=== PATIENT | female | born 1935 | race Caucasian/White ===

== ENCOUNTER 2016-05-29 17:43 | Inpatient (IN) | payer OTHER, MEDICARE ==
[2016-05-29 17:51] VITALS: BMI 26.1
--- NOTE | 2016-05-29 17:51 | PDOC ---
History of Present Illness <ValenteAmeliadiana Soria - Last Filed: 05/29/16 22:59> <Courtney Weaver - Last Filed: 06/02/16 21:48> - General Chief Complaint: Pain Stated Complaint: PCP SENT/BLOOD CLOT IN LT LEG Time Seen by Provider: 05/29/16 17:46 Past History <Amelia Victor - Last Filed: 05/29/16 22:59> <Courtney Weaver - Last Filed: 06/02/16 21:48> - Past Medical History Allergies/Adverse Reactions: Allergies Allergy/AdvReac Type Severity Reaction Status Date / Time No Known Allergies Allergy Verified 05/29/16 17:46 Home Medications: Ambulatory Orders Furosemide [Lasix -] 40 mg PO DAILY 05/29/16 Metoprolol Succinate [Toprol Xl -] 25 mg PO DAILY 05/29/16 Pantoprazole Sodium [Protonix] 40 mg PO DAILY 05/29/16 Potassium Chloride 8 meq PO DAILY 05/29/16 Zolpidem Tartrate [Ambien] 10 mg PO HS PRN 05/29/16 *Physical Exam - Vital Signs Last Vital Signs Temp Pulse Resp BP Pulse Ox 97.0 F L 63 18 119/71 97 05/29/16 17:46 05/29/16 17:46 05/29/16 17:46 05/29/16 17:46 05/29/16 17:46 <ValenteAmeliadiana Soria - Last Filed: 05/29/16 22:59> ED Treatment Course - LABORATORY CBC & Chemistry Diagram: 05/29/16 18:45 05/29/16 18:45 - ADDITIONAL ORDERS Additional order review: Laboratory Results 05/29/16 05/29/16 05/29/16 18:45 18:45 17:48 INR Cancelled 0.96 PTT (Actin FS) 33.8 Sodium 143 Potassium 4.1 Chloride 108 H Carbon Dioxide 26 Anion Gap 9 BUN 16 Creatinine 1.3 H Creat Clearance w eGFR 39.12 Random Glucose 76 Calcium 8.3 L Total Bilirubin 0.7 AST 15 ALT 13 Alkaline Phosphatase 111 Total Protein 6.6 Albumin 3.3 L 05/29/16 18:45 RBC 4.06 MCV 77.8 L MCHC 31.0 L RDW 21.0 H MPV 7.7 Neutrophils % 62.7 Lymphocytes % 21.1 Monocytes % 10.3 H Eosinophils % 3.6 Basophils % 2.3 H - RADIOLOGY Radiology Studies Ordered: Category Date Time Status CHEST CTA [CT] Stat CT Scan 05/29/16 20:43 Ordered <Amelia Victor - Last Filed: 05/29/16 22:59> - LABORATORY CBC & Chemistry Diagram: 06/02/16 07:05 06/01/16 06:30 <Courtney Weaver - Last Filed: 06/02/16 21:48> Medical Decision Making - Medical Decision Making 05/29/16 17:47 RAPID MEDICAL TRIAGE: Pt was found to have a DVT on ultrasound today. Dr. Tripathi sent her for the sono. She has left leg pain and swelling. She has complaint of SOB. 05/29/16 17:[address] Melendez, and her pulonologist is Dr. Cisneros PSHx: knee operation bilat; Left hip operation; Left shoulder operation; cholecystectomy, hysterectomy. <Courteny Weaver - Last Filed: 06/02/16 21:48> *DC/Admit/Observation/Transfer - Discharge Dispostion Admit: Yes <Amelia Victor - Last Filed: 05/29/16 22:59> <Courtney Weaver - Last Filed: 06/02/16 21:48> Diagnosis at time of Disposition: Deep venous thrombosis of left popliteal vein Qualifiers: Chronicity: acute Qualified Code(s): I82.432 - Acute embolism and thrombosis of left popliteal vein
[2016-05-29 19:17] LABS: BASOPHIL 2.3 % (0-2.0); EOSINOPHIL 3.6 % (0-4.5); MCH 24.1 pg (25.7-33.7); MEAN CELL VOLUME 77.8 fl (80-96); MEAN PLT VOLUME 7.7 fl (7.5-11.1); NEUTROPHILS 62.7 % (42.8-82.8); PLATELET COUNT 171 K/MM3 (134-434); WHITE BLOOD COUNT 4.4 K/mm3 (4.0-10.0)
[2016-05-29 19:52] LABS: ALBUMIN 3.3 g/dl (3.4-5.0); BILIRUBIN,TOTAL 0.7 mg/dL (0.2-1.0); CALCIUM 8.3 mg/dL (8.5-10.1); CREATININE 1.3 mg/dL (0.55-1.02); TOT PROT 6.6 g/dl (6.4-8.2)
[2016-05-29 20:11] LABS: INR 0.96 (0.82-1.09); PROTHROMBIN TIME (PATIENT) 10.6 SEC (9.98-11.88)
[2016-05-29 20:13] LABS: ACTIVATED PTT 33.8 SECONDS (26.9-34.4)
[2016-05-29 20:47] LABS: ANISOCYTOSIS 2+
[2016-05-29] MEDS ORDERED: HEPARIN NA (PORCINE) 5,000 UNITS/ML 1ML VIAL IVPUSH PRN ×2 (21:32)
[2016-05-29] MEDS ORDERED: SODIUM CHLORIDE 250 ML IV STA (21:54)
[2016-05-29] MEDS ORDERED: SODIUM CHLORIDE 1,000 ML IV SCH (22:00)
[2016-05-29] MEDS ORDERED: HEPARIN NA (PORCINE) 5,000 UNITS/ML 1ML VIAL ONE (22:16)
[2016-05-29] MEDS ORDERED: HEPARIN INFUSION - 500 ML IVPB ONE (22:16)
[2016-05-29] MEDS: HEPARIN - 25,000 UNIT in SODIUM CHLORIDE 495 ML IV SCH (22:26)
--- NOTE | 2016-05-29 22:59 | PDOC ---
History of Present Illness <Amelia Victor - Last Filed: 05/29/16 22:59> - General History Source: Patient Exam Limitations: No Limitations - History of Present Illness Initial Comments: 05/29/16 23:07 The patient is an 81 year old female, with a significant past medical history of significant GI bleeds(transfusion of 18 units), who presents to the emergency department s/p diagnosis of left popliteal DVT during an ultrasound earlier today. The patient reports she has been short of breath for several days. She reports a history of a left ankle fracture with associated chronic swelling at site of fracture. She states, at first she did not pay much attention to her swelling, because her SOB was progressively worsening and was of greater concern. She reports visiting her body team member, Dr. Tripathi who did a cardiac workup and referred her to administrative support associate Dr. Cisneros. The patient reports Dr. Tripathi has sent her to the ED for follow-up on lower extremity edema and SOB. The patient reports associated dyspnea on exertion. The patient denies any chest pain, palpitations, or diaphoresis. The patient denies any fever, chills, headache, or dizziness. Allergies: None reported. Past Surgical History: Bilateral knee repair, left hip repair, left shoulder repair, cholecystectomy, hysterectomy Social History: Non-smoker. Denies alcohol or drug use. PCP: Dr. Tracey Section Cutter: Dr. Tripathi Licensed Acupuncturist: Dr. Cisneros <Elda Scruggs - Last Filed: 05/29/16 23:18> - General Chief Complaint: Pain Stated Complaint: PCP SENT/BLOOD CLOT IN LT LEG Time Seen by Provider: 05/29/16 17:46 Past History - Past Medical History Other medical history: ARITHIS - Surgical History Cholecystectomy: Yes - Psycho/Social/Smoking Cessation Hx Anxiety: No Suicidal Ideation: No Smoking History: Never smoked Have you smoked in the past 12 months: No Information on smoking cessation initiated: No Hx Alcohol Use: No Drug/Substance Use Hx: No Substance Use Type: None <Amelia Victor Estella - Last Filed: 05/29/16 22:59> <Elda Scruggs - Last Filed: 05/29/16 23:18> - Past Medical History Allergies/Adverse Reactions: Allergies Allergy/AdvReac Type Severity Reaction Status Date / Time No Known Allergies Allergy Verified 05/29/16 17:46 Home Medications: Ambulatory Orders Furosemide [Lasix -] 40 mg PO DAILY 05/29/16 Metoprolol Succinate [Toprol Xl -] 25 mg PO DAILY 05/29/16 Pantoprazole Sodium [Protonix] 40 mg PO DAILY 05/29/16 Potassium Chloride 8 meq PO DAILY 05/29/16 Zolpidem Tartrate [Ambien] 10 mg PO HS PRN 05/29/16 Review of Systems - Review of Systems Able to Perform ROS?: Yes Comments:: 05/29/16 23:07 CONSTITUTIONAL: Absent: fever, chills, diaphoresis, generalized weakness, malaise, loss of appetite HEENT: Absent: rhinorrhea, nasal congestion, throat pain, throat swelling, difficulty swallowing, mouth swelling, ear pain, eye pain, visual Changes CARDIOVASCULAR: Absent: chest pain, syncope, palpitations, irregular heart rate, lightheadedness , peripheral edema RESPIRATORY: Present: +shortness of breath, +dyspnea with exertion Absent: orthopnea, wheezing, stridor, hemoptysis GASTROINTESTINAL: Absent: abdominal pain, abdominal distension, nausea, vomiting, diarrhea, constipation, melena, hematochezia GENITOURINARY: Absent: dysuria, frequency, urgency, hesitancy, hematuria, flank pain, genital pain MUSCULOSKELETAL: Present: +Left lower extremity edema Absent: myalgia, arthralgia SKIN: Absent: rash, itching, pallor HEMATOLOGIC/IMMUNOLOGIC: Absent: easy bruising, lymphadenopathy, frequent infections ENDOCRINE: Absent: unexplained weight gain, unexplained weight loss, heat intolerance, cold intolerance NEUROLOGIC: Absent: headache, focal weakness or paresthesias, dizziness, unsteady gait, seizure, mental status changes, bladder or bowel incontinence PSYCHIATRIC: Absent: anxiety, depression, suicidal or homicidal ideation, hallucinations. <Elda Scruggs - Last Filed: 05/29/16 23:18> *Physical Exam - Vital Signs Last Vital Signs Temp Pulse Resp BP Pulse Ox 97.3 F L 71 20 110/64 95 05/29/16 22:28 05/29/16 22:28 05/29/16 22:28 05/29/16 22:28 05/29/16 22:28 <Amelia Victor - Last Filed: 05/29/16 22:59> - Vital Signs Last Vital Signs Temp Pulse Resp BP Pulse Ox 97.3 F L 71 20 110/64 95 05/29/16 22:28 05/29/16 22:28 05/29/16 22:28 05/29/16 22:28 05/29/16 22:28 - Physical Exam Comments: 05/29/16 23:08 GENERAL: Well developed, well nourished. Awake and alert. No acute distress. HEENT: Normocephalic, atraumatic. PERRLA, EOMI. No conjunctival pallor. Sclera are non- icteric. Moist mucous membranes. Oropharynx is clear. NECK: Supple. Full ROM. No JVD. Carotid pulses 2+ and symmetric, without bruits. No thyromegaly. No lymphadenopathy. CARDIOVASCULAR: Regular rate and rhythm. No murmurs, rubs, or gallops. Distal pulses are 2+ and symmetric. PULMONARY: No evidence of respiratory distress. Lungs clear to auscultation bilaterally. No wheezing, rales or rhonchi. ABDOMINAL: Soft. Non-tender. Non-distended. No rebound or guarding. No organomegaly. Normoactive bowel sounds. MUSCULOSKELETAL Normal range of motion at all joints. No bony deformities or tenderness. No CVA tenderness. EXTREMITIES: Edema to the left leg. Left leg mildly tender to palpation. No evidence of induration, erythema, red streaking, or cellulitis to the left leg. No cyanosis. No clubbing. SKIN: Warm and dry. Normal capillary refill. No rashes. No jaundice. NEUROLOGICAL: Alert, awake, appropriate. Cranial nerves 2-12 intact. No deficits to light touch and temperature in face, upper extremities and lower extremities. No motor deficits in the in face, upper extremities and lower extremities. Normoreflexic in the upper and lower extremities. Normal speech. Toes are down- going bilaterally. Gait is normal without ataxia. PSYCHIATRIC: Cooperative. Good eye contact. Appropriate mood and affect. <Elda Scruggs - Last Filed: 05/29/16 23:18> Heart Score/ECG Review - ECG Impressions Comment:: 05/29/16 23:10 Vent. Rate: 60 bpm IMPRESSION: Normal sinus rhythm. <Elda Scruggs - Last Filed: 05/29/16 23:18> ED Treatment Course - LABORATORY CBC & Chemistry Diagram: 05/29/16 18:45 05/29/16 18:45 - ADDITIONAL ORDERS Additional order review: Laboratory Results 05/29/16 05/29/16 05/29/16 18:45 18:45 17:48 INR Cancelled 0.96 PTT (Actin FS) 33.8 Sodium 143 Potassium 4.1 Chloride 108 H Carbon Dioxide 26 Anion Gap 9 BUN 16 Creatinine 1.3 H Creat Clearance w eGFR 39.12 Random Glucose 76 Calcium 8.3 L Total Bilirubin 0.7 AST 15 ALT 13 Alkaline Phosphatase 111 Total Protein 6.6 Albumin 3.3 L 05/29/16 18:45 RBC 4.06 MCV 77.8 L MCHC 31.0 L RDW 21.0 H MPV 7.7 Neutrophils % 62.7 Lymphocytes % 21.1 Monocytes % 10.3 H Eosinophils % 3.6 Basophils % 2.3 H - RADIOLOGY Radiology Studies Ordered: Category Date Time Status CHEST CTA [CT] Stat CT Scan 05/29/16 20:43 Taken - Medications Given in the ED: ED Medications Discontinued Medications Generic Name Dose Route Start Last Admin Trade Name Freq PRN Reason Stop Dose Admin Sodium Chloride 250 mls @ 500 mls/hr 05/29/16 21:54 05/29/16 22:27 Normal Saline - IV 05/29/16 22:23 500 mls/hr ASDIR STA Administration <Amelia Victor - Last Filed: 05/29/16 22:59> - LABORATORY CBC & Chemistry Diagram: 05/29/16 18:45 05/29/16 18:45 - ADDITIONAL ORDERS Additional order review: Laboratory Results 05/29/16 05/29/16 05/29/16 18:45 18:45 17:48 INR Cancelled 0.96 PTT (Actin FS) 33.8 Sodium 143 Potassium 4.1 Chloride 108 H Carbon Dioxide 26 Anion Gap 9 BUN 16 Creatinine 1.3 H Creat Clearance w eGFR 39.12 Random Glucose 76 Calcium 8.3 L Total Bilirubin 0.7 AST 15 ALT 13 Alkaline Phosphatase 111 Total Protein 6.6 Albumin 3.3 L 05/29/16 18:45 RBC 4.06 MCV 77.8 L MCHC 31.0 L RDW 21.0 H MPV 7.7 Neutrophils % 62.7 Lymphocytes % 21.1 Monocytes % 10.3 H Eosinophils % 3.6 Basophils % 2.3 H - RADIOLOGY Radiograph Interpretation: 05/29/16 23:11 EXAM: CXR INTERPRETED BY: Dr. Taveras REVIEWED BY: Dr. Victor IMPRESSION: The cardiac silhouette is slightly enlarged with mild unfolding of the aortic arch and a tortuous descending thoracic aorta. There are mild perihilar increased lung markings. Mediastinum and visualized osseous structures appear intact with mild to moderate dextroscoliosis of the thoracic spine. A left shoulder prosthesis is present in satisfactory alignment. EXAM: Chest CTA INTERPRETED BY: Dr. Taveras REVIEWED BY: Dr. Victor IMPRESSION: There is no evidence of a pulmonary embolus in the main pulmonary artery and its proximal branches , bilaterally. Right hepatic lobe cyst measuring 1.9 cm. Nonvisualization of the gallbladder with dilatation of the common hepatic duct and borderline dilatation of the common bile duct. Please correlate with ultrasound. There is also a large partially included cystic density anterior to the right kidney for which further evaluation with CT scan of the abdomen and pelvis is needed. - Medications Given in the ED: ED Medications Discontinued Medications Generic Name Dose Route Start Last Admin Trade Name Freq PRN Reason Stop Dose Admin Sodium Chloride 250 mls @ 500 mls/hr 05/29/16 21:54 05/29/16 22:27 Normal Saline - IV 05/29/16 22:23 500 mls/hr ASDIR STA Administration <Elda Scruggs - Last Filed: 05/29/16 23:18> Medical Decision Making - Medical Decision Making 05/29/16 23:08 First call placed to Dr. Tracey at 21:35. Case discussed. Dr. Tracey agreed to come and see the patient in the ED. <Elda Scruggs - Last Filed: 05/29/16 23:18> *DC/Admit/Observation/Transfer <Amelia Victor - Last Filed: 05/29/16 22:59> - Attestations Scribe Attestion: 05/29/16 23:10 Documentation prepared by Elda Scruggs, acting as medical doctor for Amelia Victor MD. <Elda Scruggs - Last Filed: 05/29/16 23:18> Diagnosis at time of Disposition: Deep venous thrombosis of left popliteal vein Qualifiers: Chronicity: acute Qualified Code(s): I82.432 - Acute embolism and thrombosis of left popliteal vein
--- NOTE | 2016-05-29 23:49 | HP ---
Admitting History and Physical - Admission Chief Complaint: dyspnea History of Present Illness: 81 y/o female with poor medical follow up brought to our office by family member for progressive SOB over months. She resides in [place] and was hospitalized over a week ago for several days for "bronchitis" she was treated and discharged but her breathing never improved. Patient was seen at the office and referred to pulmonary ( Dr Cisneros) as out patient / she was also seen by Cardiology ( Dr Tripathi ). Out patient u/s significant for DVT, left Popliteal, she was sent to ER. She also reports hx of Left ankle fracture and chronic swelling after said fx, but followed by podiatry and no recent changes reported Patient denies Chest pain / diaphoresis/ fever / chill / productive coughing History Source: Patient, Family Member, Friend, Medical Record Limitations to Obtaining History: Poor Historian - Past Medical History Pulmonary: Yes: Other (progresive SOB) ...: No Heme/Onc: Yes: Other (bleeding disorder ?? unclear stated had GI bleed that required 18 unit of blood ???) Musculoskeletal: Yes: Osteoarthritis - Past Surgical History Past Surgical History: Yes: Arthrosocopy, Cholecystectomy, Hysterectomy, Joint Replacement - Smoking History Smoking history: Never smoked Have you smoked in the past 12 months: No - Alcohol/Substance Use Hx Alcohol Use: No - Social History Usual Living Arrangement: Yes: Alone ADL: Family Assistance History of Recent Travel: No Home Medications - Allergies Allergies/Adverse Reactions: Allergies Allergy/AdvReac Type Severity Reaction Status Date / Time No Known Allergies Allergy Verified 05/29/16 17:46 - Home Medications Home Medications: Ambulatory Orders Furosemide [Lasix -] 40 mg PO DAILY 05/29/16 Metoprolol Succinate [Toprol Xl -] 25 mg PO DAILY 05/29/16 Pantoprazole Sodium [Protonix] 40 mg PO DAILY 05/29/16 Potassium Chloride 8 meq PO DAILY 05/29/16 Zolpidem Tartrate [Ambien] 10 mg PO HS PRN 05/29/16 Review of Systems - Review of Systems Constitutional: reports: No Symptoms Eyes: reports: No Symptoms Neck: reports: No Symptoms Cardiovascular: reports: Shortness of Breath Respiratory: reports: Exercise Intolerance, Orthopnea, SOB on Exertion, Wheezing Gastrointestinal: reports: No Symptoms Genitourinary: reports: No Symptoms Breasts: reports: No Symptoms Reported Musculoskeletal: reports: No Symptoms Integumentary: reports: No Symptoms Neurological: reports: No Symptoms Endocrine: reports: No Symptoms Hematology/Lymphatic: reports: No Symptoms Psychiatric: reports: No Symptoms Physical Examination Vital Signs: Vital Signs Temperature 97.3 F L 05/29/16 22:28 Pulse Rate 71 05/29/16 22:28 Respiratory Rate 20 05/29/16 22:28 Blood Pressure 110/64 05/29/16 22:28 O2 Sat by Pulse Oximetry (%) 95 05/29/16 22:28 Constitutional: Yes: Well Nourished, Moderate Distress (MCKEON - just walked back from bathroom unable to speak in full sentences. "holding her chest" but denies chest pain) Eyes: Yes: WNL HENT: Yes: WNL Neck: Yes: WNL Cardiovascular: Yes: WNL Respiratory: Yes: Diminished, Poor Air Entry, Rhonchi, Wheezes Gastrointestinal: Yes: Normal Bowel Sounds, Soft Renal/: Yes: WNL Musculoskeletal: Yes: WNL Extremities: Yes: WNL Edema: LLE: 1+, RLE: 1+ Peripheral Pulses: Left Radial: 1+, Right Radial: 1+, Left Doralis Pedis: 1+, Right Dorsalis Pedis: 1+, Left Femoral: 1+, Right Femoral: 1+ Integumentary: Yes: WNL Neurological: Yes: Alert, Oriented Problem List - Problems (1) Dyspnea Code(s): R06.00 - DYSPNEA, UNSPECIFIED (2) Deep venous thrombosis of left popliteal vein Code(s): I82.432 - ACUTE EMBOLISM AND THROMBOSIS OF LEFT POPLITEAL VEIN Qualifiers: Chronicity: acute Qualified Code(s): I82.432 - Acute embolism and thrombosis of left popliteal vein (3) Dyspnea on exertion Code(s): R06.09 - OTHER FORMS OF DYSPNEA (4) HTN (hypertension) Code(s): I10 - ESSENTIAL (PRIMARY) HYPERTENSION Assessment/Plan ASSMT / plan # DVT A/c - observe for bleeding ?? IVC filter vs digital specialist a/c # Dyspnea COPD no hx of smoking but admits many yrs of 2nd hand smoking recently treated for Bronchitis with abx / nebulizer without improvment of sx progressive over many "months to years" will d/c BBlocker Echcardiogram for LVF ? CHF component # Gi Bleed by hx will havve to request hx from family or hosp PPi for gi prophylaxis # HTN follow Bp resume meds if needed, will give amlodipine
[2016-05-30] MEDS ORDERED: methylPREDNISolone NA SUCC 125 MG/2 ML VIAL ONE (02:38)
[2016-05-30] MEDS: methylPREDNISolone NA SUCC 125 MG/2 ML VIAL IVPB SCH ×4 (02:39→21:44)
[2016-05-30 05:35] LABS: BASOPHIL 1.4 % (0-2.0); EOSINOPHIL 2.3 % (0-4.5); MCH 24.1 pg (25.7-33.7); MCHC 31.6 g/dl (32.0-36.0); MEAN CELL VOLUME 76.4 fl (80-96); MEAN PLT VOLUME 7.9 fl (7.5-11.1); NEUTROPHILS 83.6 % (42.8-82.8); PLATELET COUNT 137 K/MM3 (134-434); RDW 20.7 % (11.6-15.6)
[2016-05-30 06:33] LABS: ALBUMIN 2.7 g/dl (3.4-5.0); BILIRUBIN,TOTAL 0.4 mg/dL (0.2-1.0); CALCIUM 7.9 mg/dL (8.5-10.1); CREATININE 1.2 mg/dL (0.55-1.02); TOT PROT 5.9 g/dl (6.4-8.2)
[2016-05-30 08:08] LABS: BASOPHIL 1.3 % (0-2.0); EOSINOPHIL 0.6 % (0-4.5); MCH 23.8 pg (25.7-33.7); MCHC 30.9 g/dl (32.0-36.0); MEAN PLT VOLUME 7.6 fl (7.5-11.1); NEUTROPHILS 83.3 % (42.8-82.8); PLATELET COUNT 129 K/MM3 (134-434); RDW 21.5 % (11.6-15.6); WHITE BLOOD COUNT 3.3 K/mm3 (4.0-10.0)
[2016-05-30] MEDS: ALBUTEROL SO4 2.5/IPRATROPIUM 0.5 INH SOL 3 ML VIAL.NEB. NEB SCH ×2 (08:21→18:40)
[2016-05-30] MEDS ORDERED: ALBUTEROL SO4 2.5/IPRATROPIUM 0.5 INH SOL 3 ML VIAL.NEB. NEB ONE (08:22)
[2016-05-30 08:46] LABS: INR 1.02 (0.82-1.09); PROTHROMBIN TIME (PATIENT) 11.2 SEC (9.98-11.88)
[2016-05-30] MEDS ORDERED: PANTOPRAZOLE 40 MG TABLET (FP) ONE (08:57)
[2016-05-30] MEDS: PANTOPRAZOLE 40 MG TABLET (FP) PO SCH (09:03)
--- NOTE | 2016-05-30 09:52 | PN ---
Progress Note (short form) - Note Progress Note: tatiana seen in ER Holding area breathing bettter this am still with pain to left LE minimal edema Vital Signs Period Temp Pulse Resp BP Sys/Calvillo Pulse Ox Last 24 Hr 97.0 F-98 F 60-71 18-20 110-120/63-71 95-100 neck _ jvd heart reg S1/S2 lungs improved air movement / wheezing abd soft non tender ext pain to left LE CBC, BMP 05/30/16 07:50 Active Medications Albuterol/Ipratropium (Duoneb -) 1 amp NEB QIDR TAWANNA Last Admin: 05/30/16 08:21 Dose: 1 amp Heparin Sodium (Porcine) (Heparin -) 1,000 unit IVPUSH PRN PRN PRN Reason: Heparin Heparin Sodium (Porcine) (Heparin -) 5,000 unit IVPUSH PRN PRN PRN Reason: Heparin Last Admin: 05/29/16 22:26 Dose: 5,000 unit Heparin Sodium (Porcine) 25, (000 unit/ Sodium Chloride) 500 mls @ 20 mls/hr IV TITR TAWANNA; 1,000 UNIT/HR PRN Reason: Protocol Last Titration: 05/30/16 08:19 Dose: 700 unit/hr Methylprednisolone Sodium Succinate (Solu-Medrol -) 80 mg IVPB Q8H-IV TAWANNA Last Admin: 05/30/16 02:39 Dose: 80 mg Pantoprazole Sodium (Protonix -) 40 mg PO DAILY TAWANNA Last Admin: 05/30/16 09:03 Dose: 40 mg Assessment/Plan ASSMT / plan # DVT A/c - observe for bleeding ?? IVC filter vs alf a/c # Dyspnea COPD no hx of smoking but admits many yrs of 2nd hand smoking recently treated for Bronchitis with abx / nebulizer without improvment of sx progressive over many "months to years" will d/c BBlocker Echcardiogram for LVF ? CHF component # Gi Bleed by hx will have to request hx from family or hosp PPi for gi prophylaxis follow H/H # HTN follow Bp resume meds if needed, will give amlodipine Problem List - Problems (1) Dyspnea Code(s): R06.00 - DYSPNEA, UNSPECIFIED (2) Deep venous thrombosis of left popliteal vein Code(s): I82.432 - ACUTE EMBOLISM AND THROMBOSIS OF LEFT POPLITEAL VEIN Qualifiers: Chronicity: acute Qualified Code(s): I82.432 - Acute embolism and thrombosis of left popliteal vein (3) Dyspnea on exertion Code(s): R06.09 - OTHER FORMS OF DYSPNEA (4) HTN (hypertension) Code(s): I10 - ESSENTIAL (PRIMARY) HYPERTENSION
[2016-05-30 09:58] LABS: ALBUMIN 2.7 g/dl (3.4-5.0); BILIRUBIN,TOTAL 0.4 mg/dL (0.2-1.0); CREATININE 1.1 mg/dL (0.55-1.02); TOT PROT 5.9 g/dl (6.4-8.2)
[2016-05-30] MEDS ORDERED: methylPREDNISolone NA SUCC 40 MG/1 ML VIAL ONE (10:04)
--- NOTE | 2016-05-30 11:36 | CON.CARD ---
Cardiology Consult (text) - Consultation Consultation Note: cc: dvt hpi: 81 f hx possible copd, htn, le edema/venous insuff, here with dvt. For past year or so pt has had chronic atypical cp (mild central pressure, sometimes worse with deep breath or movements, not always exertional, resolves on own in minutes, no radiation), brewster, le edema. No loc, pnd, palps. Uses to 2 pillows to sleep, has chronic mild le edema. Saw dr mauricio for cardio eval yesterday and had outpt le duplex showing left dvt so sent to ER for eval. No hx hrt dz. pmh: per hpi psh: knee, hip surgeries social: no tob fam: no premature cad, scd ros: per hpi; no nvd, fever, cough, nasal congestion, WATERS, vision changes, wt loss, +pain/tenderness to anglin/calf of left LE meds: Home Medications Medication Instructions Recorded Furosemide [Lasix -] 40 mg PO DAILY 05/29/16 Metoprolol Succinate [Toprol Xl -] 25 mg PO DAILY 05/29/16 Pantoprazole Sodium [Protonix] 40 mg PO DAILY 05/29/16 Potassium Chloride 8 meq PO DAILY 05/29/16 Zolpidem Tartrate [Ambien] 10 mg PO HS PRN 05/29/16 pe: Vital Signs Period Temp Pulse Resp BP Sys/Calvillo Pulse Ox Last 24 Hr 97.0 F-98 F 60-71 18-20 110-120/63-71 95-100 nad no jvd rrr s1s2 no mrg cta bl nl eff aaox3 pos dp pt no carotid bruit abd nt nd pos bs no jaundice diaphoresis +tenderness to anglin/calf of left LE with trace left le edema; no sig le edema on right Lab Results WBC 3.3 K/mm3 (4.0-10.0) L 05/30/16 07:50 RBC 3.90 M/mm3 (3.60-5.2) 05/30/16 07:50 Hgb 9.3 GM/dL (10.7-15.3) L 05/30/16 07:50 Hct 30.0 % (32.4-45.2) L 05/30/16 07:50 MCV 77.0 fl (80-96) L 05/30/16 07:50 MCHC 30.9 g/dl (32.0-36.0) L 05/30/16 07:50 RDW 21.5 % (11.6-15.6) H 05/30/16 07:50 Plt Count 129 K/MM3 (134-434) L 05/30/16 07:50 Sodium 144 mmol/L (136-145) 05/30/16 07:50 Potassium 4.0 mmol/L (3.5-5.1) 05/30/16 07:50 Chloride 111 mmol/L (98-107) H 05/30/16 07:50 Carbon Dioxide 23 mmol/L (21-32) 05/30/16 07:50 Anion Gap 10 (8-16) 05/30/16 07:50 BUN 16 mg/dL (7-18) 05/30/16 07:50 Creatinine 1.1 mg/dL (0.55-1.02) H 05/30/16 07:50 Random Glucose 137 mg/dL (74-106) H 05/30/16 07:50 Calcium 8.0 mg/dL (8.5-10.1) L 05/30/16 07:50 INR 1.02 (0.82-1.09) 05/30/16 07:50 cta chest: no pe, no aortic diss/aneurysm, no chf/infiltrates ecg 05/29/16: sr, nl intervals, no ischemic changes a/p: 81 f hx possible copd, htn, le edema/venous insuff, here with dvt. dvt: -outpt le duplex 05/29/16 showed left popliteal dvt -cta chest shows no PE -has been started on hep gtt -pt has hx of gib (05/2015, diverticular, requiring prbcs) so will have to monitor hgb while on hep gtt. If any signs of hgb drop/gib then may need to reconsider ac and consider ivc filter instead. sob, possible copd: -chronic symptom for patient, no acute changes -cta chest here w/o pe and no signs chf or infiltrates -does not clinically appear vol overloaded aside from mild le edema in dvt leg ( cr improved with ivfs here as well), so would hold off on aggressive diuresis for now -possible copd so started on iv steroid trial here to see if helps -also bb stopped here to see if was contributing to sob -check echo htn: -bb stopped here in case was worsening copd -was also on norvasc 5 qd at home, resume if bp becomes elevated, can monitor off meds for now le edema/venous insuff: -at home was on lasix 40 qd -currently only mild le edema in leg with dvt -after ivfs here cr has improved so maybe was a little dry initially -now that getting iv steroids she may develop further le edema so may need to resume home lasix 40 qd, monitor le edema for now cp: -atypical, chronic symptom for patient, no acute changes -ecg unremarkable -check echo -outpt stress test after acute issues resolved as planned with dr mauricio
--- NOTE | 2016-05-30 13:24 | PN ---
Progress Note (short form) - Note Progress Note: PULMONARY CONSULTATION DICTATED 05/30/16 IMP LLE DVT LIKELY COPD ? ASHD HTN PLAN IV HEPARIN INHALED BRONCHODILATORS SOLUMEDROL MONITOR PLT CT CARDIAC W/U O2 SAT AT REST AND POST EXERCISE ON RA PFTS ECHO DR CALDERON Problem List - Problems (1) Deep venous thrombosis of left popliteal vein Code(s): I82.432 - ACUTE EMBOLISM AND THROMBOSIS OF LEFT POPLITEAL VEIN Qualifiers: Chronicity: acute Qualified Code(s): I82.432 - Acute embolism and thrombosis of left popliteal vein (2) Dyspnea Code(s): R06.00 - DYSPNEA, UNSPECIFIED (3) Dyspnea on exertion Code(s): R06.09 - OTHER FORMS OF DYSPNEA (4) HTN (hypertension) Code(s): I10 - ESSENTIAL (PRIMARY) HYPERTENSION (5) Chest pain Code(s): R07.9 - CHEST PAIN, UNSPECIFIED (6) COPD (chronic obstructive pulmonary disease) Code(s): J44.9 - CHRONIC OBSTRUCTIVE PULMONARY DISEASE, UNSPECIFIED
--- NOTE | 2016-05-30 16:09 | EKG ---
Test Reason : Blood Pressure : / mmHG Vent. Rate : 060 BPM Atrial Rate : 060 BPM P-R Int : 148 ms QRS Dur : 056 ms QT Int : 440 ms P-R-T Axes : 078 021 044 degrees QTc Int : 440 ms POOR DATA QUALITY, INTERPRETATION MAY BE ADVERSELY AFFECTED NORMAL SINUS RHYTHM NORMAL ECG NO PREVIOUS ECGS AVAILABLE Confirmed by EMBER CHRISTIAN MD ([id number]) on 05/30/2016 4:09:46 PM Referred By: Confirmed By:EMBER CHRISTIAN MD
--- NOTE | 2016-05-30 17:04 | CONS ---
DATE OF CONSULTATION: 05/30/2016 REFERRING PHYSICIAN: Ghada Tracey MD The patient is an 81-year-old white female with a past medical history of questionable COPD, hypertension, lower extremity edema. No previous history of DVT. Non-smoker. A history of second-hand smoke exposure. Admitted to [facility] with shortness of breath, chest pain, and lower extremity DVT. I initially evaluated the patient yesterday in my office. At the time, she presented with the complaint of shortness of breath with minimal exertion of walking a few feet as well as chest pain. She described the pain as sharp in character as well as pressure-like. Denied any nausea, vomiting or diaphoresis. Of note is she recently was hospitalized at [facility] secondary to COPD/bronchitis. According to the patient's niece, she has had persistent dyspnea since discharge and it was not significantly improved from prior hospitalization. The patient went to see Dr Tripathi yesterday, at which time she had a duplex of the lower extremity which revealed a left lower extremity DVT. She was admitted to [facility] for therapy. She states that she always has swelling of her lower extremity. Of note is when I examined her in the office yesterday, her left lower extremity was edematous and she had some tenderness, and she was advised to go for a duplex. The patient has complaints of shortness of breath with minimal exertion. She denies any fevers, chills, weight loss or night sweats. 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 She denies any recent travel. There is no previous history of deep vein thrombosis. PAST MEDICAL HISTORY: Again, includes possible COPD, bronchitis, hypertension, lower extremity edema, probably venous insufficiency. REVIEW OF SYSTEMS: Positive orthopnea. Positive PND. Positive chest pain. Positive chest pressure. Positive dyspnea with minimal exertion. No fevers. No chills. No weight loss. No night sweats. No hemoptysis. No abdominal pain. Positive lower extremity edema. MEDICATIONS PRIOR TO ADMISSION: Include Lasix, metoprolol, Protonix, KCl. CURRENT MEDICATIONS: Include Solu-Medrol, heparin, DuoNeb, and Protonix. PHYSICAL EXAMINATION: General: The patient is an elderly white female, thin, well-developed, awake, alert, in no acute distress. Vital signs: She is currently afebrile; heart rate is 68; blood pressure is 132 /71; respiratory rate is 18; O2 saturation is 96% on room air. HEENT: Exam is normocephalic, atraumatic. Neck: Supple. Heart: Regular S1 and S2. Chest: Bibasilar crackles. Abdomen: Soft. Bowel sounds positive. Extremities: The left lower extremity is edematous, mild tenderness in the left calf, and there is some mild edema. LABORATORIES: WBC is 3.3, hemoglobin 9.3, hematocrit 30, platelet count is 129, 000. INR is 1.02. Chemistries: BUN 16, creatinine 1.1. Chest CT with no evidence of pulmonary embolism. There is a right hepatic cyst. There is a large, partially-occluded, cystic density in the right kidney. No masses appreciated. There are no pleural effusions appreciated. IMPRESSION: 1. Left lower extremity deep vein thrombosis. 2. Likely chronic obstructive pulmonary disease. 3. Rule out possible atherosclerotic heart disease and/or anginal equivalent. 4. History of hypertension. PLAN: Inhaled bronchodilators. Supplemental O2. Heparin. Short course of steroids. O2 saturation at rest and post-exercise. Continue cardiac workup. Obtain echocardiogram. JUAN CARLOS CALDERON M.D. [id number] MTDD
--- NOTE | 2016-05-30 17:41 | CONSULT ---
Consult - Past Medical History Pulmonary: Yes: Other (progresive SOB) ...: No Musculoskeletal: Yes: Osteoarthritis - Past Surgical History Past Surgical History: Yes: Arthrosocopy, Cholecystectomy, Hysterectomy, Joint Replacement - Alcohol/Substance Use Hx Alcohol Use: No - Smoking History Smoking history: Never smoked Have you smoked in the past 12 months: No - Social History ADL: Family Assistance History of Recent Travel: No Home Medications - Allergies Allergies/Adverse Reactions: Allergies Allergy/AdvReac Type Severity Reaction Status Date / Time No Known Allergies Allergy Verified 05/29/16 17:46 - Home Medications Home Medications: Ambulatory Orders Furosemide [Lasix -] 40 mg PO DAILY 05/29/16 Metoprolol Succinate [Toprol Xl -] 25 mg PO DAILY 05/29/16 Pantoprazole Sodium [Protonix] 40 mg PO DAILY 05/29/16 Potassium Chloride 8 meq PO DAILY 05/29/16 Zolpidem Tartrate [Ambien] 10 mg PO HS PRN 05/29/16 Physical Exam Vital Signs: Vital Signs Temperature 97.2 F L 05/30/16 14:00 Pulse Rate 94 H 05/30/16 15:02 Respiratory Rate 20 05/30/16 14:00 Blood Pressure 160/80 05/30/16 14:00 O2 Sat by Pulse Oximetry (%) 95 05/30/16 15:02 Labs: CBC, BMP 05/30/16 07:50 05/30/16 07:50 Assessment/Plan Vascular Surgery 81 y/o female with poor medical follow up brought to PMD's office by family member for progressive SOB over months. She resides in [place] and was hospitalized over a week ago for several days for "bronchitis" she was treated and discharged but her breathing never improved. Patient was seen at the office and referred to pulmonary ( Dr Cisneros) as out patient / she was also seen by Cardiology ( Dr Tripathi ). Out patient u/s significant for DVT, left Popliteal, she was sent to ER. She also reports hx of Left ankle fracture and chronic swelling after said fx, but followed by podiatry and no recent changes reported Patient denies Chest pain / diaphoresis/ fever / chill / productive coughing PE head - NC/At Lung - CTA heart - RRR abd - soft,nt,nd ext - left leg swelling, palpable pulses. A/P Left lower ext dvt. on IV heparin. question of GI bleed in [facility]. according to pt -- she recieved 18 units of blood. If pt cannot be anticoagulated due to this reason, can then place IVC filter if needed. Will be on standby Pt needs 6 months of AC Salvador collins DO
[2016-05-30] MEDS: HEPARIN - 25,000 UNIT in SODIUM CHLORIDE 495 ML IV SCH (18:10)
[2016-05-30 20:33] LABS: TROPONIN I < 0.02 ng/ml (0.00-0.05)
[2016-05-31] MEDS: HEPARIN - 25,000 UNIT in SODIUM CHLORIDE 495 ML IV SCH ×2 (02:25→07:19)
[2016-05-31] MEDS: methylPREDNISolone NA SUCC 125 MG/2 ML VIAL IVPB SCH ×4 (02:25→21:27)
[2016-05-31 06:10] LABS: SERUM IRON 21 ug/dL (27-139); TOTAL IRON BINDING CAPACITY 274 ug/dL (250-450); UIBC 253 ug/dL (118-369)
[2016-05-31] MEDS: ALBUTEROL SO4 2.5/IPRATROPIUM 0.5 INH SOL 3 ML VIAL.NEB. NEB SCH ×4 (06:45→18:23)
[2016-05-31] MEDS ORDERED: HEPARIN INFUSION - 500 ML IVPB ONE (07:09)
[2016-05-31 07:56] LABS: BASOPHIL 0.2 % (0-2.0); MCH 23.5 pg (25.7-33.7); MCHC 30.7 g/dl (32.0-36.0); MEAN CELL VOLUME 76.7 fl (80-96); MEAN PLT VOLUME 7.7 fl (7.5-11.1); NEUTROPHILS 86.8 % (42.8-82.8); PLATELET COUNT 117 K/MM3 (134-434); RDW 21.1 % (11.6-15.6); WHITE BLOOD COUNT 4.4 K/mm3 (4.0-10.0)
[2016-05-31 08:40] LABS: ALBUMIN 2.7 g/dl (3.4-5.0); BILIRUBIN,TOTAL 0.3 mg/dL (0.2-1.0); CALCIUM 8.1 mg/dL (8.5-10.1); CREATININE 1.1 mg/dL (0.55-1.02); TOT PROT 5.8 g/dl (6.4-8.2)
[2016-05-31] MEDS ORDERED: POTASSIUM CHLORIDE 20 MEQ PREMIX IVPB 100 ML IVPB ONE (09:14)
[2016-05-31] MEDS: PANTOPRAZOLE 40 MG TABLET (FP) PO SCH (10:02)
[2016-05-31] MEDS: amLODIPine BESYLATE 5 MG TABLET (FP) PO SCH (10:02)
[2016-05-31] MEDS ORDERED: POTASSIUM CHLORIDE TABS 20 MEQ TABLET.ER (FP) PO ONE (10:30)
--- NOTE | 2016-05-31 10:35 | PN ---
Progress Note (short form) - Note Progress Note: s: still sob with exertion but a little better today; no cp palps dizzy o: Vital Signs Period Temp Pulse Resp BP Sys/Calvillo Pulse Ox Last 24 Hr 97.2 F-97.4 F 68-94 18-20 132-160/71-88 95-95 nad no jvd rrr s1s2 no mrg cta bl nl eff aaox3 abd nt nd pos bs no jaundice diaphoresis +tenderness to anglin/calf of left LE with trace left le edema; no sig le edema on right Current Medications Generic Name Dose Route Start Last Admin Trade Name Freq PRN Reason Stop Dose Admin Albuterol/Ipratropium 1 amp 05/30/16 06:00 05/31/16 06:45 Duoneb - NEB 1 amp QIDR TAWANNA Administration Amlodipine Besylate 5 mg 05/31/16 10:00 05/31/16 10:02 Norvasc - PO 5 mg DAILY TAWANNA Administration Heparin Sodium (Porcine) 1,000 unit 05/29/16 21:32 Heparin - IVPUSH PRN PRN Heparin Heparin Sodium (Porcine) 5,000 unit 05/29/16 21:32 05/29/16 22:26 Heparin - IVPUSH 5,000 unit PRN PRN Administration Heparin Heparin Sodium (Porcine) 25, 500 mls @ 20 mls/hr 05/29/16 21:45 05/31/16 07:19 000 unit/ Sodium Chloride IV 18 mls/hr TITR TAWANNA Administration Protocol 1,000 UNIT/HR Methylprednisolone Sodium Succinate 60 mg 05/30/16 15:00 05/31/16 10:02 Solu-Medrol - IVPB 60 mg Q6H-IV TAWANNA Administration Pantoprazole Sodium 40 mg 05/30/16 10:00 05/31/16 10:02 Protonix - PO 40 mg DAILY TAWANNA Administration CBC, BMP 05/31/16 07:00 05/31/16 07:00 cta chest: no pe, no aortic diss/aneurysm, no chf/infiltrates ecg 05/29/16: sr, nl intervals, no ischemic changes echo 05/2016: mild lve, nl lvef, mild lae, mod mr, mild-mod tr, rvsp 30-40, RV not mentioned in report a/p: 81 f hx possible copd, htn, le edema/venous insuff, here with dvt. dvt: -outpt le duplex 05/29/16 showed left popliteal dvt -cta chest shows no PE -has been started on hep gtt -pt has hx of gib (05/2015, diverticular, requiring prbcs) so will have to monitor hgb while on hep gtt. If any signs of hgb drop/gib then may need to reconsider ac and consider ivc filter instead. sob, possible copd: -chronic symptom for patient, no acute changes -cta chest here w/o pe and no signs chf or infiltrates -echo here unremarkable -does not clinically appear vol overloaded aside from mild le edema in dvt leg ( cr improved with ivfs here as well), so would hold off on aggressive diuresis for now -possible copd so started on iv steroid trial here to see if helps, today pt reports slightly improved sob -also bb stopped here to see if was contributing to sob htn: -bb stopped here in case was worsening copd -was also on norvasc 5 qd at home, will resume now as bp elevated le edema/venous insuff: -at home was on lasix 40 qd -currently only mild le edema in leg with dvt -after ivfs here cr has improved so maybe was a little dry initially -now that getting iv steroids she may develop further le edema so will resume home lasix 40 qd cp: -atypical, chronic symptom for patient, no acute changes -ecg unremarkable -echo unremarkable -outpt stress test after acute issues resolved as planned with dr mauricio
--- NOTE | 2016-05-31 11:04 | PN ---
Progress Note (short form) - Note Progress Note: PULMONARY States breathing slightly improving. +nonproductive cough without wheezing. No fevers or chills. Some pleuritic discomfort with deep inspiration. Last Vital Signs Temp Pulse Resp BP Pulse Ox 97.4 F L 81 18 150/88 95 05/31/16 06:25 05/31/16 06:25 05/31/16 06:25 05/31/16 06:25 05/30/16 21:42 Gen: mildly tachypneic with speaking Heart: RRR Lung: decreased breath sounds at the bases Abd: soft, nontender Ext: LLE edema CBC, BMP 05/31/16 07:00 05/31/16 07:00 Active Medications Albuterol/Ipratropium (Duoneb -) 1 amp NEB QIDR [facility] Last Admin: 05/31/16 06:45 Dose: 1 amp Amlodipine Besylate (Norvasc -) 5 mg PO DAILY [facility] Last Admin: 05/31/16 10:02 Dose: 5 mg Furosemide (Lasix -) 40 mg PO DAILY [facility] Heparin Sodium (Porcine) (Heparin -) 1,000 unit IVPUSH PRN PRN PRN Reason: Heparin Heparin Sodium (Porcine) (Heparin -) 5,000 unit IVPUSH PRN PRN PRN Reason: Heparin Last Admin: 05/29/16 22:26 Dose: 5,000 unit Heparin Sodium (Porcine) 25, (000 unit/ Sodium Chloride) 500 mls @ 20 mls/hr IV TITR TAWANNA; 1,000 UNIT/HR PRN Reason: Protocol Last Admin: 05/31/16 07:19 Dose: 18 mls/hr Methylprednisolone Sodium Succinate (Solu-Medrol -) 60 mg IVPB Q6H-IV [facility]WANNA Last Admin: 05/31/16 10:02 Dose: 60 mg Pantoprazole Sodium (Protonix -) 40 mg PO DAILY [facility] Last Admin: 05/31/16 10:02 Dose: 40 mg A/P LLE DVT h/o GI Bleed COPD LV Diastolic Dysfunction Pulmonary HTN HTN - continue anticoagulation - monitor H/H, signs of bleeding - will need IVC filter if unable to anticoagulate - continue medrol at current dose for today, if continues to improve, can decrease in AM - inhaled bronchodilators - O2 to keep SpO2 >90% - outpt PFTs
--- NOTE | 2016-05-31 16:04 | PN ---
Progress Note (short form) - Note Progress Note: Vascular Surgery Pt seen and examined. Will place IVC filter due to extensive GI bleed history. NPO past midnight. Salvador Barbosa DO
[2016-06-01] MEDS: ALBUTEROL SO4 2.5/IPRATROPIUM 0.5 INH SOL 3 ML VIAL.NEB. NEB SCH ×4 (00:06→17:42)
--- NOTE | 2016-06-01 00:22 | PN ---
Progress Note (short form) - Note Progress Note: patient in bed still dyspneic but appears more comfortable states breathing "better" Vital Signs Period Temp Pulse Resp BP Sys/Calvillo Pulse Ox Last 24 Hr 97.4 F-98.6 F 81-92 18-20 131-152/63-88 95 neck flat heart reg S1/S2 Lungs grossly clear occasional exp wheezing labd soft non tender ext no sig edema, + swelling left leg CBC, BMP 05/31/16 07:00 05/31/16 07:00 Active Medications Albuterol/Ipratropium (Duoneb -) 1 amp NEB QIDR [facility] Last Admin: 06/01/16 00:06 Dose: 1 amp Amlodipine Besylate (Norvasc -) 5 mg PO DAILY [facility] Last Admin: 05/31/16 10:02 Dose: 5 mg Furosemide (Lasix -) 40 mg PO DAILY [facility] Heparin Sodium (Porcine) (Heparin -) 1,000 unit IVPUSH PRN PRN PRN Reason: Heparin Stop: 06/01/16 05:30 Heparin Sodium (Porcine) (Heparin -) 5,000 unit IVPUSH PRN PRN PRN Reason: Heparin Stop: 06/01/16 05:30 Last Admin: 05/29/16 22:26 Dose: 5,000 unit Heparin Sodium (Porcine) 25, (000 unit/ Sodium Chloride) 500 mls @ 20 mls/hr IV TITR TAWANNA; 1,000 UNIT/HR PRN Reason: Protocol Stop: 06/01/16 05:30 Last Admin: 05/31/16 07:19 Dose: 18 mls/hr Methylprednisolone Sodium Succinate (Solu-Medrol -) 60 mg IVPB Q6H-IV [facility] Last Admin: 05/31/16 21:27 Dose: 60 mg Pantoprazole Sodium (Protonix -) 40 mg PO DAILY [facility] Last Admin: 05/31/16 10:02 Dose: 40 mg cta chest: no pe, no aortic diss/aneurysm, no chf/infiltrates ecg 05/29/16: sr, nl intervals, no ischemic changes echo 05/2016: mild lve, nl lvef, mild lae, mod mr, mild-mod tr, rvsp 30-40, RV not mentioned in report Assessment/Plan ASSMT / plan 81 y/o with hx of COPD / RA / HTN / osteoporosis/ HLD/ diverticular bleed 05/2015 / admitted with +DVT and Acute exacerbation of COPD # DVT duplex 05/29/16 + dvt / CTA neg for PE Hx obtained from [facility] 06/2015 patient was treated for extensive and recurrent diverticular bleed. Currently on A/c - observe for bleeding benefit of IVC filter discussed with patient in view of high risk of re bleed - she agrees will discuss with Vascular # Dyspnea COPD no hx of smoking but admits many yrs of 2nd hand smoking progressive over many "months to years" off BBlocker Echcardiogram ( as above) # Gi Bleed by hx hx of recurrent diverticular bleed PPi for gi prophylaxis follow H/H will type and screen # HTN on amlodipine will keep of BBlocker # electrolyte abn replace K / Mag as needed Problem List - Problems (1) Dyspnea Code(s): R06.00 - DYSPNEA, UNSPECIFIED (2) Deep venous thrombosis of left popliteal vein Code(s): I82.432 - ACUTE EMBOLISM AND THROMBOSIS OF LEFT POPLITEAL VEIN Qualifiers: Chronicity: acute Qualified Code(s): I82.432 - Acute embolism and thrombosis of left popliteal vein (3) Dyspnea on exertion Code(s): R06.09 - OTHER FORMS OF DYSPNEA (4) HTN (hypertension) Code(s): I10 - ESSENTIAL (PRIMARY) HYPERTENSION
[2016-06-01] MEDS: methylPREDNISolone NA SUCC 125 MG/2 ML VIAL IVPB SCH ×2 (02:47→09:22)
[2016-06-01] MEDS ORDERED: LIDOCAINE HCL 1%, 10 MG/ML (20ML VIAL) ONE (07:06)
[2016-06-01] MEDS ORDERED: HEPARIN NA (PORCINE) 5,000 UNITS/ML 1ML VIAL ONE ×2 (07:06→12:59)
[2016-06-01 07:45] LABS: BASOPHIL 0.2 % (0-2.0); MCH 23.9 pg (25.7-33.7); MEAN CELL VOLUME 77.3 fl (80-96); NEUTROPHILS 94.2 % (42.8-82.8); PLATELET COUNT 136 K/MM3 (134-434); RDW 21.6 % (11.6-15.6); WHITE BLOOD COUNT 5.7 K/mm3 (4.0-10.0)
[2016-06-01 08:15] LABS: CALCIUM 8.2 mg/dL (8.5-10.1); CREATININE 1.1 mg/dL (0.55-1.02); MAGNESIUM 2.2 mg/dL (1.8-2.4)
[2016-06-01] MEDS: PANTOPRAZOLE 40 MG TABLET (FP) PO SCH (09:22)
[2016-06-01] MEDS: amLODIPine BESYLATE 5 MG TABLET (FP) PO SCH (09:22)
[2016-06-01 09:40] LABS: BASOPHIL 0.1 % (0-2.0); MCHC 30.8 g/dl (32.0-36.0); MEAN CELL VOLUME 77.7 fl (80-96); MEAN PLT VOLUME 7.5 fl (7.5-11.1); NEUTROPHILS 94.4 % (42.8-82.8); PLATELET COUNT 124 K/MM3 (134-434); RDW 21.2 % (11.6-15.6); WHITE BLOOD COUNT 5.4 K/mm3 (4.0-10.0)
[2016-06-01] MEDS ORDERED: FUROSEMIDE 40 MG TABLET (FP) PO SCH (10:00)
--- NOTE | 2016-06-01 12:47 | PN ---
Progress Note (short form) - Note Progress Note: PULMONARY APPEARS STABLE NOT WEARING 02 VSS ANICTERIC DISTANT/NO WHEEZE S1S2 BS+ MILD B/L LOWER EXT EDEMA LABS/MEDS/NOTES/IMAGING REVIEWED LEFT LOWER EXT DVT IVC FILTER PLANNED H/O GI BLEED HTN/CP COPD AGRRE WITH IVC FILTER WILL CHANGE MEDROL TO PREDNISONE BRONCHODILATORS NEEDED Poonam TITUS MD
[2016-06-01] MEDS ORDERED: predniSONE 20 MG TABLET (UD) PO SCH (13:15)
[2016-06-01] MEDS ORDERED: LIDOCAINE HCL 1%, 10 MG/ML (20ML VIAL) IJ ONE (14:56)
[2016-06-01] MEDS ORDERED: MIDAZOLAM HCL 2 MG/2 ML SINGLE DOSE VIAL ONE ×2 (14:58)
[2016-06-01] MEDS ORDERED: ceFAZolin SODIUM 1 GM VIAL IVPB ONE (15:05)
[2016-06-01] MEDS ORDERED: ceFAZolin SODIUM 1 GM VIAL ONE (15:07)
--- NOTE | 2016-06-01 15:34 | OP ---
Operative Note - Note: Operative Date: 06/01/16 Pre-Operative Diagnosis: DVT, GI bleed Operation: insertion of IVC filter, venogram. Post-Operative Diagnosis: Same as Pre-op Surgeon: Salvador Barbosa Anesthesia: Fractional Estimated Blood Loss (mls): 10 Operative Report Dictated: Yes
[2016-06-01] MEDS ORDERED: PROMETHAZINE HCL 25 MG/1 ML VIAL IVPUSH PRN (15:37)
[2016-06-01] MEDS ORDERED: oxyCODONE HCL 5 MG TABLET PO PRN (15:37)
[2016-06-01] MEDS ORDERED: ONDANSETRON 4 MG/2 ML VIAL IVPUSH PRN (15:37)
[2016-06-01] MEDS ORDERED: POTASSIUM CHLORIDE 20 MEQ PREMIX IVPB 100 ML IVPB ONE (16:10)
[2016-06-01] MEDS ORDERED: HEPARIN - 25,000 UNIT in SODIUM CHLORIDE 495 ML IV SCH (23:45)
[2016-06-01] MEDS ORDERED: HEPARIN NA (PORCINE) 5,000 UNITS/ML 1ML VIAL IVPUSH PRN (23:56)
[2016-06-02] MEDS: ALBUTEROL SO4 2.5/IPRATROPIUM 0.5 INH SOL 3 ML VIAL.NEB. NEB SCH ×2 (00:05→07:09)
[2016-06-02 07:47] LABS: MCH 24.7 pg (25.7-33.7); MCHC 32.2 g/dl (32.0-36.0); MEAN CELL VOLUME 76.7 fl (80-96); MEAN PLT VOLUME 7.9 fl (7.5-11.1); PLATELET COUNT 123 K/MM3 (134-434); WHITE BLOOD COUNT 4.8 K/mm3 (4.0-10.0)
--- NOTE | 2016-06-02 08:57 | PN ---
Progress Note (short form) - Note Progress Note: PULMONARY s/p IVC filter placement. Reports some dyspnea on exertion. Uses inhalers at home but does not remember which ones. Last Vital Signs Temp Pulse Resp BP Pulse Ox 97.7 F 80 18 137/80 97 06/01/16 18:12 06/02/16 06:16 06/01/16 21:00 06/02/16 06:16 06/01/16 21:00 Gen: mildly tachypneic with speaking Heart: RRR Lung: distant breath sounds Abd: soft, nontender Ext: LLE edema CBC, BMP 06/02/16 07:05 06/01/16 06:30 Active Medications Albuterol/Ipratropium (Duoneb -) 1 amp NEB QIDR [facility] Last Admin: 06/02/16 07:09 Dose: Not Given Amlodipine Besylate (Norvasc -) 5 mg PO DAILY [facility] Fentanyl (Sublimaze Injection -) 25 mcg IVPUSH [id number] PRN PRN Reason: PAIN Stop: 06/04/16 15:38 Furosemide (Lasix -) 40 mg PO DAILY [facility] Heparin Sodium (Porcine) (Heparin -) 5,000 unit IVPUSH PRN PRN Heparin Sodium (Porcine) (Heparin -) 1,000 unit IVPUSH PRN PRN Heparin Sodium (Porcine) 25, (000 unit/ Sodium Chloride) 500 mls @ 18 mls/hr IV TITR TAWANNA PRN Reason: Protocol Oxycodone HCl (Roxicodone -) 5 mg PO Q4H PRN PRN Reason: MILD PAIN Stop: 06/02/16 15:36 Pantoprazole Sodium (Protonix -) 40 mg PO DAILY [facility] Prednisone (Deltasone -) 20 mg PO DAILY [facility] A/P LLE DVT h/o GI Bleed COPD LV Diastolic Dysfunction Pulmonary HTN HTN - continue anticoagulation - monitor H/H, signs of bleeding - will need IVC filter if unable to anticoagulate - prednisone taper - inhaled bronchodilators - will start LABA/ICS and LAMA - O2 to keep SpO2 >90% - outpt PFTs
--- NOTE | 2016-06-02 09:24 | PN ---
Progress Note (short form) - Note Progress Note: ANESTHESIA POST-OP CHECK 81F s/p IVC filter placement, POD #1. No acute complaints, tolerating PO, denies N/V. Ambulating, Pain 0/10 and tolerable. Vital Signs Temperature 97.7 F 06/01/16 18:12 Pulse Rate 80 06/02/16 06:16 Respiratory Rate 18 06/01/16 21:00 Blood Pressure 137/80 06/02/16 06:16 O2 Sat by Pulse Oximetry (%) 97 06/01/16 21:00 Active Medications Albuterol Sulfate (Ventolin 0.083% Nebulizer Soln -) 1 amp NEB QIDR [facility] Amlodipine Besylate (Norvasc -) 5 mg PO DAILY [facility] Budesonide/Formoterol Fumarate (Symbicort 160/4.5mcg -) 2 puff IH BID [facility] Fentanyl (Sublimaze Injection -) 25 mcg IVPUSH [id number] PRN PRN Reason: PAIN Stop: 06/04/16 15:38 Furosemide (Lasix -) 40 mg PO DAILY [facility] Heparin Sodium (Porcine) (Heparin -) 5,000 unit IVPUSH PRN PRN Heparin Sodium (Porcine) (Heparin -) 1,000 unit IVPUSH PRN PRN Heparin Sodium (Porcine) 25, (000 unit/ Sodium Chloride) 500 mls @ 18 mls/hr IV TITR TAWANNA PRN Reason: Protocol Oxycodone HCl (Roxicodone -) 5 mg PO Q4H PRN PRN Reason: MILD PAIN Stop: 06/02/16 15:36 Pantoprazole Sodium (Protonix -) 40 mg PO DAILY [facility] Prednisone (Deltasone -) 20 mg PO DAILY [facility] Tiotropium [place] (Spiriva -) 18 puff IH DAILY [facility] Gen: awake, alert No apparent anesthesia complications. Pain well controlled. Continue management as per primary team.
[2016-06-02] MEDS: PANTOPRAZOLE 40 MG TABLET (FP) PO SCH (09:46)
[2016-06-02] MEDS: FUROSEMIDE 40 MG TABLET (FP) PO SCH (09:46)
[2016-06-02] MEDS: predniSONE 20 MG TABLET (UD) PO SCH (09:46)
[2016-06-02] MEDS: amLODIPine BESYLATE 5 MG TABLET (FP) PO SCH (09:46)
[2016-06-02] MEDS: TIOTROPIUM BROMIDE 18 MCG/INH (DEVICE W/ 5 CAPSULES) IH SCH (10:38)
[2016-06-02] MEDS: BUDESONIDE/FORMETEROL FUMARATE 160/4.5 mcg INHALER IH SCH ×2 (10:41→21:31)
[2016-06-02] MEDS ORDERED: HEPARIN INFUSION - 500 ML IVPB ONE (10:50)
[2016-06-02] MEDS ORDERED: PT OWN MED DRAWER 7, Y5N ONE ×2 (11:29→21:17)
[2016-06-02] MEDS: HEPARIN - 25,000 UNIT in SODIUM CHLORIDE 495 ML IV SCH ×2 (11:30→18:17)
[2016-06-02] MEDS: ALBUTEROL SO4 0.083% IH SOL 2.5 MG/3 ML VIAL.NEB. NEB SCH ×2 (12:01→18:05)
--- NOTE | 2016-06-02 12:28 | PN ---
Progress Note (short form) - Note Progress Note: seen and examined in room prior to procedure Charline ( HCP ) in room all questions asked and answered discussed need for IVC instead of parts counterman or life long A/c both understand and agree continues with pain to left LE, also discussed longer term plan for management currently NPO Vital Signs Period Temp Pulse Resp BP Sys/Calvillo Pulse Ox Last 24 Hr 97.7 F-97.8 F 71-80 14-18 126-151/56-80 95-98 neck supple heart reg S1/S2 lungs improved BS no wheezing / rhonchi abd soft no tender ext pain to left LE + calf tenderness to LLE CBC, BMP 06/01/16 06:30 S/P transfusion 1 Unit ASSMT / plan 81 y/o with hx of COPD / RA / HTN / osteoporosis/ HLD/ diverticular bleed 05/2015 / admitted with +DVT and Acute exacerbation of COPD # DVT duplex 05/29/16 + dvt / CTA neg for PE Hx obtained from [facility] 06/2015 patient was treated for extensive and recurrent diverticular bleed. Currently on A/c - observe for bleeding benefit of IVC filter discussed with patient in view of high risk of re bleed - she agrees scheduled for IVC today # Dyspnea COPD no hx of smoking but admits many yrs of 2nd hand smoking progressive over many "months to years" off BBlocker Echcardiogram ( as above) # Gi Bleed by hx hx of recurrent diverticular bleed PPi for gi prophylaxis follow H/H transfused # HTN on amlodipine will keep of BBlocker # electrolyte abn replace K / Mag as needed Problem List - Problems (1) Dyspnea Code(s): R06.00 - DYSPNEA, UNSPECIFIED (2) Deep venous thrombosis of left popliteal vein Code(s): I82.432 - ACUTE EMBOLISM AND THROMBOSIS OF LEFT POPLITEAL VEIN Qualifiers: Chronicity: acute Qualified Code(s): I82.432 - Acute embolism and thrombosis of left popliteal vein (3) Dyspnea on exertion Code(s): R06.09 - OTHER FORMS OF DYSPNEA (4) HTN (hypertension) Code(s): I10 - ESSENTIAL (PRIMARY) HYPERTENSION
--- NOTE | 2016-06-02 12:42 | PN ---
Progress Note (short form) - Note Progress Note: s/p IVC filter tolerated procedure well / has ambulated today with out pain / states only minimal discomfort to left LE remains on [place] drip with no evidence of active bleeding Vital Signs Period Temp Pulse Resp BP Sys/Calvillo Pulse Ox Last 24 Hr 97.7 F-97.8 F 71-80 14-18 126-151/56-80 95-98 neck supple - jvd heart reg Lung improved BS - no wheezing / rhonchi abd soft nontender ext no calf or ankle tenderness on exam ( LLE) + pulses / warm to touch CBC, BMP 06/02/16 07:05 06/01/16 06:30 Active Medications Albuterol Sulfate (Ventolin 0.083% Nebulizer Soln -) 1 amp NEB QIDR [facility] Last Admin: 06/02/16 12:01 Dose: 1 amp Amlodipine Besylate (Norvasc -) 5 mg PO DAILY [facility] Last Admin: 06/02/16 09:46 Dose: 5 mg Budesonide/Formoterol Fumarate (Symbicort 160/4.5mcg -) 2 puff IH BID [facility] Last Admin: 06/02/16 10:41 Dose: 2 puff Fentanyl (Sublimaze Injection -) 25 mcg IVPUSH [id number] PRN PRN Reason: PAIN Stop: 06/04/16 15:38 Furosemide (Lasix -) 40 mg PO DAILY [facility] Last Admin: 06/02/16 09:46 Dose: 40 mg Heparin Sodium (Porcine) (Heparin -) 5,000 unit IVPUSH PRN PRN Heparin Sodium (Porcine) (Heparin -) 1,000 unit IVPUSH PRN PRN Heparin Sodium (Porcine) 25, (000 unit/ Sodium Chloride) 500 mls @ 18 mls/hr IV TITR TAWANNA PRN Reason: Protocol Oxycodone HCl (Roxicodone -) 5 mg PO Q4H PRN PRN Reason: MILD PAIN Stop: 06/02/16 15:36 Pantoprazole Sodium (Protonix -) 40 mg PO DAILY [facility] Last Admin: 06/02/16 09:46 Dose: 40 mg Prednisone (Deltasone -) 20 mg PO DAILY [facility] Last Admin: 06/02/16 09:46 Dose: 20 mg Tiotropium [place] (Spiriva -) 1 puff IH DAILY [facility] Last Admin: 06/02/16 10:38 Dose: 1 inh ASSMT / plan 81 y/o with hx of COPD / RA / HTN / osteoporosis/ HLD/ diverticular bleed 05/2015 / admitted with +DVT and Acute exacerbation of COPD # DVT S/P IVC filter 06/01/16 duplex 05/29/16 + dvt / CTA neg for PE Hx obtained from [facility] 06/2015 patient was treated for extensive and recurrent diverticular bleed. Currently on A/c - observe for bleeding # Dyspnea COPD improved / taper steroids / started LABA/ICS and LAMA no hx of smoking but admits many yrs of 2nd hand smoking progressive over many "months to years" off BBlocker Echcardiogram ( as above) # Gi Bleed by hx hx of recurrent diverticular bleed PPi for gi prophylaxis follow H/H type and screened s/p transfusion ( 1 unit pRBC) # HTN on amlodipine will keep of BBlocker # electrolyte abn replace as needed Problem List - Problems (1) Dyspnea Code(s): R06.00 - DYSPNEA, UNSPECIFIED (2) Deep venous thrombosis of left popliteal vein Code(s): I82.432 - ACUTE EMBOLISM AND THROMBOSIS OF LEFT POPLITEAL VEIN Qualifiers: Chronicity: acute Qualified Code(s): I82.432 - Acute embolism and thrombosis of left popliteal vein (3) Dyspnea on exertion Code(s): R06.09 - OTHER FORMS OF DYSPNEA (4) HTN (hypertension) Code(s): I10 - ESSENTIAL (PRIMARY) HYPERTENSION
--- NOTE | 2016-06-02 15:27 | OP ---
DATE OF OPERATION: 06/01/2016 PROCEDURE: Insertion of IVC filter with venogram. PREOPERATIVE DIAGNOSIS: Deep venous thrombosis with gastrointestinal bleed. POSTOPERATIVE DIAGNOSIS: Deep venous thrombosis with gastrointestinal bleed. SURGEON: Salvador Fuentes DO ANESTHESIA: Fractional. BLOOD LOSS: 2 mL INDICATION: The patient is an 81-year-old female who had a left popliteal vein DVT on presentation. She has an extensive history of GI bleed at [facility]. Due to that, the medical team is very leery about her going on any anticoagulation whatsoever and she needs to have an IVC filter placed. The patient was consented for the procedure, understanding all of the risks, benefits and alternatives, and was then taken to the operating room. DESCRIPTION OF PROCEDURE: Once in the operating room, she was laid on the operating table in the supine position. The area of the right groin was prepped and draped in a sterile surgical manner. We then injected 10 cc of 1% lidocaine over the right common femoral vein. We then took our micropuncture needle and punctured the right common femoral vein. An curriculum director and a micropuncture sheath was inserted. A 0.035 floppy guidewire was then inserted into the inferior vena cava under fluoroscopy. We then inserted our IVC filter sheath up to L3 under fluoroscopy. We then, by hand injection, shot a venacavogram showing that the IVC was patent, and the renal veins came off at L1, and those were marked on the screen. We then loaded the filter into the sheath, and the filter was then deployed between L2 and L3. Completion of the venacavogram was now done showing that the filter was in place. There was no extravasation of contrast. There was no migration of the filter and the bilateral renal veins were patent. At this point, we removed the sheath. Pressure was held on the right groin for 5 minutes until there was no bleeding. The area was then dried and Dermabond was placed. The patient tolerated the procedure with no complication. She was transferred to the PACU in stable condition. SALVADOR FUENTES DO TOOTH CUTTER SPUR/[id number]
[2016-06-02] MEDS: HEPARIN NA (PORCINE) 5,000 UNITS/ML 1ML VIAL IVPUSH PRN (18:14)
[2016-06-03] MEDS: ALBUTEROL SO4 0.083% IH SOL 2.5 MG/3 ML VIAL.NEB. NEB SCH ×4 (00:14→17:44)
[2016-06-03] MEDS: HEPARIN - 25,000 UNIT in SODIUM CHLORIDE 495 ML IV SCH ×3 (02:02→17:27)
[2016-06-03] MEDS: HEPARIN NA (PORCINE) 5,000 UNITS/ML 1ML VIAL IVPUSH PRN (02:03)
[2016-06-03 08:52] LABS: BASOPHIL 0.6 % (0-2.0); EOSINOPHIL 0.8 % (0-4.5); MCH 24.5 pg (25.7-33.7); MCHC 31.9 g/dl (32.0-36.0); MEAN CELL VOLUME 77.1 fl (80-96); MEAN PLT VOLUME 7.9 fl (7.5-11.1); NEUTROPHILS 69.9 % (42.8-82.8); PLATELET COUNT 142 K/MM3 (134-434); RDW 20.3 % (11.6-15.6); WHITE BLOOD COUNT 3.7 K/mm3 (4.0-10.0)
[2016-06-03] MEDS ORDERED: PT OWN MED DRAWER 7, Y5N ONE ×2 (09:13→21:59)
[2016-06-03] MEDS: FUROSEMIDE 40 MG TABLET (FP) PO SCH (09:17)
[2016-06-03] MEDS: amLODIPine BESYLATE 5 MG TABLET (FP) PO SCH (09:17)
[2016-06-03] MEDS: predniSONE 20 MG TABLET (UD) PO SCH (09:17)
[2016-06-03] MEDS: TIOTROPIUM BROMIDE 18 MCG/INH (DEVICE W/ 5 CAPSULES) IH SCH (09:18)
[2016-06-03] MEDS: PANTOPRAZOLE 40 MG TABLET (FP) PO SCH (09:18)
[2016-06-03] MEDS: BUDESONIDE/FORMETEROL FUMARATE 160/4.5 mcg INHALER IH SCH ×2 (09:18→22:01)
[2016-06-03 10:11] LABS: CALCIUM 7.6 mg/dL (8.5-10.1); MAGNESIUM 1.8 mg/dL (1.8-2.4)
--- NOTE | 2016-06-03 10:33 | PN ---
Progress Note (short form) - Note Progress Note: PULMONARY Breathing improved today. Denies cough or wheezing. Last Vital Signs Temp Pulse Resp BP Pulse Ox 97.5 F L 68 20 143/85 96 06/03/16 05:30 06/03/16 05:30 06/03/16 05:30 06/03/16 05:30 06/02/16 21:00 Gen: mildly tachypneic with speaking Heart: RRR Lung: distant breath sounds Abd: soft, nontender Ext: LLE edema CBC, BMP 06/03/16 07:50 06/03/16 07:50 Active Medications Albuterol Sulfate (Ventolin 0.083% Nebulizer Soln -) 1 amp NEB QIDR [facility] Last Admin: 06/03/16 08:02 Dose: Not Given Amlodipine Besylate (Norvasc -) 5 mg PO DAILY [facility] Last Admin: 06/03/16 09:17 Dose: 5 mg Budesonide/Formoterol Fumarate (Symbicort 160/4.5mcg -) 2 puff IH BID [facility] Last Admin: 06/03/16 09:18 Dose: 2 puff Fentanyl (Sublimaze Injection -) 25 mcg IVPUSH [id number] PRN PRN Reason: PAIN Stop: 06/04/16 15:38 Furosemide (Lasix -) 40 mg PO DAILY [facility] Last Admin: 06/03/16 09:17 Dose: 40 mg Heparin Sodium (Porcine) (Heparin -) 5,000 unit IVPUSH PRN PRN Heparin Sodium (Porcine) (Heparin -) 1,000 unit IVPUSH PRN PRN Last Admin: 06/03/16 02:03 Dose: 1,000 unit Heparin Sodium (Porcine) 25, (000 unit/ Sodium Chloride) 500 mls @ 18 mls/hr IV TITR [facility]WANNA PRN Reason: Protocol Pantoprazole Sodium (Protonix -) 40 mg PO DAILY [facility] Last Admin: 06/03/16 09:18 Dose: 40 mg Prednisone (Deltasone -) 20 mg PO DAILY [facility] Last Admin: 06/03/16 09:17 Dose: 20 mg Tiotropium [place] (Spiriva -) 1 puff IH DAILY [facility] Last Admin: 06/03/16 09:18 Dose: 1 inh A/P LLE DVT h/o GI Bleed COPD LV Diastolic Dysfunction Pulmonary HTN HTN - s/p IVC filter placement - replete K - monitor H/H, signs of bleeding - prednisone taper - inhaled bronchodilators - continue spiriva, symbicort - O2 to keep SpO2 >90% - outpt PFTs
[2016-06-03] MEDS ORDERED: POTASSIUM CHLORIDE TABS 20 MEQ TABLET.ER (FP) PO ONE ×2 (12:47→15:00)
--- NOTE | 2016-06-03 12:53 | PN ---
Progress Note (short form) - Note Progress Note: in bed comfortable + dyspneic with conversation reports better over all Vital Signs Period Temp Pulse Resp BP Sys/Calvillo Pulse Ox Last 24 Hr 97.5 F-98.4 F 68-86 20-20 132-144/64-85 96 neck supple -JVD heart reg S1/S2 lungs decreased BS no wheezing / no rhonchi abd soft non tender ext no calf tenderness + pulses/ no edema / no tenderness CBC, BMP 06/03/16 07:50 06/03/16 07:50 Active Medications Albuterol Sulfate (Ventolin 0.083% Nebulizer Soln -) 1 amp NEB QIDR [facility] Last Admin: 06/03/16 08:02 Dose: Not Given Amlodipine Besylate (Norvasc -) 5 mg PO DAILY [facility] Last Admin: 06/03/16 09:17 Dose: 5 mg Budesonide/Formoterol Fumarate (Symbicort 160/4.5mcg -) 2 puff IH BID [facility] Last Admin: 06/03/16 09:18 Dose: 2 puff Fentanyl (Sublimaze Injection -) 25 mcg IVPUSH [id number] PRN PRN Reason: PAIN Stop: 06/04/16 15:38 Furosemide (Lasix -) 40 mg PO DAILY [facility] Last Admin: 06/03/16 09:17 Dose: 40 mg Heparin Sodium (Porcine) (Heparin -) 5,000 unit IVPUSH PRN PRN Heparin Sodium (Porcine) (Heparin -) 1,000 unit IVPUSH PRN PRN Last Admin: 06/03/16 02:03 Dose: 1,000 unit Heparin Sodium (Porcine) 25, (000 unit/ Sodium Chloride) 500 mls @ 18 mls/hr IV TITR [facility]NA PRN Reason: Protocol Pantoprazole Sodium (Protonix -) 40 mg PO DAILY [facility] Last Admin: 06/03/16 09:18 Dose: 40 mg Prednisone (Deltasone -) 20 mg PO DAILY [facility] Last Admin: 06/03/16 09:17 Dose: 20 mg Tiotropium [place] (Spiriva -) 1 puff IH DAILY [facility] Last Admin: 06/03/16 09:18 Dose: 1 inh ASSMT / plan 81 y/o with hx of COPD / RA / HTN / osteoporosis/ HLD/ diverticular bleed 05/2015 / admitted with +DVT and Acute exacerbation of COPD # DVT S/P IVC filter 06/01/16 duplex 05/29/16 + dvt / CTA neg for PE Hx obtained from [facility] 06/2015 patient was treated for extensive and recurrent diverticular bleed. Currently on A/c - observe for bleeding # Dyspnea COPD improved / taper steroids / started LABA/ICS and LAMA no hx of smoking but admits many yrs of 2nd hand smoking progressive over many "months to years" off BBlocker Echcardiogram ( as above) # Gi Bleed by hx hx of recurrent diverticular bleed PPi for gi prophylaxis follow H/H - has remained stable type and screened s/p transfusion ( 1 unit pRBC) # HTN on amlodipine will keep of BBlocker # electrolyte abn - hypokalemia replaced repeat in am Problem List - Problems (1) Dyspnea Code(s): R06.00 - DYSPNEA, UNSPECIFIED (2) Deep venous thrombosis of left popliteal vein Code(s): I82.432 - ACUTE EMBOLISM AND THROMBOSIS OF LEFT POPLITEAL VEIN Qualifiers: Chronicity: acute Qualified Code(s): I82.432 - Acute embolism and thrombosis of left popliteal vein (3) Dyspnea on exertion Code(s): R06.09 - OTHER FORMS OF DYSPNEA (4) HTN (hypertension) Code(s): I10 - ESSENTIAL (PRIMARY) HYPERTENSION
[2016-06-04] MEDS: ALBUTEROL SO4 0.083% IH SOL 2.5 MG/3 ML VIAL.NEB. NEB SCH ×4 (00:14→17:02)
[2016-06-04 07:30] LABS: BASOPHIL 0.2 % (0-2.0); EOSINOPHIL 2.6 % (0-4.5); MCH 24.5 pg (25.7-33.7); MEAN CELL VOLUME 76.6 fl (80-96); MEAN PLT VOLUME 7.7 fl (7.5-11.1); NEUTROPHILS 54.9 % (42.8-82.8); PLATELET COUNT 138 K/MM3 (134-434); RDW 20.2 % (11.6-15.6); WHITE BLOOD COUNT 2.9 K/mm3 (4.0-10.0)
[2016-06-04 08:38] LABS: CALCIUM 7.7 mg/dL (8.5-10.1); CREATININE 0.9 mg/dL (0.55-1.02)
[2016-06-04] MEDS ORDERED: PT OWN MED DRAWER 7, Y5N ONE ×3 (10:17→21:33)
[2016-06-04] MEDS: BUDESONIDE/FORMETEROL FUMARATE 160/4.5 mcg INHALER IH SCH ×2 (10:22→22:01)
[2016-06-04] MEDS: TIOTROPIUM BROMIDE 18 MCG/INH (DEVICE W/ 5 CAPSULES) IH SCH (10:22)
[2016-06-04] MEDS: predniSONE 20 MG TABLET (UD) PO SCH (10:22)
[2016-06-04] MEDS: PANTOPRAZOLE 40 MG TABLET (FP) PO SCH (10:22)
[2016-06-04] MEDS: amLODIPine BESYLATE 5 MG TABLET (FP) PO SCH (10:22)
[2016-06-04] MEDS: FUROSEMIDE 40 MG TABLET (FP) PO SCH (10:22)
--- NOTE | 2016-06-04 11:08 | PN ---
Physical Exam: SUBJECTIVE: Patient seen and examined Patient resting in bed comfortably, nad. No acute events. afebrile and hemodynamically stable. Feels well, almost at baseline. not using any supplemental O2. states that she gets sob while ambulating to bathroom. does not use supplemental O2 at home. Denies chest pain, palpitations, dizziness, hemoptysis, abd pain, neck pain, bleeding. + BM. OBJECTIVE: Vital Signs Period Temp Pulse Resp BP Sys/Calvillo Pulse Ox Last 24 Hr 97.7 F-98 F 80-95 20-20 127-150/80-96 96 GENERAL: The patient is awake, alert, and fully oriented, in no acute distress. HEAD: Normal with no signs of trauma. EYES: PERRL, extraocular movements intact, sclera anicteric, conjunctiva clear. ENT: moist mucous membranes. NECK: supple. LUNGS: bibasilar crackles, ronchi HEART: Regular rate and rhythm, S1, S2 ABDOMEN: Soft, nontender, nondistended, normoactive bowel sounds. R groin incision site clean, non bleeding, no hematoma, nontender EXTREMITIES: 2+ pulses, warm, well-perfused, NEUROLOGICAL: Cranial nerves II through XII grossly intact. Normal speech, gait not observed. PSYCH: Normal mood, normal affect. SKIN: Warm, dry Laboratory Results - last 24 hr 06/03/16 06/03/16 06/04/16 10:45 15:45 06:25 WBC RBC Hgb Hct MCV MCHC RDW Plt Count MPV Neutrophils % Lymphocytes % Monocytes % Eosinophils % Basophils % PTT (Actin FS) 70.4 H D 75.5 H 77.2 H Sodium Potassium Chloride Carbon Dioxide Anion Gap BUN Creatinine Random Glucose Calcium 06/04/16 06/04/16 06:25 06:25 WBC 2.9 L RBC 3.96 Hgb 9.7 L Hct 30.4 L MCV 76.6 L MCHC 32.0 RDW 20.2 H Plt Count 138 MPV 7.7 Neutrophils % 54.9 D Lymphocytes % 31.0 D Monocytes % 11.3 H Eosinophils % 2.6 D Basophils % 0.2 PTT (Actin FS) Sodium 145 Potassium 3.8 Chloride 106 Carbon Dioxide 33 H Anion Gap 6 L BUN 22 H Creatinine 0.9 Random Glucose 80 Calcium 7.7 L Active Medications Generic Name Dose Route Start Last Admin Trade Name Freq PRN Reason Stop Dose Admin Albuterol Sulfate 1 amp 06/02/16 12:00 06/04/16 06:30 Ventolin 0.083% Nebulizer Soln - NEB 1 amp QIDR TAWANNA Administration Amlodipine Besylate 5 mg 06/02/16 10:00 06/04/16 10:22 Norvasc - PO 5 mg DAILY TAWANNA Administration Budesonide/Formoterol Fumarate 2 puff 06/02/16 10:00 06/04/16 10:22 Symbicort 160/4.5mcg - IH 2 puff BID TAWANNA Administration Fentanyl 25 mcg 06/01/16 15:37 Sublimaze Injection - IVPUSH 06/04/16 15:38 [id number] PRN PAIN Furosemide 40 mg 06/02/16 10:00 06/04/16 10:22 Lasix - PO 40 mg DAILY [facility]NA Administration Heparin Sodium (Porcine) 5,000 unit 06/01/16 23:56 Heparin - IVPUSH PRN PRN Heparin Sodium (Porcine) 1,000 unit 06/01/16 23:56 06/03/16 02:03 Heparin - IVPUSH 1,000 unit PRN PRN Administration Heparin Sodium (Porcine) 25, 500 mls @ 18 mls/hr 06/01/16 23:45 000 unit/ Sodium Chloride IV TITR [facility] Protocol Pantoprazole Sodium 40 mg 06/02/16 10:00 06/04/16 10:22 Protonix - PO 40 mg DAILY TAWANNA Administration Prednisone 20 mg 06/02/16 10:00 06/04/16 10:22 Deltasone - PO 20 mg DAILY [facility]NA Administration Tiotropium [place] 1 puff 06/02/16 10:00 06/04/16 10:22 Spiriva - IH 1 inh DAILY TAWANNA Administration ASSESSMENT/PLAN: LLE DVT -s/p IVC Filter placement -on a/c hep full dose -CTA chest no PE -CXR no acute process Acute on chronic COPD exacerbation -prednisone taper 20 mg D -spiriva, symbicort, albuterol -incentive spirometry -pre and post exercise O2 -PT -stable for xfer to Rehab from Pulm perspective Pulm HTN -mild, no acute manifestations HFPEF -stable HTN -controlled HX GIB -monitor for bleeding Problem List - Problems (1) COPD (chronic obstructive pulmonary disease) Code(s): J44.9 - CHRONIC OBSTRUCTIVE PULMONARY DISEASE, UNSPECIFIED (2) Chest pain Code(s): R07.9 - CHEST PAIN, UNSPECIFIED (3) Deep venous thrombosis of left popliteal vein Code(s): I82.432 - ACUTE EMBOLISM AND THROMBOSIS OF LEFT POPLITEAL VEIN Qualifiers: Chronicity: acute Qualified Code(s): I82.432 - Acute embolism and thrombosis of left popliteal vein (4) Dyspnea Code(s): R06.00 - DYSPNEA, UNSPECIFIED (5) Dyspnea on exertion Code(s): R06.09 - OTHER FORMS OF DYSPNEA (6) HTN (hypertension) Code(s): I10 - ESSENTIAL (PRIMARY) HYPERTENSION Visit type - Emergency Visit Emergency Visit: Yes ED Registration Date: 05/29/16 Care time: The patient presented to the Emergency Department on the above date and was hospitalized for further evaluation of their emergent condition. - New Patient This patient is new to me today: Yes Date on this admission: 06/04/16 - Critical Care Critical Care patient: No - Discharge Referral Referred to [facility] No
--- NOTE | 2016-06-04 12:29 | PN ---
Progress Note, Physician Chief Complaint: sob, DVT History of Present Illness: breathing better; leg swelling nearly resolved; no cp, palpit - Current Medication List Current Medications: Active Medications Albuterol Sulfate (Ventolin 0.083% Nebulizer Soln -) 1 amp NEB QIDR [facility] Last Admin: 06/04/16 11:30 Dose: 1 amp Amlodipine Besylate (Norvasc -) 5 mg PO DAILY [facility] Last Admin: 06/04/16 10:22 Dose: 5 mg Budesonide/Formoterol Fumarate (Symbicort 160/4.5mcg -) 2 puff IH BID [facility] Last Admin: 06/04/16 10:22 Dose: 2 puff Fentanyl (Sublimaze Injection -) 25 mcg IVPUSH [id number] PRN PRN Reason: PAIN Stop: 06/04/16 15:38 Furosemide (Lasix -) 40 mg PO DAILY [facility] Last Admin: 06/04/16 10:22 Dose: 40 mg Heparin Sodium (Porcine) (Heparin -) 5,000 unit IVPUSH PRN PRN Heparin Sodium (Porcine) (Heparin -) 1,000 unit IVPUSH PRN PRN Last Admin: 06/03/16 02:03 Dose: 1,000 unit Heparin Sodium (Porcine) 25, (000 unit/ Sodium Chloride) 500 mls @ 18 mls/hr IV TITR TAWANNA PRN Reason: Protocol Pantoprazole Sodium (Protonix -) 40 mg PO DAILY [facility] Last Admin: 06/04/16 10:22 Dose: 40 mg Prednisone (Deltasone -) 20 mg PO DAILY [facility] Last Admin: 06/04/16 10:22 Dose: 20 mg Tiotropium [place] (Spiriva -) 1 puff IH DAILY [facility] Last Admin: 06/04/16 10:22 Dose: 1 inh - Objective Vital Signs: Vital Signs Temperature 97.4 F L 06/04/16 09:00 Pulse Rate 71 06/04/16 09:00 Respiratory Rate 20 06/04/16 09:00 Blood Pressure 146/78 06/04/16 09:00 O2 Sat by Pulse Oximetry (%) 96 06/04/16 09:00 Constitutional: Yes: Well Nourished, No Distress, Calm Cardiovascular: Yes: Regular Rate and Rhythm, S1, S2. No: JVD, Gallop, Murmur Respiratory: Yes: Regular, Rales (bases). No: Accessory Muscle Use, Wheezes Extremities: No: Cold Edema: Yes (trace ankles) Neurological: Yes: Alert, Oriented Psychiatric: No: Agitated Labs: CBC, BMP 06/04/16 06:25 06/04/16 06:25 INR, PTT INR 1.02 (0.82-1.09) 05/30/16 07:50 Assessment/Plan echo 05/2016: mild lve, nl lvef, mild lae, mod mr, mild-mod tr, rvsp 30-40, RV not mentioned in report a/p: 81 f hx possible copd, htn, le edema/venous insuff, here with dvt. dvt, chronic LE venous ins'y/swelling: -outpt le duplex 05/29/16 showed left popliteal dvt -cta chest shows no PE -s/p IVC filter -currently tolerating UFH with close monitoring for GIB, however concern over the fact that she had prior multiple massive rectal bleeds in [facility] 05/24 ( including sudden onset after being stable for a time in hospital), with suspected diverticular origin though multiple scopes and bleeding scan were not able to find an active bleeding source -she was recently hospitalized and hence has explanation for "provoked" DVT-- could consider hypercoagulable workup, but unless there is strong suspicion of hypercoagulability here, the risks of sudden, life-threatening LGIB seem higher than benefits of AC now that she has IVC filter -holding CCB, as below -? will need restart po lasix later (on 40 qd x yrs at home per pt) sob, likely copd: -chronic symptom for patient, ? worse of late but even that change has been subacute to chronic per history -cta chest here w/o pe and no signs chf or infiltrates -echo here unremarkable -inhalers/steroids started, per pulm and dr davila -bb held htn: -bb stopped here in case was worsening copd -agree with holding amlodipine given chronic severe bilat pretib edema--? med is exacerbating -BPs stable/controlled off meds currently--observe -would add ARB (if no prior intolerance) if bp rises in future cp: -atypical, chronic symptom for patient, no acute changes--positional and pleuritic component described--? sec to muscle work of breathing from chronic sob/copd -will consider outpt stress test later, depending on sx course (once copd sx's improved)
--- NOTE | 2016-06-04 16:18 | PN ---
Progress Note (short form) - Note Progress Note: in bed comfortable was evaluated by PT earlier breathing remains difficult but improved Vital Signs Period Temp Pulse Resp BP Sys/Calvillo Pulse Ox Last 24 Hr 97.4 F-98 F 71-123 20-20 130-150/77-96 94-96 neck supple / -jvd heart regular lungs clear bilat decreased bs abd soft ext less edema / swelling / less tenderness CBC, BMP 06/04/16 06:25 06/04/16 06:25 Active Medications Albuterol Sulfate (Ventolin 0.083% Nebulizer Soln -) 1 amp NEB QIDR [facility] Last Admin: 06/04/16 11:30 Dose: 1 amp Amlodipine Besylate (Norvasc -) 5 mg PO DAILY [facility] Last Admin: 06/04/16 10:22 Dose: 5 mg Budesonide/Formoterol Fumarate (Symbicort 160/4.5mcg -) 2 puff IH BID [facility] Last Admin: 06/04/16 10:22 Dose: 2 puff Furosemide (Lasix -) 40 mg PO DAILY [facility] Last Admin: 06/04/16 10:22 Dose: 40 mg Heparin Sodium (Porcine) (Heparin -) 5,000 unit IVPUSH PRN PRN Heparin Sodium (Porcine) (Heparin -) 1,000 unit IVPUSH PRN PRN Last Admin: 06/03/16 02:03 Dose: 1,000 unit Heparin Sodium (Porcine) 25, (000 unit/ Sodium Chloride) 500 mls @ 18 mls/hr IV TITR TAWANNA PRN Reason: Protocol Pantoprazole Sodium (Protonix -) 40 mg PO DAILY [facility] Last Admin: 06/04/16 10:22 Dose: 40 mg Prednisone (Deltasone -) 20 mg PO DAILY [facility] Last Admin: 06/04/16 10:22 Dose: 20 mg Tiotropium [place] (Spiriva -) 1 puff IH DAILY [facility] Last Admin: 06/04/16 10:22 Dose: 1 inh ASSMT / plan 81 y/o with hx of COPD / RA / HTN / osteoporosis/ HLD/ diverticular bleed 05/2015 / admitted with +DVT and Acute exacerbation of COPD # DVT S/P IVC filter 06/01/16 duplex 05/29/16 + dvt / CTA neg for PE Hx obtained from [facility] 06/2015 patient was treated for extensive and recurrent diverticular bleed. Currently on A/c - observe for bleeding due to high risk of re-bleeding / previous extensive GIbleed was unprovoked/ will d/c a/c at time of d/c h/h has remained stable # Dyspnea COPD improved / taper steroids / started LABA/ICS and LAMA no hx of smoking but admits many yrs of 2nd hand smoking progressive over many "months to years" off BBlocker # Gi Bleed by hx hx of recurrent diverticular bleed PPi for gi prophylaxis follow H/H - has remained stable type and screened s/p transfusion ( 1 unit pRBC) # HTN on amlodipine will keep of BBlocker # electrolyte abn - hypokalemia replaced repeat in am Problem List - Problems (1) Dyspnea Code(s): R06.00 - DYSPNEA, UNSPECIFIED (2) Deep venous thrombosis of left popliteal vein Code(s): I82.432 - ACUTE EMBOLISM AND THROMBOSIS OF LEFT POPLITEAL VEIN Qualifiers: Chronicity: acute Qualified Code(s): I82.432 - Acute embolism and thrombosis of left popliteal vein (3) Dyspnea on exertion Code(s): R06.09 - OTHER FORMS OF DYSPNEA (4) HTN (hypertension) Code(s): I10 - ESSENTIAL (PRIMARY) HYPERTENSION
--- NOTE | 2016-06-04 17:49 | PN ---
Teaching Attending Note Name of Resident: Laura Woods ATTENDING PHYSICIAN STATEMENT I saw and evaluated the patient. I reviewed the resident's note and discussed the case with the resident. I agree with the resident's findings and plan as documented . PULMONARY FEELING BETTER,-SOB AT REST,LESS [place]. O2 SAT POST EXERCISE 94% IMP LLE DVT s/p IVC FILTER LIKELY COPD ? ASHD HTN PLAN IV HEPARIN INHALED BRONCHODILATORS PREDNISONE MONITOR PLT CT PFTS outpatient DR CALDERON Problem List - Problems (1) Deep venous thrombosis of left popliteal vein Code(s): I82.432 - ACUTE EMBOLISM AND THROMBOSIS OF LEFT POPLITEAL VEIN Qualifiers: Chronicity: acute Qualified Code(s): I82.432 - Acute embolism and thrombosis of left popliteal vein (2) Dyspnea Code(s): R06.00 - DYSPNEA, UNSPECIFIED (3) Dyspnea on exertion Code(s): R06.09 - OTHER FORMS OF DYSPNEA (4) HTN (hypertension) Code(s): I10 - ESSENTIAL (PRIMARY) HYPERTENSION (5) Chest pain Code(s): R07.9 - CHEST PAIN, UNSPECIFIED (6) COPD (chronic obstructive pulmonary disease) Code(s): J44.9 - CHRONIC OBSTRUCTIVE PULMONARY DISEASE, UNSPECIFIED OBJECTIVE: ASSESSMENT AND PLAN: Problem List - Problems (1) Deep venous thrombosis of left popliteal vein Code(s): I82.432 - ACUTE EMBOLISM AND THROMBOSIS OF LEFT POPLITEAL VEIN Qualifiers: Chronicity: acute Qualified Code(s): I82.432 - Acute embolism and thrombosis of left popliteal vein (2) Dyspnea Code(s): R06.00 - DYSPNEA, UNSPECIFIED (3) Dyspnea on exertion Code(s): R06.09 - OTHER FORMS OF DYSPNEA (4) HTN (hypertension) Code(s): I10 - ESSENTIAL (PRIMARY) HYPERTENSION (5) Chest pain Code(s): R07.9 - CHEST PAIN, UNSPECIFIED (6) COPD (chronic obstructive pulmonary disease) Code(s): J44.9 - CHRONIC OBSTRUCTIVE PULMONARY DISEASE, UNSPECIFIED
[2016-06-04] MEDS ORDERED: HEPARIN INFUSION - 500 ML IVPB ONE (19:59)
[2016-06-04] MEDS ORDERED: HEPARIN - 25,000 UNIT in SODIUM CHLORIDE 495 ML IV SCH (22:15)
[2016-06-05] MEDS: ALBUTEROL SO4 0.083% IH SOL 2.5 MG/3 ML VIAL.NEB. NEB SCH ×3 (05:51→11:15)
[2016-06-05] MEDS ORDERED: PT OWN MED DRAWER 7, Y5N ONE ×3 (06:32→13:45)
[2016-06-05 07:58] LABS: MCH 24.6 pg (25.7-33.7); MCHC 31.6 g/dl (32.0-36.0); MEAN CELL VOLUME 77.9 fl (80-96); MEAN PLT VOLUME 7.8 fl (7.5-11.1); PLATELET COUNT 164 K/MM3 (134-434); RDW 20.2 % (11.6-15.6); WHITE BLOOD COUNT 3.4 K/mm3 (4.0-10.0)
[2016-06-05 08:24] LABS: CALCIUM 7.9 mg/dL (8.5-10.1); MAGNESIUM 1.9 mg/dL (1.8-2.4)
[2016-06-05] MEDS: amLODIPine BESYLATE 5 MG TABLET (FP) PO SCH (09:34)
[2016-06-05] MEDS: FUROSEMIDE 40 MG TABLET (FP) PO SCH (09:35)
[2016-06-05] MEDS: BUDESONIDE/FORMETEROL FUMARATE 160/4.5 mcg INHALER IH SCH (09:35)
[2016-06-05] MEDS: PANTOPRAZOLE 40 MG TABLET (FP) PO SCH (09:35)
[2016-06-05] MEDS: predniSONE 20 MG TABLET (UD) PO SCH (09:35)
[2016-06-05] MEDS: TIOTROPIUM BROMIDE 18 MCG/INH (DEVICE W/ 5 CAPSULES) IH SCH (09:35)
[2016-06-05 09:36] LABS: METAMYELOCYTE 2 % (0-2)
--- NOTE | 2016-06-05 09:38 | DS ---
Physical Examination Vital Signs: Vital Signs Temperature 97.5 F L 06/05/16 06:00 Pulse Rate 83 06/05/16 06:00 Respiratory Rate 18 06/05/16 06:00 Blood Pressure 128/69 06/05/16 06:00 O2 Sat by Pulse Oximetry (%) 94 L 06/04/16 21:00 Constitutional: Yes: Well Nourished, No Distress, Calm Eyes: Yes: WNL, Conjunctiva Clear, EOM Intact HENT: Yes: WNL, Atraumatic, Normocephalic Neck: Yes: WNL, Trachea Midline Cardiovascular: Yes: WNL, Regular Rate and Rhythm Respiratory: Yes: WNL, Regular, CTA Bilaterally Gastrointestinal: Yes: WNL, Normal Bowel Sounds Renal/: Yes: WNL Musculoskeletal: Yes: WNL Extremities: Yes: WNL Edema: No Peripheral Pulses WNL: Yes Peripheral Pulses: Left Radial: 2+, Right Radial: 2+, Left Doralis Pedis: 2+, Right Dorsalis Pedis: 2+, Left Femoral: 2+, Right Femoral: 2+ Integumentary: Yes: WNL Neurological: Yes: WNL, Alert, Oriented ...Motor Strength: WNL Psychiatric: Yes: WNL Labs: CBC, BMP 06/05/16 07:00 06/05/16 07:00 Discharge Summary Reason For Visit: DEEP VEIN THROMOSIS(DVT) OF POPLITEAL VEIN Current Active Problems COPD (chronic obstructive pulmonary disease) (Acute) Chest pain (Acute) Deep venous thrombosis of left popliteal vein (Acute) Dyspnea (Acute) Dyspnea on exertion (Acute) HTN (hypertension) (Acute) Condition: Stable - Instructions Referrals: Ghada Tracey MD [Staff Physician] - Disposition: HOME - Home Medications Comprehensive Discharge Medication List: Ambulatory Orders Furosemide [Lasix -] 40 mg PO DAILY 05/29/16 Pantoprazole Sodium [Protonix] 40 mg PO DAILY 05/29/16 Potassium Chloride 8 meq PO DAILY 05/29/16 Zolpidem Tartrate [Ambien] 10 mg PO HS PRN 05/29/16 Albuterol 0.083% Nebulizer [place] [Ventolin 0.083% Nebulizer Soln -] 1 amp NEB QIDR #1 amp 06/05/16 Amlodipine Besylate [Norvasc -] 5 mg PO DAILY #30 tablet 06/05/16 Budesonide/Formeterol Fumarate [SYMBICORT 160/4.5mcg -] 2 puff IH BID #1 inhaler 06/05/16 Prednisone [Deltasone -] See Taper PO DAILY #12 tablet 06/05/16 Tiotropium [place] [Spiriva] 1 puff IH DAILY #1 inh 06/05/16
[2016-06-05 11:36] VITALS: BP 150/70; PULSE 76; TEMP 99
== END 2016-06-05 16:44 | disposition home health service (06) | DRG 253 ==
LOC: JER 17:43 → JERBED 21:35 → J6S 05-30 12:55
PROVIDERS: ADMIT Family Medicine; ATTEND Family Medicine
PROC: 06H03DZ Insertion of Intraluminal Device into Inferior Vena Cava, Percutaneous Approach (ICD-10-PCS; principal; 2016-06-01 14:00)
PROC: 30233N1 Transfusion of Nonautologous Red Blood Cells into Peripheral Vein, Percutaneous Approach (ICD-10-PCS; 2016-06-01 14:00)
DX: I82.432 Acute embolism and thrombosis of left popliteal vein (principal); I50.32 Chronic diastolic (congestive) heart failure; J44.1 Chronic obstructive pulmonary disease with (acute) exacerbation; R07.89 Other chest pain; M81.0 Age-related osteoporosis without current pathological fracture; I27.2 Other secondary pulmonary hypertension; E87.8 Other disorders of electrolyte and fluid balance, not elsewhere classified; E87.6 Hypokalemia; I11.0 Hypertensive heart disease with heart failure
CPT/HCPCS: 36415; 36430; 71010-TC; 71275-TC; 76000-TC; 80048; 80053; 82272; 82550; 82728; 83540; 83550; 83735; 84484; 85025; 85027; 85610; 85730; 86900; 86901; 86922; 93005; 93010; 93306-TC; 94010; 94640; 94760; 94761; 97116-GP; 97161-GP; 99285-25; J1644; P9038; P9058

== ENCOUNTER 2016-08-29 16:52 | Inpatient (IN) | payer OTHER, MEDICARE ==
[2016-08-29 17:13] VITALS: BMI 26.6
[2016-08-29] MEDS ORDERED: ALBUTEROL SO4 2.5/IPRATROPIUM 0.5 INH SOL 3 ML VIAL.NEB. NEB ONE ×3 (18:26→19:20)
[2016-08-29] MEDS ORDERED: methylPREDNISolone NA SUCC 125 MG/2 ML VIAL IVPB ONE (18:26)
[2016-08-29] MEDS ORDERED: methylPREDNISolone NA SUCC 125 MG/2 ML VIAL ONE (18:30)
--- NOTE | 2016-08-29 18:33 | PDOC ---
History of Present Illness - General Chief Complaint: Respiratory Stated Complaint: CHEST PAIN - History of Present Illness Initial Comments: 08/29/16 18:42 81 yo F with ho rheumatoid lung disease HTN prior dVT ( iVC filter, h/o gi bleed ) diastolic heart failure here with worsening sob. pt states was just admitted to [facility] 2 weeks ago for same. at that time ct angio was negative for pe at that time, no f/c no cough no chest pain. no mod factors . pt recently discontinued her steroids. no leg swelling. Past History - Past Medical History Allergies/Adverse Reactions: Allergies Allergy/AdvReac Type Severity Reaction Status Date / Time No Known Allergies Allergy Verified 08/29/16 17:12 Home Medications: Ambulatory Orders Furosemide [Lasix -] 40 mg PO DAILY 05/29/16 Pantoprazole Sodium [Protonix] 40 mg PO DAILY 05/29/16 Potassium Chloride 8 meq PO DAILY 05/29/16 Zolpidem Tartrate [Ambien] 10 mg PO HS PRN 05/29/16 Albuterol 0.083% Nebulizer [place] [Ventolin 0.083% Nebulizer Soln -] 1 amp NEB QIDR #1 amp 06/05/16 Amlodipine Besylate [Norvasc -] 5 mg PO DAILY #30 tablet 06/05/16 Budesonide/Formeterol Fumarate [SYMBICORT 160/4.5mcg -] 2 puff IH BID #1 inhaler 06/05/16 Prednisone [Deltasone -] See Taper PO DAILY #12 tablet 06/05/16 Tiotropium [place] [Spiriva] 1 puff IH DAILY #1 inh 06/05/16 Cardiac Disorders: Yes COPD: No (LUNG PROBLEMS) HTN: Yes Kidney Stones: Yes - Surgical History Cholecystectomy: Yes - Psycho/Social/Smoking Cessation Hx Anxiety: No Suicidal Ideation: No Smoking History: Never smoked Have you smoked in the past 12 months: No Hx Alcohol Use: No Drug/Substance Use Hx: No Substance Use Type: None Review of Systems - Review of Systems Constitutional: No: Chills, Diaphoresis, Fever HEENTM: No: Eye Pain, Blurred Vision Respiratory: Yes: Orthopnea, Shortness of Breath, Wheezing. No: Productive cough ABD/GI: No: Abdominal Distended : No: Burning, Dysuria Musculoskeletal: No: Back Pain, Gout Integumentary: No: Bruising, Change in Color Neurological: No: Headache All Other Systems: Reviewed and Negative *Physical Exam - Vital Signs Last Vital Signs Temp Pulse Resp BP Pulse Ox 97.4 F L 101 H 18 152/81 98 08/29/16 17:07 08/29/16 17:07 08/29/16 17:07 08/29/16 17:07 08/29/16 17:07 - Physical Exam General Appearance: Yes: Appropriately Dressed. No: Apparent Distress HEENT: positive: EOMI Neck: positive: Trachea midline Respiratory/Chest: positive: Rales, Other (increased work of breathing, crackles at bases, ) Cardiovascular: positive: Regular Rhythm, Regular Rate Gastrointestinal/Abdominal: negative: Normal Bowel Sounds, Tender Rectal Exam: negative: heme negative stool, normal exam Musculoskeletal: positive: Normal Inspection. negative: CVA Tenderness Extremity: negative: Normal Capillary Refill, Normal Inspection Integumentary: positive: Normal Color, Dry, Warm Neurologic: positive: Fully Oriented, Alert, Normal Mood/Affect Heart Score/ECG Review #1 General ECG Interpretation: Sinus Rhythm, Normal Rate, Normal Intervals Medical Decision Making - Medical Decision Making 08/29/16 18:27 81 yo F with ho COPD usure of cause, here wtih worsening sob. chest pain. pt states was seen by outpt today, and decided will need home oxygen, does not have yet. also has h/o DVT left leg which had stent placed. was admitted to [facility] 2 weeks ago , at that time had a ct angio per family which was reportedly negative for PE. no f/c no change to cough. no other complaints. has been using albuterol at home, no relief. just finished course of steroids on exam bilat crackles at lung bases, increased respiratory effort. heart RR Rno mr/g/. abd soft NT ext WWP no edema. differential copd pna, DVt, pe, infection chf, plan nebs cxr ekg steroids, will require admission for desaturation with ambulation. will d/w dr. steward, ( hasn't seen pt since 04/24) *DC/Admit/Observation/Transfer Diagnosis at time of Disposition: COPD (chronic obstructive pulmonary disease) - Discharge Dispostion Admit: Yes - Referrals Referrals: Ghada Tracey MD [Primary Care Provider] -
[2016-08-29 19:10] LABS: BASOPHIL 0.2 % (0-2.0); EOSINOPHIL 3.2 % (0-4.5); MCH 26.3 pg (25.7-33.7); MCHC 31.6 g/dl (32.0-36.0); MEAN CELL VOLUME 83.1 fl (80-96); MEAN PLT VOLUME 8.3 fl (7.5-11.1); NEUTROPHILS 73.1 % (42.8-82.8); PLATELET COUNT 232 K/MM3 (134-434); RDW 16.3 % (11.6-15.6); WHITE BLOOD COUNT 6.4 K/mm3 (4.0-10.0)
[2016-08-29] MEDS ORDERED: ALBUTEROL SO4 0.083% IH SOL 2.5 MG/3 ML VIAL.NEB. NEB ONE (19:20)
[2016-08-29 19:23] LABS: INR 1.02 (0.82-1.09); PROTHROMBIN TIME (PATIENT) 11.2 SEC (9.98-11.88)
[2016-08-29] MEDS: ALBUTEROL SO4 2.5/IPRATROPIUM 0.5 INH SOL 3 ML VIAL.NEB. NEB SCH ×2 (19:31→19:45)
[2016-08-29 19:57] LABS: ALBUMIN 3.1 g/dl (3.4-5.0); ANION GAP 13 (8-16); CALCIUM 8.9 mg/dL (8.5-10.1); CO2 23 mmol/L (21-32); COCKROFT - GAULT 48.8325; GLUCOSE,RANDOM 94 mg/dL (74-106); SGOT/AST 16 U/L (15-37); SGPT/ALT 10 U/L (12-78)
[2016-08-29 20:01] LABS: ALK PHOS 109 U/L (45-117); BILIRUBIN,TOTAL 0.6 mg/dL (0.2-1.0); TOT PROT 6.5 g/dl (6.4-8.2); TROPONIN I < 0.02 ng/ml (0.00-0.05)
[2016-08-30] MEDS: PANTOPRAZOLE 40 MG TABLET (FP) PO SCH ×3 (01:45→22:12)
[2016-08-30] MEDS: BUDESONIDE/FORMETEROL FUMARATE 160/4.5 mcg INHALER IH SCH ×3 (03:13→22:16)
[2016-08-30] MEDS: methylPREDNISolone NA SUCC 125 MG/2 ML VIAL IVPB SCH ×2 (03:13→09:16)
[2016-08-30] MEDS ORDERED: PT OWN MED DRAWER 7, Y5N ONE ×2 (06:26→15:42)
[2016-08-30] MEDS: ALBUTEROL SO4 2.5/IPRATROPIUM 0.5 INH SOL 3 ML VIAL.NEB. NEB SCH ×4 (06:42→23:54)
[2016-08-30 08:26] LABS: BASOPHIL 0.3 % (0-2.0); MCH 26.6 pg (25.7-33.7); MCHC 31.8 g/dl (32.0-36.0); MEAN CELL VOLUME 83.6 fl (80-96); MEAN PLT VOLUME 8.1 fl (7.5-11.1); NEUTROPHILS 89.2 % (42.8-82.8); PLATELET COUNT 202 K/MM3 (134-434); RDW 16.1 % (11.6-15.6)
[2016-08-30 08:37] LABS: CALCIUM 8.4 mg/dL (8.5-10.1); COCKROFT - GAULT 48.8325; MAGNESIUM 2.2 mg/dL (1.8-2.4); PHOSPHOROUS 3.2 mg/dL (2.5-4.9)
[2016-08-30] MEDS: FUROSEMIDE 40 MG/4 ML INJECTABLE VIAL IVPB SCH (09:16)
[2016-08-30] MEDS: amLODIPine BESYLATE 5 MG TABLET (FP) PO SCH (09:16)
[2016-08-30] MEDS ORDERED: ACLIDINIUM BROMIDE 400 MCG/INH AERO.POWD IH SCH (10:00)
--- NOTE | 2016-08-30 10:30 | CON.PULM ---
Consult Consult Specialty:: PULMONARY Referred by:: Dr. Tracey Reason for Consultation:: shortness of breath - History of Present Illness Chief Complaint: shortness of breath History of Present Illness: 81yo female with h/o HTN, LV Diastolic dysfunction, COPD, rheumatoid arthritis, h/o DVT s/p IVC filter, h/o GI bleed who presents with worsening shortness of breath x "months." Was discharged from [facility] about 2 weeks ago where she had a CTA chest which was negative for PE. She reports a nonproductive cough and wheezing, chest discomfort when coughing. No fevers, chills or sweats. Does report leg swelling especially at end of the day and sleeps in an almost upright position. Was to receive home O2 today but is now admitted in the hospital. 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 Maintained at home on Symbicort, Proair which she reports compliance. - History Source History Provided By: Patient, Medical Record Limitations to Obtaining History: No Limitations - Past Medical History Cardio/Vascular: Yes: HTN Pulmonary: Yes: COPD, Other (progresive SOB) Musculoskeletal: Yes: Osteoarthritis - Past Surgical History Past Surgical History: Yes: Arthrosocopy, Cholecystectomy, Hysterectomy, Joint Replacement - Alcohol/Substance Use Hx Alcohol Use: No - Smoking History Smoking history: Never smoked Have you smoked in the past 12 months: No - Social History ADL: Family Assistance History of Recent Travel: No Home Medications - Allergies Allergies/Adverse Reactions: Allergies Allergy/AdvReac Type Severity Reaction Status Date / Time No Known Allergies Allergy Verified 08/29/16 17:12 - Home Medications Home Medications: Ambulatory Orders Furosemide [Lasix -] 40 mg PO DAILY 05/29/16 Potassium Chloride 8 meq PO DAILY 05/29/16 Amlodipine Besylate [Norvasc -] 5 mg PO DAILY #30 tablet 06/05/16 Budesonide/Formeterol Fumarate [SYMBICORT 160/4.5mcg -] 2 puff IH BID #1 inhaler 06/05/16 Tiotropium [place] [Spiriva] 1 puff IH DAILY #1 inh 06/05/16 Review of Systems - Review of Systems Constitutional: reports: Weakness. denies: Chills, Fever Eyes: denies: Recent Change in Vision HENT: denies: Nasal Congestion, Throat Pain Neck: denies: Stiffness, Tenderness Cardiovascular: reports: Chest Pain, Edema, Shortness of Breath. denies: Palpitations Respiratory: reports: Cough, Exercise Intolerance, Orthopnea, SOB, SOB on Exertion, Wheezing. denies: Hemoptysis Gastrointestinal: denies: Abdominal Pain, Nausea, Vomiting Genitourinary: denies: Dysuria, Hematuria Neurological: denies: Dizziness, Headache Physical Exam Vital Sings: Vital Signs Temperature 97.3 F L 08/30/16 06:00 Pulse Rate 77 08/30/16 06:00 Respiratory Rate 20 08/30/16 06:00 Blood Pressure 133/88 08/30/16 06:00 O2 Sat by Pulse Oximetry (%) 93 L 08/30/16 02:22 Constitutional: Yes: Mild Distress (mildly tachypneic with speaking) Eyes: Yes: Conjunctiva Clear, EOM Intact HENT: Yes: Atraumatic, Normocephalic Neck: Yes: Supple, Trachea Midline Cardiovascular: Yes: Regular Rate and Rhythm Respiratory: Yes: Diminished (distant breath sounds) ...Clubbing: No Gastrointestinal: Yes: Normal Bowel Sounds, Soft. No: Tenderness Edema: Yes Neurological: Yes: Alert, Oriented Labs: CBC, BMP 08/30/16 07:00 08/30/16 07:00 Imaging - Results Chest X-ray: Report Reviewed, Image Reviewed (no infiltrates) Problem List - Problems (1) Acute exacerbation of chronic obstructive pulmonary disease Code(s): J44.1 - CHRONIC OBSTRUCTIVE PULMONARY DISEASE W (ACUTE) EXACERBATION (2) Chest pain Code(s): R07.9 - CHEST PAIN, UNSPECIFIED (3) HTN (hypertension) Code(s): I10 - ESSENTIAL (PRIMARY) HYPERTENSION (4) Ventricular diastolic dysfunction determined by echocardiography Code(s): I51.9 - HEART DISEASE, UNSPECIFIED (5) Pulmonary hypertension Code(s): I27.2 - OTHER SECONDARY PULMONARY HYPERTENSION Assessment/Plan Acute COPD Exacerbation LV Diastolic Dysfunction Pulmonary HTN h/o DVT - agree with IV medrol but will decrease dose - inhaled bronchodilators standing and PRN - O2 to keep SpO2 >90% - cough suppressants - continue lasix - DVT prophylaxis Thank you for this consult Sid Graves MD
[2016-08-30] MEDS ORDERED: ALBUTEROL SO4 0.083% IH SOL 2.5 MG/3 ML VIAL.NEB. NEB PRN (10:35)
--- NOTE | 2016-08-30 13:08 | EKG ---
Test Reason : Blood Pressure : / mmHG Vent. Rate : 088 BPM Atrial Rate : 088 BPM P-R Int : 158 ms QRS Dur : 070 ms QT Int : 354 ms P-R-T Axes : 048 026 052 degrees QTc Int : 428 ms NORMAL SINUS RHYTHM NORMAL ECG WHEN COMPARED WITH ECG OF 29-MAY-2016 19:33, NO SIGNIFICANT CHANGE WAS FOUND Confirmed by JO AQUINO MD ([id number]) on 08/30/2016 1:07:36 PM Referred By: Confirmed By:JO AQUINO MD
[2016-08-30] MEDS: methylPREDNISolone NA SUCC 40 MG/1 ML VIAL IVPB SCH ×2 (14:00→21:00)
[2016-08-31] MEDS: methylPREDNISolone NA SUCC 40 MG/1 ML VIAL IVPB SCH ×4 (02:13→21:22)
[2016-08-31] MEDS: ALBUTEROL SO4 2.5/IPRATROPIUM 0.5 INH SOL 3 ML VIAL.NEB. NEB SCH ×4 (07:18→23:35)
[2016-08-31] MEDS: FUROSEMIDE 40 MG/4 ML INJECTABLE VIAL IVPB SCH (09:16)
[2016-08-31] MEDS: BUDESONIDE/FORMETEROL FUMARATE 160/4.5 mcg INHALER IH SCH ×2 (09:16→21:27)
[2016-08-31] MEDS: amLODIPine BESYLATE 5 MG TABLET (FP) PO SCH (09:16)
[2016-08-31] MEDS: PANTOPRAZOLE 40 MG TABLET (FP) PO SCH ×2 (09:16→21:22)
--- NOTE | 2016-08-31 11:52 | HP ---
Admitting History and Physical - Admission Chief Complaint: short of breath History of Present Illness: 81yo female with h/o HTN, LV Diastolic dysfunction, COPD, rheumatoid arthritis, h/o DVT s/p IVC filter, h/o GI bleed who presents with worsening shortness of breath x "months." Was discharged from [facility] about 2 weeks ago where she had a CTA chest which was negative for PE. She reports a nonproductive cough and wheezing, chest discomfort when coughing. No fevers, chills or sweats. Does report leg swelling especially at end of the day and sleeps in an almost upright position. Was to receive home O2 today but is now admitted in the hospital. 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 Maintained at home on Symbicort, Proair which she reports compliance. She was hospitalized at [facility] in the past for COPD exacerbation - was treated and released in stable condition -- she reports some medical management changes have been done and she has progressed to requiring O2 at home which had not been arranged at the time of admission. History Source: Patient, Medical Record Limitations to Obtaining History: No Limitations - Past Medical History Cardiovascular: Yes: HTN Pulmonary: Yes: COPD, Other (progresive SOB) ...: No Heme/Onc: Yes: Other (bleeding disorder ?? unclear stated had GI bleed that required 18 unit of blood ???) Musculoskeletal: Yes: Osteoarthritis - Past Surgical History Past Surgical History: Yes: Arthrosocopy, Cholecystectomy, Hysterectomy, Joint Replacement Additional Past Surgical History: IVC filter - Smoking History Smoking history: Never smoked Have you smoked in the past 12 months: No - Alcohol/Substance Use Hx Alcohol Use: No History of Substance Use: reports: None - Social History ADL: Family Assistance History of Recent Travel: No Home Medications - Allergies Allergies/Adverse Reactions: Allergies Allergy/AdvReac Type Severity Reaction Status Date / Time No Known Allergies Allergy Verified 08/29/16 17:12 - Home Medications Home Medications: Ambulatory Orders Furosemide [Lasix -] 40 mg PO DAILY 05/29/16 Potassium Chloride 8 meq PO DAILY 05/29/16 Amlodipine Besylate [Norvasc -] 5 mg PO DAILY #30 tablet 06/05/16 Budesonide/Formeterol Fumarate [SYMBICORT 160/4.5mcg -] 2 puff IH BID #1 inhaler 06/05/16 Tiotropium [place] [Spiriva] 1 puff IH DAILY #1 inh 06/05/16 Review of Systems - Review of Systems Constitutional: reports: Loss of Appetite, Weakness Eyes: reports: No Symptoms HENT: reports: No Symptoms Neck: reports: No Symptoms Cardiovascular: reports: Shortness of Breath Respiratory: reports: Cough, Exercise Intolerance, Orthopnea, SOB, SOB on Exertion, Wheezing Gastrointestinal: reports: No Symptoms Genitourinary: reports: No Symptoms Breasts: reports: No Symptoms Reported Musculoskeletal: reports: Muscle Cramps, Muscle Weakness Integumentary: reports: No Symptoms Neurological: reports: Tremors Endocrine: reports: No Symptoms Hematology/Lymphatic: reports: No Symptoms Psychiatric: reports: No Symptoms Physical Examination Vital Signs: Vital Signs Temperature 97.9 F 08/31/16 09:59 Pulse Rate 96 H 08/31/16 09:59 Respiratory Rate 20 08/31/16 09:59 Blood Pressure 144/74 08/31/16 09:59 O2 Sat by Pulse Oximetry (%) 94 L 08/30/16 11:00 Constitutional: Yes: Mild Distress Eyes: Yes: WNL, Conjunctiva Clear HENT: Yes: Atraumatic, Normocephalic Neck: Yes: Supple, Trachea Midline Cardiovascular: Yes: Regular Rate and Rhythm Respiratory: Yes: Cough, Diminished, On Nasal O2, SOB, Wheezes Gastrointestinal: Yes: Normal Bowel Sounds, Soft Renal/: Yes: WNL, Anuria. No: Bladder Distention, CVA Tenderness - Left, CVA Tenderness - Right Breast(s): Yes: WNL Musculoskeletal: Yes: WNL Extremities: Yes: WNL Edema: No Peripheral Pulses: Left Radial: 1+, Right Radial: 1+, Left Doralis Pedis: 1+, Right Dorsalis Pedis: 1+, Left Femoral: 1+, Right Femoral: 1+ Integumentary: Yes: WNL Neurological: Yes: WNL, Tingling, Tremors Psychiatric: Yes: Alert, Oriented, Agitated Labs: CBC, BMP 08/30/16 07:00 08/30/16 07:00 Problem List - Problems (1) Acute exacerbation of chronic obstructive pulmonary disease Code(s): J44.1 - CHRONIC OBSTRUCTIVE PULMONARY DISEASE W (ACUTE) EXACERBATION (2) COPD (chronic obstructive pulmonary disease) Assessment/Plan: treat with IV steroids pulmonary consult and follow up arrange for O2 at home nebulizer / inhaled steroids / PPi Code(s): J44.9 - CHRONIC OBSTRUCTIVE PULMONARY DISEASE, UNSPECIFIED (3) Pulmonary hypertension Assessment/Plan: stable Code(s): I27.2 - OTHER SECONDARY PULMONARY HYPERTENSION (4) Ventricular diastolic dysfunction determined by echocardiography Assessment/Plan: followed by Dr Faustin component of HF will consult Cardio Code(s): I51.9 - HEART DISEASE, UNSPECIFIED (5) Dyspnea Code(s): R06.00 - DYSPNEA, UNSPECIFIED (6) Dyspnea on exertion Code(s): R06.09 - OTHER FORMS OF DYSPNEA (7) HTN (hypertension) Code(s): I10 - ESSENTIAL (PRIMARY) HYPERTENSION
--- NOTE | 2016-08-31 12:24 | PN ---
Progress Note (short form) - Note Progress Note: PULMONARY APPEARS COMFORTABLE IN BED VSS/AFEBRILE ANICTERIC DIFFUSE B/L INSP CRACKLES BASES UP 1/2 LUNG ACUNA S1S2 RSR BS+ NONTENDER NO EDEMA LABS/MEDS/NOTES/IMAGING/ REVIEWED Acute COPD Exacerbation LV Diastolic Dysfunction Pulmonary HTN h/o DVT/IVC FILTER/No a/c due to bleed - IV medrol - inhaled bronchodilators standing and PRN - O2 to keep SpO2 >90% - cough suppressants - continue lasix - DVT prophylaxis - CT chest Poonam TITUS MD
--- NOTE | 2016-08-31 12:33 | PN ---
Progress Note (short form) - Note Progress Note: remains with Dyspnea at rest O2 in place / anxious due to SOB states unable to sleep - wheezing Vital Signs Period Temp Pulse Resp BP Sys/Calvillo Pulse Ox Last 24 Hr 97.3 F-100.2 F 91-100 20-20 141-150/74-94 neck no JVD heart reg S1/S2 Lungs decreased at basws / wheezing right >left abd soft CBC, BMP 08/30/16 07:00 08/30/16 07:00 Active Medications Albuterol Sulfate (Ventolin 0.083% Nebulizer Soln -) 1 amp NEB Q4H PRN PRN Reason: SHORT OF BREATH/WHEEZING Albuterol/Ipratropium (Duoneb -) 1 amp NEB QIDR [facility] Last Admin: 08/31/16 07:18 Dose: 1 amp Amlodipine Besylate (Norvasc -) 5 mg PO DAILY [facility] Last Admin: 08/31/16 09:16 Dose: 5 mg Budesonide/Formoterol Fumarate (Symbicort 160/4.5mcg -) 2 puff IH BID [facility] Last Admin: 08/31/16 09:16 Dose: 2 puff Furosemide (Lasix Injection -) 40 mg IVPB DAILY [facility] Last Admin: 08/31/16 09:16 Dose: 40 mg Methylprednisolone Sodium Succinate (Solu-Medrol -) 40 mg IVPB Q6H-IV [facility] Last Admin: 08/31/16 09:16 Dose: 40 mg Pantoprazole Sodium (Protonix -) 40 mg PO BID [facility] Last Admin: 08/31/16 09:16 Dose: 40 mg Problem List - Problems (1) Acute exacerbation of chronic obstructive pulmonary disease Code(s): J44.1 - CHRONIC OBSTRUCTIVE PULMONARY DISEASE W (ACUTE) EXACERBATION (2) COPD (chronic obstructive pulmonary disease) Code(s): J44.9 - CHRONIC OBSTRUCTIVE PULMONARY DISEASE, UNSPECIFIED (3) Pulmonary hypertension Code(s): I27.2 - OTHER SECONDARY PULMONARY HYPERTENSION (4) Ventricular diastolic dysfunction determined by echocardiography Code(s): I51.9 - HEART DISEASE, UNSPECIFIED (5) Dyspnea Code(s): R06.00 - DYSPNEA, UNSPECIFIED (6) Dyspnea on exertion Code(s): R06.09 - OTHER FORMS OF DYSPNEA (7) HTN (hypertension) Code(s): I10 - ESSENTIAL (PRIMARY) HYPERTENSION
--- NOTE | 2016-08-31 17:45 | CON.NEURO ---
Consult Consult Specialty:: neurology - History of Present Illness History of Present Illness: 81yo female with h/o HTN, LV Diastolic dysfunction, COPD, rheumatoid arthritis, h/o DVT s/p IVC filter, h/o GI bleed who presented with worsening SOB x "months. " Was discharged from [facility] about 2 weeks ago where she had a CTA chest which was negative for PE. She reports a nonproductive cough and wheezing, chest discomfort when coughing. No fevers, chills or sweats. Maintained at home on Symbicort, Proair which she reports compliance. called for tremor which she feels started over last few months, worse when she is using her hands, holding cup, eating etc. no HX of ETOH, no fam HX of tremor. Does feel tremor may have started more after steroids started. pain in her legs no focal weakness/numbness. - History Source History Provided By: Patient, Medical Record - Past Medical History Cardio/Vascular: Yes: HTN Pulmonary: Yes: COPD, Other (progresive SOB) ...: No Musculoskeletal: Yes: Osteoarthritis - Past Surgical History Past Surgical History: Yes: Arthrosocopy, Cholecystectomy, Hysterectomy, Joint Replacement - Alcohol/Substance Use Hx Alcohol Use: No History of Substance Use: reports: None - Smoking History Smoking history: Never smoked Have you smoked in the past 12 months: No - Social History ADL: Family Assistance History of Recent Travel: No Home Medications - Allergies Allergies/Adverse Reactions: Allergies Allergy/AdvReac Type Severity Reaction Status Date / Time No Known Allergies Allergy Verified 08/29/16 17:12 - Home Medications Home Medications: Ambulatory Orders Furosemide [Lasix -] 40 mg PO DAILY 05/29/16 Potassium Chloride 8 meq PO DAILY 05/29/16 Amlodipine Besylate [Norvasc -] 5 mg PO DAILY #30 tablet 06/05/16 Budesonide/Formeterol Fumarate [SYMBICORT 160/4.5mcg -] 2 puff IH BID #1 inhaler 06/05/16 Tiotropium [place] [Spiriva] 1 puff IH DAILY #1 inh 06/05/16 Physical Exam-Neuro Vital Signs: Vital Signs Temperature 97.8 F 08/31/16 15:47 Pulse Rate 112 H 08/31/16 15:47 Respiratory Rate 21 08/31/16 15:47 Blood Pressure 134/101 08/31/16 15:47 O2 Sat by Pulse Oximetry (%) 94 L 08/31/16 12:00 Constitutional: Yes: Well Nourished Neck: Yes: WNL Cardiovascular: Yes: Regular Rate and Rhythm Labs: CBC, BMP 08/30/16 07:00 08/30/16 07:00 INR, PTT INR 1.02 (0.82-1.09) 08/29/16 18:52 - Neuro Exam Level Of Consciousness: Yes: Alert, Oriented to Person, Oriented to Place ( slight head tremor, EOMI, VFF, no facial, motor: tremor worse with position, not at rest, no cogwheeling, no focal weakness, swelling in LE, tender ; reflexes symmtric , plantars down ) NIH Stroke Scale - Total Score NIH Stroke Scale Score: 0 Problem List - Problems (1) Acute exacerbation of chronic obstructive pulmonary disease Code(s): J44.1 - CHRONIC OBSTRUCTIVE PULMONARY DISEASE W (ACUTE) EXACERBATION (2) Deep venous thrombosis of left popliteal vein Code(s): I82.432 - ACUTE EMBOLISM AND THROMBOSIS OF LEFT POPLITEAL VEIN Qualifiers: Chronicity: acute Qualified Code(s): I82.432 - Acute embolism and thrombosis of left popliteal vein (3) Dyspnea Code(s): R06.00 - DYSPNEA, UNSPECIFIED (4) Essential tremor Code(s): G25.0 - ESSENTIAL TREMOR Assessment/Plan 81yo female with h/o HTN, LV Diastolic dysfunction, COPD, rheumatoid arthritis, h/o DVT s/p IVC filter, h/o GI bleed who presented with worsening SOB x "months. " called for tremor which she feels started over last few months, worse when she is using her hands, holding cup, eating etc. no HX of ETOH, no fam HX of tremor. Does feel tremor may have started more after steroids started. tremor appears to be essential tremor based--no signs of parkinsonism; this is likely be worsened by B agonists, asthma RX and prednisone etc. check TSH would avoid B noa as may worsen Asthma; would monitor for now and ideally will improve when respiratory RX tapered off. Thanks for including us in her care can FU as outpt. Dr Mcmullen [phone]
[2016-09-01] MEDS ORDERED: morphine CARPU-JECT 2 MG/1 ML DISP.SYRIN IVPUSH ONE (01:42)
[2016-09-01] MEDS: methylPREDNISolone NA SUCC 40 MG/1 ML VIAL IVPB SCH ×5 (02:42→21:00)
[2016-09-01 02:49] LABS: MCH 26.3 pg (25.7-33.7); MCHC 31.9 g/dl (32.0-36.0); MEAN CELL VOLUME 82.4 fl (80-96); MEAN PLT VOLUME 7.8 fl (7.5-11.1); PLATELET COUNT 275 K/MM3 (134-434); RDW 16.4 % (11.6-15.6); WHITE BLOOD COUNT 8.7 K/mm3 (4.0-10.0)
[2016-09-01 03:28] LABS: ALBUMIN 2.9 g/dl (3.4-5.0); BILIRUBIN,TOTAL 0.2 mg/dL (0.2-1.0); CALCIUM 7.9 mg/dL (8.5-10.1); COCKROFT - GAULT 32.555; CREATININE 1.5 mg/dL (0.55-1.02); TOT PROT 5.8 g/dl (6.4-8.2)
--- NOTE | 2016-09-01 03:49 | HOSP ---
Subjective - Review of Symptoms Events since last encounter: severe RUQ pain Subjective: trinity states that earlier today she started having LUQ pain when coughing and bow it is constant and 10/10, dull, nonradiating,a ggravated by coughing, BM or movement. Deneis n/v, melena hematochezia, had normal BM earlier today, denies dysuria, chest pain, sob palpitations, fever chills. History of appendectomy and cholecystectomy but no history of diverticulosis. no constipation, never had this pain before. Afebrile and hemodynamically stable. last set of labs no white count General: No: Chills, Night Sweats, Malaise HEENT: No: Head Aches Pulmonary: No: Dyspnea, Cough, Pleuritic Chest Pain Cardiovascular: No: Chest Pain, Palpitations, Light Headedness Gastrointestinal: Yes: Abdominal Pain. No: Nausea, Vomiting, Diarrhea, Constipation, Melena, Hematochezia Genitourinary: No: Dysuria Musculoskeletal: Yes: No Symptoms Neurological: No: Weakness, Numbness Physical Examination Vital Signs: Vital Signs Temperature 97.7 F 08/31/16 23:39 Pulse Rate 93 H 08/31/16 23:39 Respiratory Rate 20 08/31/16 23:39 Blood Pressure 138/73 08/31/16 23:39 O2 Sat by Pulse Oximetry (%) 98 08/31/16 21:00 Constitutional: Yes: Well Nourished, Moderate Distress Eyes: Yes: Conjunctiva Clear, EOM Intact, PERRL HENT: Yes: Atraumatic Neck: Yes: Supple. No: Lymphadenopathy Cardiovascular: Yes: Regular Rate and Rhythm, S1, S2. No: JVD Respiratory: Yes: Regular, CTA Bilaterally Gastrointestinal: Yes: Normal Bowel Sounds, Tenderness (luq, with voluntary guarding. also pain in the 11th and 12 anterior R ribs). No: Ascites, Distention, Palpable Mass, Pulsatile Mass, Splenomegaly, Vomiting Neurological: Yes: Alert, Oriented Psychiatric: Yes: Alert, Oriented Labs: CBC, BMP 09/01/16 02:13 09/01/16 02:13 Hospitalist Encounter Assessment: 81yo female with h/o HTN, LV Diastolic dysfunction, COPD, rheumatoid arthritis, h/o DVT s/p IVC filter, h/o GI bleed who presents with worsening shortness of breath x "months" no complaining of acute RUQ 10/10 abd pain acute abdminal pain -RUQ -history of appendectomy and cholecystectomy, no history of diverticulosis -last labs no leukocytosis, afebrile, vitals stable -likely musculoskeletal pain due to strain from coughing -KUB abd r/o obstruction or free air -CBC tunnel mucker stat -one dose morphine -attempt to contact attending Outcome: -pateint's pain resolved and he fell asleep -KUB negative for acute pathology, stool in colon -creat increased to 1.5 from 1 last morning BUN 32 -ordered CLARENCE workup including kidney US, urine lytes, fena, eosinophils. -attending to f/u Visit type - Emergency Visit Emergency Visit: Yes ED Registration Date: 08/29/16 Care time: The patient presented to the Emergency Department on the above date and was hospitalized for further evaluation of their emergent condition. - New Patient This patient is new to me today: Yes Date on this admission: 09/01/16 - Critical Care Critical Care patient: No
[2016-09-01] MEDS: ALBUTEROL SO4 2.5/IPRATROPIUM 0.5 INH SOL 3 ML VIAL.NEB. NEB SCH ×3 (06:53→17:54)
[2016-09-01 07:39] LABS: BASOPHIL 0.2 % (0-2.0); MCH 26.5 pg (25.7-33.7); MCHC 32.1 g/dl (32.0-36.0); MEAN CELL VOLUME 82.5 fl (80-96); MEAN PLT VOLUME 7.9 fl (7.5-11.1); NEUTROPHILS 92.7 % (42.8-82.8); PLATELET COUNT 242 K/MM3 (134-434); RDW 16.2 % (11.6-15.6); WHITE BLOOD COUNT 7.7 K/mm3 (4.0-10.0)
[2016-09-01 08:25] LABS: ALBUMIN 2.8 g/dl (3.4-5.0); CALCIUM 7.8 mg/dL (8.5-10.1); MAGNESIUM 2.1 mg/dL (1.8-2.4)
[2016-09-01 08:36] LABS: BILIRUBIN,TOTAL 0.2 mg/dL (0.2-1.0); COCKROFT - GAULT 37.5615; CREATININE 1.3 mg/dL (0.55-1.02); THYROID STIMULATING HORMONE 0.4 uIU/ml (0.358-3.74); TOT PROT 5.6 g/dl (6.4-8.2)
[2016-09-01] MEDS ORDERED: PT OWN MED DRAWER 7, Y5N ONE (10:05)
[2016-09-01] MEDS: amLODIPine BESYLATE 5 MG TABLET (FP) PO SCH (10:12)
[2016-09-01] MEDS: PANTOPRAZOLE 40 MG TABLET (FP) PO SCH ×2 (10:12→22:23)
[2016-09-01] MEDS: FUROSEMIDE 40 MG/4 ML INJECTABLE VIAL IVPB SCH (10:12)
[2016-09-01] MEDS: BUDESONIDE/FORMETEROL FUMARATE 160/4.5 mcg INHALER IH SCH ×2 (10:15→22:23)
--- NOTE | 2016-09-01 11:35 | PN ---
Progress Note (short form) - Note Progress Note: Events noted from overnight. LLQ point tenderness. Breathing feels about the same. No CP. Intake & Output 08/29/16 08/30/16 08/31/16 09/01/16 23:59 23:59 23:59 23:59 Intake Total 1750 850 210 Balance 1750 850 210 Weight 160 lb 160 lb Last Vital Signs Temp Pulse Resp BP Pulse Ox 97.5 F L 96 H 20 138/66 98 09/01/16 07:36 09/01/16 07:36 09/01/16 07:36 09/01/16 07:36 08/31/16 21:00 Active Medications Albuterol Sulfate (Ventolin 0.083% Nebulizer Soln -) 1 amp NEB Q4H PRN PRN Reason: SHORT OF BREATH/WHEEZING Albuterol/Ipratropium (Duoneb -) 1 amp NEB QIDR [facility] Last Admin: 09/01/16 06:53 Dose: 1 amp Amlodipine Besylate (Norvasc -) 5 mg PO DAILY [facility] Last Admin: 09/01/16 10:12 Dose: 5 mg Budesonide/Formoterol Fumarate (Symbicort 160/4.5mcg -) 2 puff IH BID [facility] Last Admin: 09/01/16 10:15 Dose: 2 puff Furosemide (Lasix Injection -) 40 mg IVPB DAILY [facility] Last Admin: 09/01/16 10:12 Dose: 40 mg Methylprednisolone Sodium Succinate (Solu-Medrol -) 40 mg IVPB Q6H-IV [facility] Last Admin: 09/01/16 10:14 Dose: 40 mg Pantoprazole Sodium (Protonix -) 40 mg PO BID [facility] Last Admin: 09/01/16 10:12 Dose: 40 mg Constitutional: Yes: Awake and alert Eyes: Yes: Conjunctiva Clear, EOM Intact HENT: Yes: Atraumatic, Normocephalic Neck: Yes: Supple, Trachea Midline Cardiovascular: Yes: Regular Rate and Rhythm Respiratory: Yes: Diminished, few scattered rhonchi ...Clubbing: No Gastrointestinal: Yes: Normal Bowel Sounds, Soft. No: Tenderness Edema: Yes Neurological: Yes: Alert, Oriented Labs: Laboratory Results - last 24 hr 09/01/16 09/01/16 09/01/16 02:13 02:13 02:13 WBC 8.7 D RBC 3.44 L Hgb 9.1 L Hct 28.4 L MCV 82.4 MCHC 31.9 L RDW 16.4 H Plt Count 275 D MPV 7.8 Neutrophils % Lymphocytes % Monocytes % Eosinophils % Basophils % Sodium 143 Potassium 3.7 Chloride 105 Carbon Dioxide 23 Anion Gap 15 BUN 32 H D Creatinine 1.5 H D Creat Clearance w eGFR 33.16 Random Glucose 202 H Calcium 7.9 L Magnesium Total Bilirubin 0.2 D AST 9 L D ALT 10 L Alkaline Phosphatase 101 Troponin I < 0.02 Total Protein 5.8 L Albumin 2.9 L TSH 09/01/16 09/01/16 06:00 06:00 WBC 7.7 RBC 3.41 L Hgb 9.0 L Hct 28.1 L MCV 82.5 MCHC 32.1 RDW 16.2 H Plt Count 242 MPV 7.9 Neutrophils % 92.7 H Lymphocytes % 4.3 L D Monocytes % 2.8 L D Eosinophils % 0.0 Basophils % 0.2 Sodium 143 Potassium 4.2 Chloride 108 H Carbon Dioxide 25 Anion Gap 10 BUN 31 H Creatinine 1.3 H Creat Clearance w eGFR 39.12 Random Glucose 142 H D Calcium 7.8 L Magnesium 2.1 Total Bilirubin 0.2 AST 11 L D ALT 9 L Alkaline Phosphatase 91 Troponin I Total Protein 5.6 L Albumin 2.8 L TSH 0.40 Problem List - Problems (1) Acute exacerbation of chronic obstructive pulmonary disease Code(s): J44.1 - CHRONIC OBSTRUCTIVE PULMONARY DISEASE W (ACUTE) EXACERBATION (2) Chest pain Code(s): R07.9 - CHEST PAIN, UNSPECIFIED (3) HTN (hypertension) Code(s): I10 - ESSENTIAL (PRIMARY) HYPERTENSION (4) Ventricular diastolic dysfunction determined by echocardiography Code(s): I51.9 - HEART DISEASE, UNSPECIFIED (5) Pulmonary hypertension Code(s): I27.2 - OTHER SECONDARY PULMONARY HYPERTENSION Assessment/Plan Acute COPD Exacerbation LV Diastolic Dysfunction Pulmonary HTN h/o DVT Suspected LLQ small hematoma possibly from coughing - Steroid taper - inhaled bronchodilators standing and PRN - O2 to keep SpO2 >90% - cough suppressants - Lasix - DVT prophylaxis - Ambulate - Monitor abdominal exam Dr Brantley
[2016-09-01 16:01] LABS: CHLORIDE,RANDOM URINE 132 MMOL/L; SODIUM,RANDOM URINE 111 MMOL/L
[2016-09-01 16:05] LABS: URINE CREATININE < 13.0 mg/dL (20-320)
--- NOTE | 2016-09-01 16:22 | PN ---
Physical Exam: SUBJECTIVE: Patient seen and examined at bedside. Becomes SOB with minimal exertion. Leg swelling much improved. Was told needs home O2. OBJECTIVE: Vital Signs Period Temp Pulse Resp BP Sys/Calvillo Pulse Ox Last 24 Hr 97.1 F-98.3 F 90-118 20-20 131-148/66-77 95-98 GENERAL: The patient is awake, alert, and fully oriented, in no acute distress. HEAD: Normal with no signs of trauma. EYES: PERRL, extraocular movements intact, sclera anicteric, conjunctiva clear. No ptosis. LUNGS: Breath sounds equal, clear to auscultation bilaterally, no wheezes, no crackles, no accessory muscle use. HEART: Regular rate and rhythm, S1, S2 without murmur, rub or gallop. ABDOMEN: Soft, nontender, nondistended, normoactive bowel sounds, no guarding, no rebound, no hepatosplenomegaly, no masses. EXTREMITIES: 2+ pulses, warm, well-perfused, trace bilateral lower extremity edema NEUROLOGICAL: Cranial nerves II through XII grossly intact. Normal speech, gait not observed. Laboratory Results - last 24 hr 09/01/16 09/01/16 09/01/16 02:13 02:13 02:13 WBC 8.7 D RBC 3.44 L Hgb 9.1 L Hct 28.4 L MCV 82.4 MCHC 31.9 L RDW 16.4 H Plt Count 275 D MPV 7.8 Neutrophils % Lymphocytes % Monocytes % Eosinophils % Basophils % Sodium 143 Potassium 3.7 Chloride 105 Carbon Dioxide 23 Anion Gap 15 BUN 32 H D Creatinine 1.5 H D Creat Clearance w eGFR 33.16 Random Glucose 202 H Calcium 7.9 L Magnesium Total Bilirubin 0.2 D AST 9 L D ALT 10 L Alkaline Phosphatase 101 Troponin I < 0.02 Total Protein 5.8 L Albumin 2.9 L TSH Ur Random Sodium Ur Random Potassium Ur Random Chloride Urine Creatinine 09/01/16 09/01/16 09/01/16 06:00 06:00 12:05 WBC 7.7 RBC 3.41 L Hgb 9.0 L Hct 28.1 L MCV 82.5 MCHC 32.1 RDW 16.2 H Plt Count 242 MPV 7.9 Neutrophils % 92.7 H Lymphocytes % 4.3 L D Monocytes % 2.8 L D Eosinophils % 0.0 Basophils % 0.2 Sodium 143 Potassium 4.2 Chloride 108 H Carbon Dioxide 25 Anion Gap 10 BUN 31 H Creatinine 1.3 H Creat Clearance w eGFR 39.12 Random Glucose 142 H D Calcium 7.8 L Magnesium 2.1 Total Bilirubin 0.2 AST 11 L D ALT 9 L Alkaline Phosphatase 91 Troponin I Total Protein 5.6 L Albumin 2.8 L TSH 0.40 Ur Random Sodium 111 Ur Random Potassium 14.9 Ur Random Chloride 132 Urine Creatinine < 13.0 L Active Medications Generic Name Dose Route Start Last Admin Trade Name Freq PRN Reason Stop Dose Admin Albuterol Sulfate 1 amp 08/30/16 10:35 Ventolin 0.083% Nebulizer Soln - NEB Q4H PRN SHORT OF BREATH/WHEEZING Albuterol/Ipratropium 1 amp 08/30/16 06:00 09/01/16 11:15 Duoneb - NEB 1 amp QIDR [facility] Administration Amlodipine Besylate 5 mg 08/30/16 10:00 09/01/16 10:12 Norvasc - PO 5 mg DAILY [facility] Administration Budesonide/Formoterol Fumarate 2 puff 08/30/16 01:30 09/01/16 10:15 Symbicort 160/4.5mcg - IH 2 puff BID [facility] Administration Furosemide 40 mg 08/30/16 10:00 09/01/16 10:12 Lasix Injection - IVPB 40 mg DAILY [facility] Administration Methylprednisolone Sodium Succinate 40 mg 08/30/16 10:35 09/01/16 10:14 Solu-Medrol - IVPB 40 mg Q6H-IV [facility] Administration Pantoprazole Sodium 40 mg 08/30/16 01:15 09/01/16 10:12 Protonix - PO 40 mg BID [facility] Administration ASSESSMENT/PLAN 81 year-old woman with a PMH of HTN, diastolic HF, COPD, RA, h/o multiple massive rectal bleeding requiring transfusion (05/2015), and 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 [address] [facility] for same complaints. Acute exacerbation of chronic COPD --lungs clear on exam --09/01 CT chest: mild bilateral atelectasis/scarring; unchanged mild bronchiectasis --continue Symbicort, IV steroids, duonebs --pre-post tomorrow --transition to PO steroids on discharge Diastolic heart failure --06/04 Echo: LV mildly dilated, impaired relaxation, LAE, moderate MR, mild to moderate TR, mild pHTN, trace PI --patient reports her leg swelling is much better --continue IV Lasix 40mg daily Visit type - Emergency Visit Emergency Visit: Yes ED Registration Date: 08/29/16 Care time: The patient presented to the Emergency Department on the above date and was hospitalized for further evaluation of their emergent condition. - New Patient This patient is new to me today: Yes Date on this admission: 09/02/16 - Critical Care Critical Care patient: No
[2016-09-02] MEDS: methylPREDNISolone NA SUCC 40 MG/1 ML VIAL IVPB SCH (02:37)
[2016-09-02] MEDS: ALBUTEROL SO4 2.5/IPRATROPIUM 0.5 INH SOL 3 ML VIAL.NEB. NEB SCH ×3 (06:00→11:15)
[2016-09-02] MEDS ORDERED: ACETAMINOPHEN 325 MG TABLET (FP) PO PRN (07:32)
[2016-09-02] MEDS ORDERED: methylPREDNISolone NA SUCC 40 MG/1 ML VIAL IVPB SCH (08:01)
[2016-09-02] MEDS ORDERED: PT OWN MED DRAWER 7, Y5N ONE (10:21)
[2016-09-02] MEDS: FUROSEMIDE 40 MG/4 ML INJECTABLE VIAL IVPB SCH (10:26)
[2016-09-02] MEDS: PANTOPRAZOLE 40 MG TABLET (FP) PO SCH (10:26)
[2016-09-02] MEDS: amLODIPine BESYLATE 5 MG TABLET (FP) PO SCH (10:26)
[2016-09-02] MEDS: BUDESONIDE/FORMETEROL FUMARATE 160/4.5 mcg INHALER IH SCH (10:27)
[2016-09-02 11:36] VITALS: PULSE 85
--- NOTE | 2016-09-02 11:55 | PN ---
Progress Note (short form) - Note Progress Note: LLQ point tenderness better. Breathing feels a little better. No CP. Intake & Output 08/30/16 08/31/16 09/01/16 09/02/16 23:59 23:59 23:59 23:59 Intake Total 1750 850 610 400 Balance 1750 850 610 400 Weight 160 lb Last Vital Signs Temp Pulse Resp BP Pulse Ox 97.5 F L 85 20 152/82 97 09/02/16 06:10 09/02/16 11:15 09/02/16 06:10 09/02/16 06:10 09/02/16 11:15 Active Medications Acetaminophen (Tylenol -) 650 mg PO Q6H PRN PRN Reason: FEVER OR PAIN Last Admin: 09/02/16 08:13 Dose: 650 mg Albuterol Sulfate (Ventolin 0.083% Nebulizer Soln -) 1 amp NEB Q4H PRN PRN Reason: SHORT OF BREATH/WHEEZING Albuterol/Ipratropium (Duoneb -) 1 amp NEB QIDR [facility] Last Admin: 09/02/16 11:15 Dose: 1 amp Amlodipine Besylate (Norvasc -) 5 mg PO DAILY [facility] Last Admin: 09/02/16 10:26 Dose: 5 mg Budesonide/Formoterol Fumarate (Symbicort 160/4.5mcg -) 2 puff IH BID [facility] Last Admin: 09/02/16 10:27 Dose: 2 puff Furosemide (Lasix Injection -) 40 mg IVPB DAILY [facility] Last Admin: 09/02/16 10:26 Dose: 40 mg Methylprednisolone Sodium Succinate (Solu-Medrol -) 40 mg IVPB BID [facility] Last Admin: 09/02/16 08:14 Dose: 40 mg Pantoprazole Sodium (Protonix -) 40 mg PO BID [facility] Last Admin: 09/02/16 10:26 Dose: 40 mg Constitutional: Yes: Awake and alert Eyes: Yes: Conjunctiva Clear, EOM Intact HENT: Yes: Atraumatic, Normocephalic Neck: Yes: Supple, Trachea Midline Cardiovascular: Yes: Regular Rate and Rhythm Respiratory: Yes: Diminished, few scattered rhonchi ...Clubbing: No Gastrointestinal: Yes: Normal Bowel Sounds, Soft. No: Tenderness Edema: Yes Neurological: Yes: Alert, Oriented Labs: Laboratory Results - last 24 hr 09/01/16 12:05 Ur Random Sodium 111 Ur Random Potassium 14.9 Ur Random Chloride 132 Urine Creatinine < 13.0 L Problem List - Problems (1) Acute exacerbation of chronic obstructive pulmonary disease Code(s): J44.1 - CHRONIC OBSTRUCTIVE PULMONARY DISEASE W (ACUTE) EXACERBATION (2) Chest pain Code(s): R07.9 - CHEST PAIN, UNSPECIFIED (3) HTN (hypertension) Code(s): I10 - ESSENTIAL (PRIMARY) HYPERTENSION (4) Ventricular diastolic dysfunction determined by echocardiography Code(s): I51.9 - HEART DISEASE, UNSPECIFIED (5) Pulmonary hypertension Code(s): I27.2 - OTHER SECONDARY PULMONARY HYPERTENSION Assessment/Plan Acute COPD Exacerbation LV Diastolic Dysfunction Pulmonary HTN h/o DVT Suspected LLQ small hematoma possibly from coughing - Steroid taper - inhaled bronchodilators standing and PRN - O2 to keep SpO2 >90% - cough suppressants - Lasix - DVT prophylaxis - Ambulate - Monitor abdominal exam Dr Brantley
[2016-09-02 12:37] VITALS: BP 144/91; TEMP 97.8
[2016-09-02] MEDS ORDERED: predniSONE 20 MG TABLET (UD) PO ONE (13:25)
--- NOTE | 2016-09-02 20:31 | DS ---
Physical Exam: SUBJECTIVE: Patient seen and examined OBJECTIVE: Vital Signs Period Temp Pulse Resp BP Sys/Calvillo Pulse Ox Last 24 Hr 97.5 F-97.8 F 75-91 18-20 144-152/82-91 95-97 PHYSICAL EXAM GENERAL: The patient is awake, alert, and fully oriented, in no acute distress. HEAD: Normal with no signs of trauma. EYES: PERRL, extraocular movements intact, sclera anicteric, conjunctiva clear. No ptosis. LUNGS: Breath sounds equal, clear to auscultation bilaterally, no wheezes, no crackles, no accessory muscle use. HEART: Regular rate and rhythm, S1, S2 without murmur, rub or gallop. ABDOMEN: Soft, nontender, nondistended, normoactive bowel sounds, no guarding, no rebound, no hepatosplenomegaly, no masses. EXTREMITIES: 2+ pulses, warm, well-perfused, trace bilateral lower extremity edema NEUROLOGICAL: Cranial nerves II through XII grossly intact. Normal speech, gait not observed. LABS CBCD WBC 7.7 K/mm3 (4.0-10.0) 09/01/16 06:00 RBC 3.41 M/mm3 (3.60-5.2) L 09/01/16 06:00 Hgb 9.0 GM/dL (10.7-15.3) L 09/01/16 06:00 Hct 28.1 % (32.4-45.2) L 09/01/16 06:00 MCV 82.5 fl (80-96) 09/01/16 06:00 MCHC 32.1 g/dl (32.0-36.0) 09/01/16 06:00 RDW 16.2 % (11.6-15.6) H 09/01/16 06:00 Plt Count 242 K/MM3 (134-434) 09/01/16 06:00 MPV 7.9 fl (7.5-11.1) 09/01/16 06:00 CMP Sodium 143 mmol/L (136-145) 09/01/16 06:00 Potassium 4.2 mmol/L (3.5-5.1) 09/01/16 06:00 Chloride 108 mmol/L (98-107) H 09/01/16 06:00 Carbon Dioxide 25 mmol/L (21-32) 09/01/16 06:00 Anion Gap 10 (8-16) 09/01/16 06:00 BUN 31 mg/dL (7-18) H 09/01/16 06:00 Creatinine 1.3 mg/dL (0.55-1.02) H 09/01/16 06:00 Creat Clearance w eGFR 39.12 (>60) 09/01/16 06:00 Calcium 7.8 mg/dL (8.5-10.1) L 09/01/16 06:00 Total Bilirubin 0.2 mg/dL (0.2-1.0) 09/01/16 06:00 AST 11 U/L (15-37) L D 09/01/16 06:00 ALT 9 U/L (12-78) L 09/01/16 06:00 Alkaline Phosphatase 91 U/L (45-117) 09/01/16 06:00 Total Protein 5.6 g/dl (6.4-8.2) L 09/01/16 06:00 Albumin 2.8 g/dl (3.4-5.0) L 09/01/16 06:00 HOSPITAL COURSE: Date of Admission:08/29/16 Date of Discharge: 09/02/16 81 year-old woman with a PMH of HTN, diastolic HF, COPD, RA, h/o multiple massive rectal bleeding requiring transfusion (05/2015), and 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 Hospitalized 2 weeks ago at [facility] for same complaints. Acute exacerbation of chronic COPD --lungs clear on exam --09/01 CT chest: mild bilateral atelectasis/scarring; unchanged mild bronchiectasis --continue Symbicort, IV steroids, duonebs --pre-post: sats 87% on room air at rest; needs home O2 Diastolic heart failure --06/04 Echo: LV mildly dilated, impaired relaxation, LAE, moderate MR, mild to moderate TR, mild pHTN, trace PI --patient reports her leg swelling is much better --continue home dose lasix on discharge Minutes to complete discharge: 35 Discharge Summary Reason For Visit: CHRONIC OBSTRUCTIVE PULMONARY DISEASE Condition: Improved - Instructions Diet, Activity, Other Instructions: A prescription has been sent to your pharmacy for prednisone. Take this medication exactly as directed. Be sure to finish all the medication. Arrangements are being made to provide you with home oxygen. You should follow up with your primary care provider, Dr. Tracey, this week. Referrals: Ghada Tracey MD [Primary Care Provider] - 1 Week Disposition: HOME - Home Medications Comprehensive Discharge Medication List: Ambulatory Orders Furosemide [Lasix -] 40 mg PO DAILY 05/29/16 Potassium Chloride 8 meq PO DAILY 05/29/16 Amlodipine Besylate [Norvasc -] 5 mg PO DAILY #30 tablet 06/05/16 Budesonide/Formeterol Fumarate [SYMBICORT 160/4.5mcg -] 2 puff IH BID #1 inhaler 06/05/16 Tiotropium [place] [Spiriva] 1 puff IH DAILY #1 inh 06/05/16 Prednisone 20 mg PO ASDIR #31 tablet 09/02/16 This patient is new to me today: No Emergency Visit: Yes ED Registration Date: 08/29/16 Care time: The patient presented to the Emergency Department on the above date and was hospitalized for further evaluation of their emergent condition. Critical Care patient: No - Discharge Referral Referred to [facility] No
== END 2016-09-02 14:46 | disposition home or self-care (01) | DRG 191 ==
LOC: JER 16:52 → JERBED 18:52 → J8W 08-30 00:13
PROVIDERS: ADMIT Family Medicine; ATTEND Nurse Practitioner Acute Care
DX: J44.1 Chronic obstructive pulmonary disease with (acute) exacerbation (principal); I50.30 Unspecified diastolic (congestive) heart failure; I11.0 Hypertensive heart disease with heart failure; I36.1 Nonrheumatic tricuspid (valve) insufficiency; I34.0 Nonrheumatic mitral (valve) insufficiency; Z86.718 Personal history of other venous thrombosis and embolism; M06.9 Rheumatoid arthritis, unspecified; I27.2 Other secondary pulmonary hypertension; G25.0 Essential tremor; R10.11 Right upper quadrant pain
CPT/HCPCS: 36415; 71010-TC; 71250-TC; 74000-TC; 76775-TC; 80048; 80053; 82436; 82550; 82570; 83735; 83880; 84100; 84133; 84300; 84443; 84484; 85025; 85027; 85610; 87205; 93005; 93010; 94640; 94761; 97116-GP; 97161-GP; 99284-25

== ENCOUNTER 2016-09-29 10:01 | Inpatient (IN) | payer OTHER, MEDICARE ==
[2016-09-29] MEDS ORDERED: methylPREDNISolone NA SUCC 125 MG/2 ML VIAL ONE (10:16)
[2016-09-29] MEDS ORDERED: ALBUTEROL SO4 2.5/IPRATROPIUM 0.5 INH SOL 3 ML VIAL.NEB. NEB ONE ×3 (10:16→10:37)
[2016-09-29] MEDS ORDERED: methylPREDNISolone NA SUCC 125 MG/2 ML VIAL IVPB ONE (10:36)
--- NOTE | 2016-09-29 10:48 | PDOC ---
History of Present Illness <Flores Dewey - Last Filed: 09/29/16 13:33> - General History Source: Patient Exam Limitations: No Limitations - History of Present Illness Initial Comments: 09/29/16 10:21 81-year-old female presents to the ED with complaints of shortness of breath, cough and chest tightness Worsening over the past week on relief with her nebulizer and inhalers. Patient states has history of rheumatoid lung disease, hypertension, DVT in May, IVC filter placement in May, heart failure, and COPD. Patient states has had previous admission secondary to COPD and is followed by Dr. Cisneros for pulmonology. Patient denies palpitations, fever, chills, weakness, calf tenderness, orthopnea, or increased lower extremity edema. Timing/Duration: reports: week Severity: reports: moderate Possible Cause: Yes: occasional episodes Modifying Factors: improves with: albuterol inhaler, albuterol nebulizer, coughing Associated Symptoms: reports: cough, shortness of breath, wheezing <Rebekah Flores - Last Filed: 09/30/16 09:07> - General Chief Complaint: Shortness of Breath Stated Complaint: SOB Time Seen by Provider: 09/29/16 10:18 Past History <Flores Dewey - Last Filed: 09/29/16 13:33> - Travel Traveled outside of the country in the last 30 days: No - Past Medical History Cardiac Disorders: Yes COPD: Yes (LUNG PROBLEMS) HTN: Yes Kidney Stones: Yes - Surgical History Cholecystectomy: Yes - Psycho/Social/Smoking Cessation Hx Anxiety: No Suicidal Ideation: No Smoking History: Never smoked Have you smoked in the past 12 months: No Information on smoking cessation initiated: No Hx Alcohol Use: No Drug/Substance Use Hx: No Substance Use Type: None Patient Lives Alone: Yes Lives with/in: lives alone <Rebekah Flores - Last Filed: 09/30/16 09:07> - Past Medical History Allergies/Adverse Reactions: Allergies Allergy/AdvReac Type Severity Reaction Status Date / Time No Known Allergies Allergy Verified 09/29/16 10:03 Home Medications: Ambulatory Orders Furosemide [Lasix -] 40 mg PO DAILY 05/29/16 Potassium Chloride 8 meq PO DAILY 05/29/16 Amlodipine Besylate [Norvasc -] 5 mg PO DAILY #30 tablet 06/05/16 Budesonide/Formeterol Fumarate [SYMBICORT 160/4.5mcg -] 2 puff IH BID #1 inhaler 06/05/16 Tiotropium [place] [Spiriva] 1 puff IH DAILY #1 inh 06/05/16 Review of Systems - Review of Systems Able to Perform ROS?: Yes Constitutional: No: Symptoms Reported HEENTM: No: Symptoms Reported Respiratory: Yes: Cough, Shortness of Breath, Wheezing Cardiac (ROS): Yes: Chest Tightness ABD/GI: No: Symptoms Reported : No: Symptoms Reported Musculoskeletal: No: Symptoms Reported Integumentary: No: Symptoms Reported Neurological: No: Symptoms reported Endocrine: No: Symptoms Reported Hematologic/Lymphatic: No: Symptoms Reported <Rebekah Flores - Last Filed: 09/30/16 09:07> *Physical Exam - Vital Signs Last Vital Signs Temp Pulse Resp BP Pulse Ox 97.9 F 93 H 22 149/74 96 09/29/16 10:03 09/29/16 10:30 09/29/16 10:30 09/29/16 10:30 09/29/16 10:30 <Flores Dewey - Last Filed: 09/29/16 13:33> - Vital Signs Last Vital Signs Temp Pulse Resp BP Pulse Ox 97.9 F 92 H 26 H 150/90 98 09/29/16 10:03 09/29/16 10:03 09/29/16 10:03 09/29/16 10:03 09/29/16 10:29 - Physical Exam General Appearance: Yes: Nourished, Appropriately Dressed. No: Apparent Distress HEENT: positive: EOMI, [place]. negative: Pale Conjunctivae Neck: positive: Supple Respiratory/Chest: positive: Accessory Muscle Use (intercostal), Wheezing ( expiratory vinod. ) Cardiovascular: positive: Regular Rhythm, Regular Rate. negative: Murmur Gastrointestinal/Abdominal: positive: Soft. negative: Tenderness Musculoskeletal: negative: CVA Tenderness Extremity: positive: Normal Capillary Refill, Pedal Edema (1-2+ nonpitting) Integumentary: positive: Normal Color, Warm, Moist Neurologic: positive: Normal Mood/Affect, Motor Strength 5/5 (ambulatory) <Rebekah Flores - Last Filed: 09/30/16 09:07> Heart Score/ECG Review - History History: Slightly suspicious - Electrocardiogram EKG: Normal - Age Age: >/= 65 - Risk Factors Risk Factors Heart Score: Yes Hx Hypertension Based on the list above the patient has:: 1-2 risk factors - Troponin Troponin: </= normal limit - Score Heart Score - Total: 3 - ECG Intrepretation Rhythm: Regular Rhythm (normal sinus rhythm at 87. No acute findings) <Rebekah Flores - Last Filed: 09/30/16 09:07> ED Treatment Course - LABORATORY CBC & Chemistry Diagram: 09/29/16 10:40 09/29/16 10:40 - ADDITIONAL ORDERS Additional order review: Laboratory Results 09/29/16 09/29/16 09/29/16 10:40 10:40 10:40 INR 0.94 Sodium 143 Potassium 3.9 Chloride 107 Carbon Dioxide 27 Anion Gap 9 BUN 11 D Creatinine 0.9 D Creat Clearance w eGFR 59.80 Random Glucose 92 D Calcium 8.6 Magnesium 2.2 Total Bilirubin 0.8 D AST 17 D ALT 11 L D Alkaline Phosphatase 79 Creatine Kinase 36 Troponin I < 0.02 Total Protein 6.1 L Albumin 3.2 L 09/29/16 10:40 RBC 4.15 D MCV 82.9 MCHC 31.7 L RDW 16.6 H MPV 7.4 L Neutrophils % 54.8 D Lymphocytes % 25.0 D Monocytes % 12.7 H D Eosinophils % 6.6 H D Basophils % 0.9 D - Medications Given in the ED: ED Medications Discontinued Medications Generic Name Dose Route Start Last Admin Trade Name Freq PRN Reason Stop Dose Admin Albuterol/Ipratropium 1 amp 09/29/16 10:36 09/29/16 10:10 Duoneb - NEB 09/29/16 10:37 1 amp ONCE ONE Administration Albuterol/Ipratropium 1 amp 09/29/16 10:37 09/29/16 10:30 Duoneb - NEB 09/29/16 10:38 1 amp ONCE ONE Administration Methylprednisolone Sodium Succinate 125 mg 09/29/16 10:36 09/29/16 10:20 Solu-Medrol - IVPB 09/29/16 10:37 125 mg ONCE ONE Administration <Flores Dewey - Last Filed: 09/29/16 13:33> - LABORATORY CBC & Chemistry Diagram: 09/29/16 10:40 09/29/16 10:40 - RADIOLOGY Radiology Studies Ordered: Category Date Time Status CHEST X-RAY PORTABLE* [RAD] Stat Radiology 09/29/16 10:36 Ordered <SandraShelby - Last Filed: 09/30/16 09:07> Medical Decision Making - Critical Care Time Total Critical Care Time (minutes): 40 Critical Care Statement: The care of this patient involved high complexity decision making to prevent further life threatening deterioration of the patient 's condition and/or to evalute & treat vital organ system(s) failure or risk of failure. - Medical Decision Making 09/29/16 10:38 Patient with complaints of shortness of breath and wheezing and chest tightness for over the past week unrelieved with her inhalers and nebulizers. Patient arrives dyspneic using accessory muscles satting at 98% on room air. Patient on exam had audible wheezing bilateral. Patient was not diaphoretic or pale. Patient concerning for COPD exacerbation versus DHF versus ACS. Patient ordered for cardiac profile, CBC, comp, coags, chest x-ray, DuoNeb 2, steroids, oxygen therapy cardiac morning IV access. 09/29/16 13:19 Laboratory Tests 09/29/16 09/29/16 09/29/16 10:40 10:40 10:40 WBC 4.6 D Hgb 10.9 D Hct 34.4 D Plt Count 215 Neutrophils % 54.8 D Monocytes % 12.7 H D INR 0.94 Sodium Potassium Chloride Carbon Dioxide Anion Gap BUN Creatinine Creat Clearance w eGFR Random Glucose Calcium Magnesium Total Bilirubin AST ALT Troponin I < 0.02 09/29/16 10:40 WBC Hgb Hct Plt Count Neutrophils % Monocytes % INR Sodium 143 Potassium 3.9 Chloride 107 Carbon Dioxide 27 Anion Gap 9 BUN 11 D Creatinine 0.9 D Creat Clearance w eGFR 59.80 Random Glucose 92 D Calcium 8.6 Magnesium 2.2 Total Bilirubin 0.8 D AST 17 D ALT 11 L D Troponin I Patient states feeling somewhat better after receiving the medication. Patient was then ambulated to the bathroom which is approximately [address] patient became dyspneic and inability to speak more than 3 words. Patient began to have a dry hacking cough. Patient was given another DuoNeb and placed on O2 sat monitoring where she was noted to have a sat of 98%. Patient also stated with audible expiratory wheezing. Patient will be admitted to Dr. Tracey. Case discussed with Dr. Brantley and associate of Dr. Cisneros will consult on patient. family at bedside and agrees with plan. 09/29/16 13:[address] Tracey and will admit to [facility]. She also states will place consult in for Dr. Cisneros. <Rebekah Flores - Last Filed: 09/30/16 09:07> *DC/Admit/Observation/Transfer <Flores Dewey - Last Filed: 09/29/16 13:33> - Discharge Dispostion Admit: Yes <Rebekah Flores - Last Filed: 09/30/16 09:07> Diagnosis at time of Disposition: Dyspnea on exertion COPD (chronic obstructive pulmonary disease) Qualifiers: COPD type: COPD with acute exacerbation Qualified Code(s): J44.1 - Chronic obstructive pulmonary disease with (acute) exacerbation
--- NOTE | 2016-09-29 10:55 | PDOC ---
*Physical Exam - Vital Signs Last Vital Signs Temp Pulse Resp BP Pulse Ox 97.9 F 92 H 26 H 150/90 98 09/29/16 10:03 09/29/16 10:03 09/29/16 10:03 09/29/16 10:03 09/29/16 10:29 ED Treatment Course - LABORATORY CBC & Chemistry Diagram: 09/29/16 10:40 09/29/16 10:40 Medical Decision Making - Medical Decision Making 09/29/16 10:55 Pt seen by the Advanced Practice Provider under my direct supervision Ancillary studies reviewed I agree with plan as outlined by the Advanced Practice Provider MIKEL Flores *DC/Admit/Observation/Transfer Diagnosis at time of Disposition: COPD (chronic obstructive pulmonary disease), Dyspnea on exertion
[2016-09-29 10:59] LABS: BASOPHIL 0.9 % (0-2.0); EOSINOPHIL 6.6 % (0-4.5); MCH 26.3 pg (25.7-33.7); MCHC 31.7 g/dl (32.0-36.0); MEAN CELL VOLUME 82.9 fl (80-96); MEAN PLT VOLUME 7.4 fl (7.5-11.1); NEUTROPHILS 54.8 % (42.8-82.8); PLATELET COUNT 215 K/MM3 (134-434); RDW 16.6 % (11.6-15.6); WHITE BLOOD COUNT 4.6 K/mm3 (4.0-10.0)
[2016-09-29 11:18] LABS: INR 0.94 (0.82-1.09); PROTHROMBIN TIME (PATIENT) 10.3 SEC (9.98-11.88)
[2016-09-29 11:30] LABS: TROPONIN I < 0.02 ng/ml (0.00-0.05)
[2016-09-29 11:38] LABS: ALBUMIN 3.2 g/dl (3.4-5.0); ALK PHOS 79 U/L (45-117); ANION GAP 9 (8-16); BILIRUBIN,TOTAL 0.8 mg/dL (0.2-1.0); CALCIUM 8.6 mg/dL (8.5-10.1); CO2 27 mmol/L (21-32); CREATININE 0.9 mg/dL (0.55-1.02); GLUCOSE,RANDOM 92 mg/dL (74-106); MAGNESIUM 2.2 mg/dL (1.8-2.4); SGOT/AST 17 U/L (15-37); SGPT/ALT 11 U/L (12-78); TOT PROT 6.1 g/dl (6.4-8.2)
[2016-09-29] MEDS ORDERED: DOCUSATE SODIUM 100 MG CAPSULE (FP) PO PRN (14:40)
[2016-09-29 15:59] VITALS: BMI 26.0
[2016-09-29] MEDS: PANTOPRAZOLE 40 MG TABLET (FP) PO SCH (16:28)
[2016-09-29] MEDS: methylPREDNISolone NA SUCC 125 MG/2 ML VIAL IVPB SCH ×2 (16:28→21:49)
[2016-09-29] MEDS: ALBUTEROL SO4 2.5/IPRATROPIUM 0.5 INH SOL 3 ML VIAL.NEB. NEB SCH ×2 (17:58→23:12)
[2016-09-29] MEDS ORDERED: INSULIN (NOVOLOG) ASPART 100 UNITS/ML 10ML VIAL SQ ONE (19:30)
[2016-09-29 20:26] LABS: URINE APPEARANCE CLEAR; URINE BILIRUBIN NEGATIVE (NEGATIVE); URINE BLOOD 1+ (NEGATIVE); URINE COLOR LTYELLOW; URINE GLUCOSE (UA) 3+ (NEGATIVE); URINE KETONE NEGATIVE (NEGATIVE); URINE LEUK ESTERASE NEGATIVE (NEGATIVE); URINE NITRITE NEGATIVE (NEGATIVE); URINE PROTEIN NEGATIVE (NEGATIVE); URINE UROBILINOGEN NEGATIVE E.U./dl (0.2-1.0)
[2016-09-29 20:29] LABS: URINE RBC <1 /hpf (0-3); URINE WBC <1 /hpf (3-5)
[2016-09-29] MEDS: BUDESONIDE/FORMETEROL FUMARATE 160/4.5 mcg INHALER IH SCH (21:49)
[2016-09-30] MEDS: methylPREDNISolone NA SUCC 125 MG/2 ML VIAL IVPB SCH ×3 (02:53→15:07)
[2016-09-30] MEDS ORDERED: INSULIN (NOVOLOG) ASPART 100 UNITS/ML 10ML VIAL SQ ONE (05:30)
[2016-09-30] MEDS: ALBUTEROL SO4 2.5/IPRATROPIUM 0.5 INH SOL 3 ML VIAL.NEB. NEB SCH ×4 (06:43→23:29)
[2016-09-30 09:01] LABS: MCH 26.1 pg (25.7-33.7); MCHC 31.5 g/dl (32.0-36.0); MEAN CELL VOLUME 82.6 fl (80-96); MEAN PLT VOLUME 7.4 fl (7.5-11.1); PLATELET COUNT 223 K/MM3 (134-434); RDW 16.2 % (11.6-15.6); WHITE BLOOD COUNT 8.9 K/mm3 (4.0-10.0)
[2016-09-30 09:14] LABS: ANION GAP 12 (8-16); CALCIUM 8.8 mg/dL (8.5-10.1); CO2 23 mmol/L (21-32); CREATININE 1.2 mg/dL (0.55-1.02); GLUCOSE,RANDOM 219 mg/dL (74-106); MAGNESIUM 2.3 mg/dL (1.8-2.4); PHOSPHOROUS 3.1 mg/dL (2.5-4.9)
[2016-09-30] MEDS: PANTOPRAZOLE 40 MG TABLET (FP) PO SCH (09:16)
[2016-09-30] MEDS: FUROSEMIDE 40 MG TABLET (FP) PO SCH (09:16)
[2016-09-30] MEDS: amLODIPine BESYLATE 5 MG TABLET (FP) PO SCH (09:16)
[2016-09-30] MEDS ORDERED: PT OWN MED DRAWER 7, Y5N ONE (09:20)
[2016-09-30] MEDS: BUDESONIDE/FORMETEROL FUMARATE 160/4.5 mcg INHALER IH SCH ×2 (09:20→21:58)
[2016-09-30] MEDS: POLYETHYLENE GLYCOL 3350 119 GM BTL PO SCH (09:21)
[2016-09-30] MEDS ORDERED: TIOTROPIUM BROMIDE 18 MCG/INH (DEVICE W/ 5 CAPSULES) IH SCH (10:00)
[2016-09-30] MEDS: SUCRALFATE 1 GM/10 ML UNIT DOSE CUPS PO SCH ×3 (13:02→21:58)
[2016-09-30] MEDS: INSULIN SLIDING SCALE (NOVOLOG) 1 VIAL SQ SCH (16:52)
--- NOTE | 2016-09-30 16:53 | CON.PULM ---
Consult Consult Specialty:: PULM/CCM Referred by:: SANIYA Reason for Consultation:: SOB - History of Present Illness Chief Complaint: SOB History of Present Illness: 81 F, HTN, DVT S/P IVC Filter placement not on AC due to recurrent severe diverticular bleeding, rhematoid lung, CHF, and O2 dependent COPD since 05/2016 due to previous smoking history. Admitted via the ER due to progressive SOB And MCKEON over the past several days. No travel history or sick contacts. No fever or chills. No night sweats or hemoptysis. CXR : No acute process CT : & 2016 : Emphysema / bibasilar and mid-ling zone bronchiectasis and atelectasis - History Source History Provided By: Patient Limitations to Obtaining History: No Limitations - Past Medical History Cardio/Vascular: Yes: HTN Pulmonary: Yes: COPD, O2 Dependent, Other (progresive SOB) ...: No Musculoskeletal: Yes: Osteoarthritis - Past Surgical History Past Surgical History: Yes: Arthrosocopy, Cholecystectomy, Hysterectomy, Joint Replacement - Alcohol/Substance Use Hx Alcohol Use: No History of Substance Use: reports: None - Smoking History Smoking history: Never smoked Have you smoked in the past 12 months: No - Social History ADL: Family Assistance History of Recent Travel: No Home Medications - Allergies Allergies/Adverse Reactions: Allergies Allergy/AdvReac Type Severity Reaction Status Date / Time No Known Allergies Allergy Verified 09/29/16 10:03 - Home Medications Home Medications: Ambulatory Orders Furosemide [Lasix -] 40 mg PO DAILY 05/29/16 Potassium Chloride 8 meq PO DAILY 05/29/16 Amlodipine Besylate [Norvasc -] 5 mg PO DAILY #30 tablet 06/05/16 Budesonide/Formeterol Fumarate [SYMBICORT 160/4.5mcg -] 2 puff IH BID #1 inhaler 06/05/16 Tiotropium [place] [Spiriva] 1 puff IH DAILY #1 inh 06/05/16 Review of Systems - Review of Systems Constitutional: reports: Malaise, Weakness. denies: Chills, Fever, Night Sweats Eyes: reports: No Symptoms HENT: reports: No Symptoms Neck: reports: No Symptoms Cardiovascular: reports: Shortness of Breath. denies: Chest Pain, Edema, Palpitations Respiratory: reports: Cough, SOB, SOB on Exertion, Wheezing. denies: Hemoptysis Gastrointestinal: reports: Dysphagia, Indigestion Genitourinary: reports: No Symptoms Breasts: reports: No Symptoms Reported Musculoskeletal: reports: No Symptoms Integumentary: reports: No Symptoms Neurological: reports: No Symptoms Endocrine: reports: No Symptoms Hematology/Lymphatic: reports: No Symptoms Psychiatric: reports: No Symptoms Physical Exam Vital Sings: Vital Signs Temperature 98.1 F 09/30/16 14:59 Pulse Rate 99 H 09/30/16 14:59 Respiratory Rate 22 09/30/16 14:59 Blood Pressure 147/81 09/30/16 14:59 O2 Sat by Pulse Oximetry (%) 98 09/29/16 21:00 Constitutional: Yes: No Distress, Obese, Other (Mildly tachypneic at rest ). No : Diaphoresis, Pallor Eyes: Yes: Conjunctiva Clear, EOM Intact HENT: Yes: Atraumatic, Normocephalic Neck: Yes: Supple, Trachea Midline Cardiovascular: Yes: Regular Rate and Rhythm Respiratory: Yes: Cough, On Nasal O2, Rhonchi, SOB, Tachypnea, Wheezes. No: Accessory Muscle Use, Rales, Stridor ...Inspection: Yes: WNL ...Clubbing: No Gastrointestinal: Yes: Normal Bowel Sounds, Soft, Abdomen, Obese Renal/: Yes: WNL Musculoskeletal: Yes: WNL Extremities: Yes: WNL Edema: No Peripheral Pulses WNL: Yes Integumentary: Yes: WNL Neurological: Yes: WNL, Alert, Babinski negative ...Motor Strength: WNL Psychiatric: Yes: WNL, Alert, Oriented Labs: CBC, BMP 09/30/16 08:00 09/30/16 08:00 Imaging - Results Chest X-ray: Report Reviewed, Image Reviewed Problem List - Problems (1) Dyspnea on exertion Code(s): R06.09 - OTHER FORMS OF DYSPNEA (2) Acute exacerbation of chronic obstructive pulmonary disease Code(s): J44.1 - CHRONIC OBSTRUCTIVE PULMONARY DISEASE W (ACUTE) EXACERBATION (3) Deep venous thrombosis of left popliteal vein Code(s): I82.432 - ACUTE EMBOLISM AND THROMBOSIS OF LEFT POPLITEAL VEIN Qualifiers: Chronicity: acute Qualified Code(s): I82.432 - Acute embolism and thrombosis of left popliteal vein (4) Essential tremor Code(s): G25.0 - ESSENTIAL TREMOR (5) HTN (hypertension) Code(s): I10 - ESSENTIAL (PRIMARY) HYPERTENSION (6) Pulmonary hypertension Code(s): I27.2 - OTHER SECONDARY PULMONARY HYPERTENSION (7) Ventricular diastolic dysfunction determined by echocardiography Code(s): I51.9 - HEART DISEASE, UNSPECIFIED Assessment/Plan Symbicort BID O2 as needed IV Medrol BD TX standing and PRN Agree that we should monitor off ABX for now Lasix Will follow Thank you. Dr Brantley
[2016-09-30] MEDS ORDERED: ALBUTEROL SO4 0.083% IH SOL 2.5 MG/3 ML VIAL.NEB. NEB PRN (17:02)
--- NOTE | 2016-09-30 21:31 | EKG ---
Test Reason : Blood Pressure : / mmHG Vent. Rate : 087 BPM Atrial Rate : 087 BPM P-R Int : 150 ms QRS Dur : 070 ms QT Int : 356 ms P-R-T Axes : 029 004 045 degrees QTc Int : 428 ms NORMAL SINUS RHYTHM NORMAL ECG WHEN COMPARED WITH ECG OF 29-AUG-2016 17:05, NO SIGNIFICANT CHANGE WAS FOUND Confirmed by HAROLDO DOMINGUEZ MD ([id number]) on 09/30/2016 9:31:46 PM Referred By: Confirmed By:HAROLDO DOMINGUEZ MD
[2016-09-30] MEDS: methylPREDNISolone NA SUCC 40 MG/1 ML VIAL IVPB SCH (21:58)
[2016-09-30] MEDS: guaiFENesin 600 MG TABLET.ER (FP) PO SCH (21:58)
--- NOTE | 2016-09-30 22:20 | HP ---
Admitting History and Physical - Admission Chief Complaint: dyspnea History of Present Illness: 81-year-old female presents to the ED with complaints of shortness of breath, cough and chest tightness Worsening over the past week some relief with her nebulizer and inhalers. Worse on the morning of admission, states she felt so bad "she couldn't move" so she got into the car and drove herself to the hospital. 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 Patient states has had previous admission secondary to COPD. She also has hx of extensive diverticular bleed for which she required 17 units of PRBC approximately 1 yr ago. Patient denies palpitations, fever, chills, weakness, calf tenderness, orthopnea, or increased lower extremity edema History Source: Patient, Family Member, Medical Record Limitations to Obtaining History: No Limitations - Past Medical History CLINICAL SUPPORT NURSE: No: Alzheimer's, CVA, Dementia, Migraine, Multiple Sclerosis, Peripheral Neuropathy, Parkinson's, Seizure, Syncope, TIA, Vertigo, Other Cardiovascular: Yes: HTN Pulmonary: Yes: COPD, O2 Dependent, Other (progresive SOB / rheumatoid Lung) Gastrointestinal: Yes: Diverticulosis, Other (lower GI bleed -- presume Diverticular bleed requiring 18 units of blood) Renal/: No: Renal Failure, Renal Inusuff, BPH, Cancer, Hematuria, Hemodialysis , Neurogenic Bladder, Renal Calculi, UTI, Other Reproductive: Yes: Postmenopausal ...: No Heme/Onc: Yes: Other (bleeding disorder ?? unclear stated had GI bleed that required 18 unit of blood ???) Musculoskeletal: Yes: Osteoarthritis - Past Surgical History Past Surgical History: Yes: Arthrosocopy, Cholecystectomy, Hysterectomy, Joint Replacement - Smoking History Smoking history: Former smoker Have you smoked in the past 12 months: No - Alcohol/Substance Use Hx Alcohol Use: No History of Substance Use: reports: None - Social History Usual Living Arrangement: Yes: Alone ADL: Family Assistance History of Recent Travel: No Home Medications - Allergies Allergies/Adverse Reactions: Allergies Allergy/AdvReac Type Severity Reaction Status Date / Time No Known Allergies Allergy Verified 09/29/16 10:03 - Home Medications Home Medications: Ambulatory Orders Furosemide [Lasix -] 40 mg PO DAILY 05/29/16 Potassium Chloride 8 meq PO DAILY 05/29/16 Amlodipine Besylate [Norvasc -] 5 mg PO DAILY #30 tablet 06/05/16 Budesonide/Formeterol Fumarate [SYMBICORT 160/4.5mcg -] 2 puff IH BID #1 inhaler 06/05/16 Tiotropium [place] [Spiriva] 1 puff IH DAILY #1 inh 06/05/16 Review of Systems - Review of Systems Constitutional: reports: No Symptoms Eyes: reports: No Symptoms HENT: reports: No Symptoms, Ringing in Ears Neck: reports: No Symptoms Cardiovascular: reports: No Symptoms, Shortness of Breath Respiratory: reports: Cough, SOB, SOB on Exertion Gastrointestinal: reports: No Symptoms Genitourinary: reports: No Symptoms Breasts: reports: No Symptoms Reported Musculoskeletal: reports: No Symptoms Integumentary: reports: No Symptoms Neurological: reports: No Symptoms Physical Examination Vital Signs: Vital Signs Temperature 97.5 F L 09/30/16 18:30 Pulse Rate 107 H 09/30/16 18:30 Respiratory Rate 22 09/30/16 18:30 Blood Pressure 137/77 09/30/16 18:30 O2 Sat by Pulse Oximetry (%) 98 09/29/16 21:00 Constitutional: Yes: Well Nourished, Mild Distress Eyes: Yes: WNL, Conjunctiva Clear, Other (injected /purulent d/c left eye) HENT: Yes: WNL, Atraumatic Neck: Yes: WNL, Supple, Trachea Midline Cardiovascular: Yes: WNL, Regular Rate and Rhythm Respiratory: Yes: CTA Bilaterally, Cough, Diminished, On Nasal O2 Gastrointestinal: Yes: WNL, Normal Bowel Sounds, Soft, Abdomen, Obese Renal/: Yes: WNL Breast(s): Yes: WNL Musculoskeletal: Yes: WNL Extremities: Yes: WNL Edema: No Peripheral Pulses: Left Radial: 1+, Right Radial: 1+, Left Doralis Pedis: 1+, Right Dorsalis Pedis: 1+, Left Femoral: 1+, Right Femoral: 1+ Integumentary: Yes: WNL Neurological: Yes: WNL, Alert, Oriented Psychiatric: Yes: Alert, Oriented Labs: CBC, BMP 09/30/16 08:00 09/30/16 08:00 Problem List - Problems (1) COPD (chronic obstructive pulmonary disease) Assessment/Plan: nebulizer / IV steroids / inhaled steroids / singulair pulmonary consult O2 continued Code(s): J44.9 - CHRONIC OBSTRUCTIVE PULMONARY DISEASE, UNSPECIFIED Qualifiers : COPD type: COPD with acute exacerbation Qualified Code(s): J44.1 - Chronic obstructive pulmonary disease with (acute) exacerbation (2) Dyspnea on exertion Code(s): R06.09 - OTHER FORMS OF DYSPNEA (3) Acute exacerbation of chronic obstructive pulmonary disease Code(s): J44.1 - CHRONIC OBSTRUCTIVE PULMONARY DISEASE W (ACUTE) EXACERBATION (4) Chest pain Code(s): R07.9 - CHEST PAIN, UNSPECIFIED (5) Dyspnea Code(s): R06.00 - DYSPNEA, UNSPECIFIED (6) HTN (hypertension) Code(s): I10 - ESSENTIAL (PRIMARY) HYPERTENSION
[2016-10-01] MEDS: methylPREDNISolone NA SUCC 40 MG/1 ML VIAL IVPB SCH ×4 (02:50→21:38)
[2016-10-01] MEDS: SUCRALFATE 1 GM/10 ML UNIT DOSE CUPS PO SCH ×4 (06:18→21:40)
[2016-10-01] MEDS: TOBRAMYCIN 0.3% OPHTH SOLN 5 ML BOTTLE OD SCH ×5 (06:18→21:41)
[2016-10-01] MEDS: INSULIN SLIDING SCALE (NOVOLOG) 1 VIAL SQ SCH ×2 (06:21→18:07)
[2016-10-01] MEDS: ALBUTEROL SO4 2.5/IPRATROPIUM 0.5 INH SOL 3 ML VIAL.NEB. NEB SCH ×4 (06:41→23:43)
[2016-10-01 07:26] LABS: BASOPHIL 0.2 % (0-2.0); MCH 26.4 pg (25.7-33.7); MEAN CELL VOLUME 82.3 fl (80-96); MEAN PLT VOLUME 7.5 fl (7.5-11.1); NEUTROPHILS 93.1 % (42.8-82.8); PLATELET COUNT 245 K/MM3 (134-434); RDW 16.6 % (11.6-15.6); WHITE BLOOD COUNT 10.3 K/mm3 (4.0-10.0)
[2016-10-01 08:08] LABS: ANION GAP 11 (8-16); CALCIUM 8.6 mg/dL (8.5-10.1); CO2 25 mmol/L (21-32); CREATININE 1.1 mg/dL (0.55-1.02); GLUCOSE,RANDOM 149 mg/dL (74-106); MAGNESIUM 2.1 mg/dL (1.8-2.4)
[2016-10-01] MEDS ORDERED: PT OWN MED DRAWER 7, Y5N ONE ×2 (09:20→20:46)
[2016-10-01] MEDS: PANTOPRAZOLE 40 MG TABLET (FP) PO SCH (09:29)
[2016-10-01] MEDS: amLODIPine BESYLATE 5 MG TABLET (FP) PO SCH (09:29)
[2016-10-01] MEDS: FUROSEMIDE 40 MG TABLET (FP) PO SCH (09:29)
[2016-10-01] MEDS: POLYETHYLENE GLYCOL 3350 119 GM BTL PO SCH (09:30)
[2016-10-01] MEDS: BUDESONIDE/FORMETEROL FUMARATE 160/4.5 mcg INHALER IH SCH ×2 (09:32→21:41)
[2016-10-01] MEDS: guaiFENesin 600 MG TABLET.ER (FP) PO SCH ×2 (09:33→21:40)
--- NOTE | 2016-10-01 12:30 | PN ---
Progress Note (short form) - Note Progress Note: PULMONARY WELL KNOWN BY OUR SERVICE SUBJECTIVE IMPROVEMENT VSS/AFEBRILE ANICTERIC SCATTERED RHONCHI S1S2 BS+ NO EDEMA LABS/MEDS/NOTES/IMAGING REVIEWED (1) Dyspnea on exertion Code(s): R06.09 - OTHER FORMS OF DYSPNEA (2) Acute exacerbation of chronic obstructive pulmonary disease Code(s): J44.1 - CHRONIC OBSTRUCTIVE PULMONARY DISEASE W (ACUTE) EXACERBATION (3) Deep venous thrombosis of left popliteal vein Code(s): I82.432 - ACUTE EMBOLISM AND THROMBOSIS OF LEFT POPLITEAL VEIN Qualifiers: Chronicity: acute Qualified Code(s): I82.432 - Acute embolism and thrombosis of left popliteal vein (4) Essential tremor Code(s): G25.0 - ESSENTIAL TREMOR (5) HTN (hypertension) Code(s): I10 - ESSENTIAL (PRIMARY) HYPERTENSION (6) Pulmonary hypertension Code(s): I27.2 - OTHER SECONDARY PULMONARY HYPERTENSION (7) Ventricular diastolic dysfunction determined by echocardiography Code(s): I51.9 - HEART DISEASE, UNSPECIFIED Assessment/Plan Symbicort BID O2 as needed IV Medrol tapering BD TX standing and PRN Agree that we should monitor off ABX for now Lasix Will follow Poonam TITUS MD
[2016-10-02] MEDS: methylPREDNISolone NA SUCC 40 MG/1 ML VIAL IVPB SCH ×3 (02:00→22:06)
[2016-10-02] MEDS: ALBUTEROL SO4 2.5/IPRATROPIUM 0.5 INH SOL 3 ML VIAL.NEB. NEB SCH ×4 (06:51→23:30)
[2016-10-02] MEDS: TOBRAMYCIN 0.3% OPHTH SOLN 5 ML BOTTLE OD SCH ×5 (07:00→22:08)
[2016-10-02] MEDS: SUCRALFATE 1 GM/10 ML UNIT DOSE CUPS PO SCH ×4 (07:00→22:05)
[2016-10-02] MEDS: INSULIN SLIDING SCALE (NOVOLOG) 1 VIAL SQ SCH ×2 (07:00→17:18)
[2016-10-02] MEDS ORDERED: PT OWN MED DRAWER 7, Y5N ONE ×2 (09:54→20:28)
[2016-10-02] MEDS: POLYETHYLENE GLYCOL 3350 119 GM BTL PO SCH (10:08)
[2016-10-02] MEDS: FUROSEMIDE 40 MG TABLET (FP) PO SCH (10:08)
[2016-10-02] MEDS: guaiFENesin 600 MG TABLET.ER (FP) PO SCH ×2 (10:08→22:05)
[2016-10-02] MEDS: PANTOPRAZOLE 40 MG TABLET (FP) PO SCH (10:08)
[2016-10-02] MEDS: amLODIPine BESYLATE 5 MG TABLET (FP) PO SCH (10:08)
[2016-10-02] MEDS: BUDESONIDE/FORMETEROL FUMARATE 160/4.5 mcg INHALER IH SCH ×2 (10:09→22:08)
--- NOTE | 2016-10-02 12:15 | PN ---
Progress Note (short form) - Note Progress Note: Was able to ambulate down the [place] yesterday. Breathing is improving. Feels like she is returning close to her baseline. Intake & Output 09/29/16 09/30/16 10/01/16 10/02/16 23:59 23:59 23:59 23:59 Intake Total 500 1350 1870 170 Balance 500 1350 1870 170 Weight 167 lb 4.8 oz Last Vital Signs Temp Pulse Resp BP Pulse Ox 97.9 F 83 20 124/63 99 10/02/16 06:10 10/02/16 06:10 10/02/16 06:10 10/02/16 06:10 10/01/16 21:00 Active Medications Albuterol Sulfate (Ventolin 0.083% Nebulizer Soln -) 1 amp NEB Q4H PRN PRN Reason: SHORT OF BREATH/WHEEZING Albuterol/Ipratropium (Duoneb -) 1 amp NEB QIDR [facility] Last Admin: 10/02/16 06:51 Dose: 1 amp Amlodipine Besylate (Norvasc -) 5 mg PO DAILY [facility] Last Admin: 10/02/16 10:08 Dose: 5 mg Budesonide/Formoterol Fumarate (Symbicort 160/4.5mcg -) 2 puff IH BID [facility] Last Admin: 10/02/16 10:09 Dose: 2 puff Docusate Sodium (Colace -) 100 mg PO BID PRN PRN Reason: CONSTIPATION Furosemide (Lasix -) 40 mg PO DAILY [facility] Last Admin: 10/02/16 10:08 Dose: 40 mg Guaifenesin (Mucinex -) 600 mg PO BID [facility] Last Admin: 10/02/16 10:08 Dose: 600 mg Insulin Aspart (Novolog Vial Sliding Scale -) 1 vial SQ BIDAC [facility] PRN Reason: Protocol Last Admin: 10/02/16 07:00 Dose: Not Given Methylprednisolone Sodium Succinate (Solu-Medrol -) 40 mg IVPB Q6H-IV [facility] Last Admin: 10/02/16 10:08 Dose: 40 mg Pantoprazole Sodium (Protonix -) 40 mg PO DAILY [facility] Last Admin: 10/02/16 10:08 Dose: 40 mg Polyethylene Glycol (Miralax (For Daily Use) -) 17 gm PO DAILY [facility] Last Admin: 10/02/16 10:08 Dose: Not Given Sucralfate (Carafate Oral Suspension -) 1 gm PO ACHS [facility] Last Admin: 10/02/16 10:09 Dose: 1 gm Tobramycin Sulfate (Tobrex Ophthalmic Solution -) 1 drop OD Q4HWA [facility] Stop: 10/03/16 23:59 Last Admin: 10/02/16 10:09 Dose: 1 drop Constitutional: Yes: No Distress, Obese, Less tachypneic at rest ). No: Diaphoresis, Pallor Eyes: Yes: Conjunctiva Clear, EOM Intact HENT: Yes: Atraumatic, Normocephalic Neck: Yes: Supple, Trachea Midline Cardiovascular: Yes: Regular Rate and Rhythm Respiratory: Yes: Cough, On Nasal O2, few scattered Rhonchi, Less Wheezes. No: Accessory Muscle Use, Rales, Stridor ...Inspection: Yes: WNL ...Clubbing: No Gastrointestinal: Yes: Normal Bowel Sounds, Soft, Abdomen, Obese Renal/: Yes: WNL Musculoskeletal: Yes: WNL Extremities: Yes: WNL Edema: No Peripheral Pulses WNL: Yes Integumentary: Yes: WNL Neurological: Yes: WNL, Alert, Babinski negative ...Motor Strength: WNL Psychiatric: Yes: WNL, Alert, Oriented Labs: Laboratory Results - last 24 hr 10/01/16 10/02/16 18:04 06:59 POC Glucometer 196 122 Problem List - Problems (1) Dyspnea on exertion Code(s): R06.09 - OTHER FORMS OF DYSPNEA (2) Acute exacerbation of chronic obstructive pulmonary disease Code(s): J44.1 - CHRONIC OBSTRUCTIVE PULMONARY DISEASE W (ACUTE) EXACERBATION (3) Deep venous thrombosis of left popliteal vein Code(s): I82.432 - ACUTE EMBOLISM AND THROMBOSIS OF LEFT POPLITEAL VEIN Qualifiers: Chronicity: acute Qualified Code(s): I82.432 - Acute embolism and thrombosis of left popliteal vein (4) Essential tremor Code(s): G25.0 - ESSENTIAL TREMOR (5) HTN (hypertension) Code(s): I10 - ESSENTIAL (PRIMARY) HYPERTENSION (6) Pulmonary hypertension Code(s): I27.2 - OTHER SECONDARY PULMONARY HYPERTENSION (7) Ventricular diastolic dysfunction determined by echocardiography Code(s): I51.9 - HEART DISEASE, UNSPECIFIED Assessment/Plan Symbicort BID O2 as needed Taper IV Medrol BD TX standing and PRN Monitor off ABX Lasix Ambulate as tolerated Dr Brantley Problem List - Problems (1) Dyspnea on exertion Code(s): R06.09 - OTHER FORMS OF DYSPNEA (2) Acute exacerbation of chronic obstructive pulmonary disease Code(s): J44.1 - CHRONIC OBSTRUCTIVE PULMONARY DISEASE W (ACUTE) EXACERBATION (3) Deep venous thrombosis of left popliteal vein Code(s): I82.432 - ACUTE EMBOLISM AND THROMBOSIS OF LEFT POPLITEAL VEIN Qualifiers: Chronicity: acute Qualified Code(s): I82.432 - Acute embolism and thrombosis of left popliteal vein (4) Essential tremor Code(s): G25.0 - ESSENTIAL TREMOR (5) HTN (hypertension) Code(s): I10 - ESSENTIAL (PRIMARY) HYPERTENSION (6) Pulmonary hypertension Code(s): I27.2 - OTHER SECONDARY PULMONARY HYPERTENSION (7) Ventricular diastolic dysfunction determined by echocardiography Code(s): I51.9 - HEART DISEASE, UNSPECIFIED
[2016-10-02] MEDS ORDERED: methylPREDNISolone NA SUCC 40 MG/1 ML VIAL IVPB SCH (12:30)
--- NOTE | 2016-10-02 17:16 | PN ---
Progress Note (short form) - Note Progress Note: seen and examined in her room in bed still mildly dyspneic at rest no fever or chills Vital Signs Period Temp Pulse Resp BP Sys/Calvillo Pulse Ox Last 24 Hr 97.7 F-97.9 F 83-102 16-20 121-140/58-68 98-99 neck supple heart reg lung some scattered rhonchi abd soft non tender ext no calf tenderness CBC, BMP 10/01/16 06:35 10/01/16 06:35 plan continue nebulizer / inhaled steroids/ tape IV steroids increase activity as tolerated continue lasix continue with PPI Problem List - Problems (1) COPD (chronic obstructive pulmonary disease) Assessment/Plan: nebulizer / IV steroids / inhaled steroids / singulair pulmonary consult appreciated O2 continued Code(s): J44.9 - CHRONIC OBSTRUCTIVE PULMONARY DISEASE, UNSPECIFIED Qualifiers : COPD type: COPD with acute exacerbation Qualified Code(s): J44.1 - Chronic obstructive pulmonary disease with (acute) exacerbation (2) Dyspnea on exertion Code(s): R06.09 - OTHER FORMS OF DYSPNEA (3) Acute exacerbation of chronic obstructive pulmonary disease Code(s): J44.1 - CHRONIC OBSTRUCTIVE PULMONARY DISEASE W (ACUTE) EXACERBATION (4) Chest pain Code(s): R07.9 - CHEST PAIN, UNSPECIFIED (5) Dyspnea Code(s): R06.00 - DYSPNEA, UNSPECIFIED (6) HTN (hypertension) Code(s): I10 - ESSENTIAL (PRIMARY) HYPERTENSION
--- NOTE | 2016-10-02 17:21 | PN ---
Progress Note (short form) - Note Progress Note: seen early am states breathing much better almost at baseline was able to ambulate in hallway yesterday afternoon states over all stronger Vital Signs Period Temp Pulse Resp BP Sys/Calvillo Pulse Ox Last 24 Hr 97.7 F-97.9 F 83-102 16-20 121-140/58-68 98-99 neck suppl e heart reg lungs good air movement some scattered rhonchi abd soft non tender ext no tenderness / no edema Active Medications Albuterol Sulfate (Ventolin 0.083% Nebulizer Soln -) 1 amp NEB Q4H PRN PRN Reason: SHORT OF BREATH/WHEEZING Albuterol/Ipratropium (Duoneb -) 1 amp NEB QIDR [facility] Last Admin: 10/02/16 12:35 Dose: 1 amp Amlodipine Besylate (Norvasc -) 5 mg PO DAILY [facility] Last Admin: 10/02/16 10:08 Dose: 5 mg Budesonide/Formoterol Fumarate (Symbicort 160/4.5mcg -) 2 puff IH BID [facility] Last Admin: 10/02/16 10:09 Dose: 2 puff Docusate Sodium (Colace -) 100 mg PO BID PRN PRN Reason: CONSTIPATION Furosemide (Lasix -) 40 mg PO DAILY [facility] Last Admin: 10/02/16 10:08 Dose: 40 mg Guaifenesin (Mucinex -) 600 mg PO BID [facility] Last Admin: 10/02/16 10:08 Dose: 600 mg Insulin Aspart (Novolog Vial Sliding Scale -) 1 vial SQ BIDAC [facility] PRN Reason: Protocol Last Admin: 10/02/16 07:00 Dose: Not Given Methylprednisolone Sodium Succinate (Solu-Medrol -) 40 mg IVPB BID [facility] Pantoprazole Sodium (Protonix -) 40 mg PO DAILY [facility] Last Admin: 10/02/16 10:08 Dose: 40 mg Polyethylene Glycol (Miralax (For Daily Use) -) 17 gm PO DAILY [facility] Last Admin: 10/02/16 10:08 Dose: Not Given Sucralfate (Carafate Oral Suspension -) 1 gm PO ACHS [facility] Last Admin: 10/02/16 10:09 Dose: 1 gm Tobramycin Sulfate (Tobrex Ophthalmic Solution -) 1 drop OD Q4HWA [facility] Stop: 10/03/16 23:59 Last Admin: 10/02/16 14:35 Dose: 1 drop steroid taper to 40 bid -- well tolerated discussed STR prior to D/c home -- she is agreeable will discuss with family would prefer [facility] Problem List - Problems (1) COPD (chronic obstructive pulmonary disease) Assessment/Plan: nebulizer / IV steroids / inhaled steroids / singulair pulmonary consult appreciated O2 continued continue to taper steroids IV inc activity as tolerated recommend STR Code(s): J44.9 - CHRONIC OBSTRUCTIVE PULMONARY DISEASE, UNSPECIFIED Qualifiers : COPD type: COPD with acute exacerbation Qualified Code(s): J44.1 - Chronic obstructive pulmonary disease with (acute) exacerbation (2) Dyspnea on exertion Assessment/Plan: improving clinically Code(s): R06.09 - OTHER FORMS OF DYSPNEA (3) Acute exacerbation of chronic obstructive pulmonary disease Code(s): J44.1 - CHRONIC OBSTRUCTIVE PULMONARY DISEASE W (ACUTE) EXACERBATION (4) Chest pain Assessment/Plan: atypical -- ?related to pulmonary status improved / resolved with respiratory treatment Code(s): R07.9 - CHEST PAIN, UNSPECIFIED (5) Dyspnea Code(s): R06.00 - DYSPNEA, UNSPECIFIED (6) HTN (hypertension) Code(s): I10 - ESSENTIAL (PRIMARY) HYPERTENSION
[2016-10-03] MEDS: SUCRALFATE 1 GM/10 ML UNIT DOSE CUPS PO SCH ×2 (06:26→10:10)
[2016-10-03] MEDS: INSULIN SLIDING SCALE (NOVOLOG) 1 VIAL SQ SCH (06:26)
[2016-10-03] MEDS: TOBRAMYCIN 0.3% OPHTH SOLN 5 ML BOTTLE OD SCH ×3 (06:26→15:10)
[2016-10-03] MEDS: ALBUTEROL SO4 2.5/IPRATROPIUM 0.5 INH SOL 3 ML VIAL.NEB. NEB SCH ×2 (06:45→12:07)
[2016-10-03] MEDS ORDERED: PT OWN MED DRAWER 7, Y5N ONE (09:35)
[2016-10-03] MEDS: BUDESONIDE/FORMETEROL FUMARATE 160/4.5 mcg INHALER IH SCH (10:05)
[2016-10-03] MEDS: POLYETHYLENE GLYCOL 3350 119 GM BTL PO SCH (10:06)
[2016-10-03] MEDS: amLODIPine BESYLATE 5 MG TABLET (FP) PO SCH (10:06)
[2016-10-03] MEDS: PANTOPRAZOLE 40 MG TABLET (FP) PO SCH (10:06)
[2016-10-03] MEDS: guaiFENesin 600 MG TABLET.ER (FP) PO SCH (10:06)
[2016-10-03] MEDS: methylPREDNISolone NA SUCC 40 MG/1 ML VIAL IVPB SCH (10:06)
[2016-10-03] MEDS: FUROSEMIDE 40 MG TABLET (FP) PO SCH (10:06)
--- NOTE | 2016-10-03 13:46 | DS ---
Physical Examination Vital Signs: Vital Signs Temperature 97.5 F L 10/03/16 10:00 Pulse Rate 76 10/03/16 11:06 Respiratory Rate 17 10/03/16 10:00 Blood Pressure 148/81 10/03/16 10:00 O2 Sat by Pulse Oximetry (%) 99 10/03/16 11:06 Findings/Remarks: 81 F, HTN, DVT S/P IVC Filter placement not on AC due to recurrent severe diverticular bleeding, rhematoid lung, CHF, and O2 dependent COPD since 05/2016 due to previous smoking history. Admitted via the ER due to progressive SOB And MCKEON over the past several days. No travel history or sick contacts. No fever or chills. No night sweats or hemoptysis. Constitutional: Yes: Well Nourished, No Distress, Calm Eyes: Yes: WNL, Conjunctiva Clear, EOM Intact HENT: Yes: WNL, Atraumatic, Normocephalic Neck: Yes: WNL, Supple Cardiovascular: Yes: Regular Rate and Rhythm, Pulse Irregular Respiratory: Yes: CTA Bilaterally, Diminished Gastrointestinal: Yes: WNL, Normal Bowel Sounds Renal/: Yes: WNL Breast(s): Yes: WNL Musculoskeletal: Yes: WNL Extremities: Yes: WNL Edema: No Peripheral Pulses WNL: Yes Integumentary: Yes: WNL Neurological: Yes: WNL, Alert, Oriented ...Motor Strength: WNL Psychiatric: Yes: WNL, Alert, Oriented Labs: CBC, BMP 10/01/16 06:35 10/01/16 06:35 Discharge Summary Reason For Visit: CHRONIC OBSTRUCTION PULMONARY DISEASE WITH ACUTE Current Active Problems COPD (chronic obstructive pulmonary disease) (Acute) Dyspnea on exertion (Acute) Hospital Course: patient admitted - treated with IV steroids and Neb treatment -- responded well No abx treatment given Dx Acute exacerbation COPD patient was offered STR and Pulmonary rehab but declined Condition: Improved - Instructions Diet, Activity, Other Instructions: as tolerated Instructed to use air conditioning at home and use of O2 Disposition: HOME - Home Medications Comprehensive Discharge Medication List: Ambulatory Orders Furosemide [Lasix -] 40 mg PO DAILY 05/29/16 Potassium Chloride 8 meq PO DAILY 05/29/16 Amlodipine Besylate [Norvasc -] 5 mg PO DAILY #30 tablet 06/05/16 Budesonide/Formeterol Fumarate [SYMBICORT 160/4.5mcg -] 2 puff IH BID #1 inhaler 06/05/16 Tiotropium [place] [Spiriva] 1 puff IH DAILY #1 inh 06/05/16
[2016-10-03 14:21] VITALS: BP 130/91; PULSE 85; TEMP 98
== END 2016-10-03 15:29 | disposition home or self-care (01) | DRG 191 ==
LOC: JER 10:01 → UNDOADMOB 13:29 → OBSVTOIN 13:29 → JERBED 13:29 → INTOOBSV 13:29 → JERBED 14:31 → OBSVTOIN 14:31 → J5S 15:35
PROVIDERS: ADMIT Family Medicine; ATTEND Family Medicine
DX: J44.1 Chronic obstructive pulmonary disease with (acute) exacerbation (principal); I50.30 Unspecified diastolic (congestive) heart failure; J98.11 Atelectasis; M05.10 Rheumatoid lung disease with rheumatoid arthritis of unspecified site; G25.0 Essential tremor; I27.2 Other secondary pulmonary hypertension; K57.90 Diverticulosis of intestine, part unspecified, without perforation or abscess without bleeding; M19.90 Unspecified osteoarthritis, unspecified site; R07.89 Other chest pain; I11.0 Hypertensive heart disease with heart failure; Z86.718 Personal history of other venous thrombosis and embolism; Z99.81 Dependence on supplemental oxygen; Z87.891 Personal history of nicotine dependence
CPT/HCPCS: 36415; 71010-TC; 80048; 80053; 81003; 81015; 82550; 83735; 84100; 84484; 85025; 85027; 85610; 93005; 93010; 94640; 97116-GP; 97161-GP; 99284-25

== ENCOUNTER 2016-10-21 19:50 | Emergency (ER) | payer OTHER, MEDICARE ==
[2016-10-21 20:06] VITALS: BMI 25.3
--- NOTE | 2016-10-21 20:34 | PDOC ---
History of Present Illness - General Chief Complaint: Pain Stated Complaint: COPD/UPPER ABD Time Seen by Provider: 10/21/16 20:22 History Source: Patient Exam Limitations: No Limitations - History of Present Illness Initial Comments: 10/21/16 20:33 81yo Female patient w/ PmHx: COPD, GI Hemorrhage (18 units of PRBC), DVT presents to ED c/o abdominal pain x 1 week getting worse, CP, and trouble breathing. According to family, patient release 3 weeks ago from admission. Associated diarrhea, chills, and nausea. Denies fever, rectal bleeding, hematuria, dysuria, back pain, rash, cough, congestion, or any other complaints at this time. Patient not on any blood thinners. Dr. Tripathi- Cardiology Dr. Cisneros- Pulmonary Dr. Tracey- PCP Timing/Duration: 1 week Severity: moderate Modifying Factors: worse with: cold therapy, eating, immobilization, medication , movement, rest, other Associated Symptoms: reports: nausea/vomiting, shortness of breath, weakness. denies: denies symptoms, chest pain, cough, diaphoresis, fever/chills, headaches , loss of appetite, malaise, rash, seizure, syncope, other Aspirin Received prior to arrival: No: no aspirin today, unknown, 81 mg x 1, 81 mg x 2, 81 mg x 3, 81 mg x 4, 325 mg x 1, provided at home, provided by EMS, provided by ED [facility] Contraindications(Core Measure): Yes: Other (See HPI) Beta Maricel Contraindications(Core Measure): No: Not Prescribed, Allergy, Bradycardia (HR <60bpm), Advanced Heart Block, Pacemaker, Other Past History - Travel Traveled outside of the country in the last 30 days: No Close contact w/someone who was outside of country & ill: No - Past Medical History Allergies/Adverse Reactions: Allergies Allergy/AdvReac Type Severity Reaction Status Date / Time No Known Allergies Allergy Verified 10/21/16 20:00 Home Medications: Ambulatory Orders Potassium Chloride 8 meq PO DAILY 05/29/16 Budesonide/Formeterol Fumarate [SYMBICORT 160/4.5mcg -] 2 puff IH BID #1 inhaler 06/05/16 Tiotropium [place] [Spiriva] 1 puff IH DAILY #1 inh 06/05/16 Albuterol 0.083% Nebulizer Sandrita [Ventolin 0.083% Nebulizer Soln -] 1 amp NEB Q4H PRN #0 amp 10/03/16 Amlodipine Besylate [Norvasc -] 5 mg PO DAILY tablet 10/03/16 Furosemide [Lasix -] 40 mg PO DAILY tablet 10/03/16 Prednisone 10 mg PO BID 10/21/16 Cephalexin Monohydrate [Keflex -] 500 mg PO BID #14 capsule 10/22/16 Anemia: Yes (H/O RECEIVING BLOOD) Asthma: No Cancer: No Cardiac Disorders: Yes CVA: No COPD: Yes (LUNG PROBLEMS) CHF: No Dementia: No Diabetes: No GI Disorders: No Disorders: No HTN: Yes Hypercholesterolemia: Yes Kidney Stones: Yes Liver Disease: No Seizures: No Thyroid Disease: No - Surgical History Abdominal Surgery: No Appendectomy: No Cardiac Surgery: No Cholecystectomy: Yes Lung Surgery: No Neurologic Surgery: No Orthopedic Surgery: Yes (LEFT HIP REPLACEMENT , SARITA KNEE REPLACEMENT , LEFT SHOULDER REPLACEMENT) - Psycho/Social/Smoking Cessation Hx Anxiety: No Suicidal Ideation: No Smoking History: Never smoked Have you smoked in the past 12 months: No Cigars Per Day: 0 Information on smoking cessation initiated: No Hx Alcohol Use: No Drug/Substance Use Hx: No Substance Use Type: None Hx Substance Use Treatment: No Review of Systems - Review of Systems Able to Perform ROS?: Yes Is the patient limited Hebrew proficient: No Constitutional: Yes: Chills. No: Fever Respiratory: Yes: Shortness of Breath. No: Cough, Stridor, Wheezing Cardiac (ROS): Yes: Chest Pain. No: Edema, Lightheadedness, Palpitations, Syncope, Chest Tightness ABD/GI: Yes: Diarrhea, Nausea, Abdominal cramping. No: Constipated, Poor Appetite, Poor Fluid Intake, Vomiting Integumentary: No: Bruising, Dryness, Erythema Neurological: Yes: Weakness. No: Headache, Numbness, Seizure All Other Systems: Reviewed and Negative *Physical Exam - Vital Signs Last Vital Signs Temp Pulse Resp BP Pulse Ox 98.7 F 116 H 20 120/70 94 L 10/21/16 20:00 10/21/16 20:00 10/21/16 20:00 10/21/16 20:00 10/21/16 20:00 - Physical Exam General Appearance: Yes: Nourished, Appropriately Dressed. No: Apparent Distress, Mild Distress, Moderate Distress, Severe Distress Neck: positive: Trachea midline, Supple. negative: Lymphadenopathy (R), Lymphadenopathy (L) Respiratory/Chest: positive: Decreased Breath Sounds, Crackles Cardiovascular: positive: Tachycardia Gastrointestinal/Abdominal: positive: Normal Bowel Sounds, Tender, Soft, Tenderness (Upper abd LUQ). negative: Distended, Guarding, Rebound Musculoskeletal: positive: Normal Inspection. negative: CVA Tenderness Extremity: positive: Normal Capillary Refill, Normal Inspection, Normal Range of Motion, Pedal Edema. negative: Swelling, Calf Tenderness, Erythema, Inflammation Integumentary: positive: Normal Color, Dry, Warm. 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 NML intact, Fully Oriented, Alert, Normal Mood/ Affect, Normal Response, Motor Strength 08/10 ED Treatment Course - LABORATORY CBC & Chemistry Diagram: 10/21/16 20:40 10/21/16 20:40 - RADIOLOGY Radiology Studies Ordered: Category Date Time Status CHEST X-RAY PORTABLE* [RAD] Stat Radiology 10/21/16 20:29 Ordered *DC/Admit/Observation/Transfer Diagnosis at time of Disposition: Urinary tract infection Qualifiers: Urinary tract infection type: urethritis Qualified Code(s): N34.2 - Other urethritis - Discharge Dispostion Disposition: HOME Condition at time of disposition: Stable Admit: No - Prescriptions Prescriptions: Cephalexin Monohydrate [Keflex -] 500 mg PO BID #14 capsule - Patient Instructions Printed Discharge Instructions: DI for Urinary Tract Infection (UTI) Additional Instructions: FOLLOW UP WITH YOUR PRIMARY CARE PROVIDER. TAKE YOUR MEDICATIONS PRESCRIBED. DRINK PLENTY FLUIDS (WATER). RETURN IF SYMPTOMS WORSEN OR ANY CONCERN FOR FURTHER EVALUATION. Print Language: FILIPINO
[2016-10-21 21:00] LABS: BASOPHIL 1.2 % (0-2.0); EOSINOPHIL 4.4 % (0-4.5); MCH 25.7 pg (25.7-33.7); MCHC 31.5 g/dl (32.0-36.0); MEAN CELL VOLUME 81.6 fl (80-96); MEAN PLT VOLUME 8.2 fl (7.5-11.1); NEUTROPHILS 75.4 % (42.8-82.8); PLATELET COUNT 144 K/MM3 (134-434); RDW 17.7 % (11.6-15.6); WHITE BLOOD COUNT 7.2 K/mm3 (4.0-10.0)
[2016-10-21 21:09] LABS: INR 0.98 (0.82-1.09); PROTHROMBIN TIME (PATIENT) 10.8 SEC (9.98-11.88)
[2016-10-21 21:35] LABS: ALBUMIN 3.2 g/dl (3.4-5.0); AMYLASE 58 U/L (25-115); ANION GAP 11 (8-16); BILIRUBIN,TOTAL 1.3 mg/dL (0.2-1.0); CALCIUM 8.7 mg/dL (8.5-10.1); CO2 24 mmol/L (21-32); CREATININE 1.2 mg/dL (0.55-1.02); GLUCOSE,RANDOM 97 mg/dL (74-106); SGOT/AST 17 U/L (15-37); SGPT/ALT 16 U/L (12-78); TOT PROT 6.4 g/dl (6.4-8.2)
[2016-10-21 21:38] LABS: ALK PHOS 83 U/L (45-117); TROPONIN I < 0.02 ng/ml (0.00-0.05)
[2016-10-22 00:50] LABS: URINE APPEARANCE CLEAR; URINE BILIRUBIN NEGATIVE (NEGATIVE); URINE COLOR DKYELLOW; URINE GLUCOSE (UA) NEGATIVE (NEGATIVE); URINE KETONE TRACE (NEGATIVE); URINE NITRITE NEGATIVE (NEGATIVE); URINE UROBILINOGEN NEGATIVE mg/dL (0.2-1.0)
[2016-10-22 01:00] LABS: URINE BLOOD 1+ (NEGATIVE); URINE LEUK ESTERASE 3+ (NEGATIVE); URINE PROTEIN 1+ (NEGATIVE)
[2016-10-22 01:01] LABS: URINE BACTERIA RARE /hpf (NONE SEEN); URINE MUCUS RARE; URINE RBC 3 /hpf (0-3); URINE WBC 50 /hpf (3-5)
[2016-10-22] MEDS ORDERED: cefTRIAXone 1 GM/50 ML BAG (PRE-DOCKED) IVPB ONE (01:46)
[2016-10-22 07:56] VITALS: BP 129/78; PULSE 99; TEMP 97.6
--- NOTE | 2016-10-22 12:35 | EKG ---
Test Reason : Blood Pressure : / mmHG Vent. Rate : 110 BPM Atrial Rate : 110 BPM P-R Int : 146 ms QRS Dur : 076 ms QT Int : 318 ms P-R-T Axes : 041 007 056 degrees QTc Int : 430 ms SINUS TACHYCARDIA OTHERWISE NORMAL ECG WHEN COMPARED WITH ECG OF 29-SEP-2016 10:10, NO SIGNIFICANT CHANGE WAS FOUND Confirmed by GRACIELA BONILLA MD ([id number]) on 10/22/2016 12:35:39 PM Referred By: Confirmed By:GRACIELA BONILLA MD
== END 2016-10-22 09:22 | disposition home or self-care (01) ==
LOC: JER 19:50
DX: N34.2 Other urethritis (principal); I10 Essential (primary) hypertension; E78.00 Pure hypercholesterolemia, unspecified; J44.9 Chronic obstructive pulmonary disease, unspecified; Z86.718 Personal history of other venous thrombosis and embolism; Z87.19 Personal history of other diseases of the digestive system
CPT/HCPCS: 36415; 71010-TC; 80053; 81003; 81015; 82150; 82550; 83605; 83690; 83880; 84484; 85025; 85610; 85730; 87086; 93005; 93010; 99283-25